=== PATIENT | male | born 1950 | race Hispanic/Latino ===

== ENCOUNTER 2019-03-31 06:05 | Inpatient (IN) | payer MEDICARE ==
[2019-03-31 06:52] LABS: Basophils # (Auto) 0.1 K/mm3 (0.0-0.1); Basophils % (Auto) 0.8 % (0.0-1.8); Eosinophils # (Auto) 0.1 K/mm3 (0.0-0.4); Eosinophils % (Auto) 2.3 % (0.0-4.3); Hematocrit 34.6 % (35.5-45.6); Hemoglobin 11.8 gm/dl (11.8-15.2); Lymphocytes # (Auto) 1.5 K/mm3 (1.2-5.4); Lymphocytes % (Auto) 23.3 % (13.4-35.0); Mean Corpuscular HGB Conc 34 % (32-34); Mean Corpuscular Volume 99 fl (84-94); Monocytes # (Auto) 0.5 K/mm3 (0.0-0.8); Monocytes % (Auto) 8.4 % (0.0-7.3); Platelet Count 198 K/mm3 (140-440); Red Blood Count 3.49 M/mm3 (3.65-5.03); Red Cell Distribution Width 13.7 % (13.2-15.2)
[2019-03-31] MEDS ORDERED: NACL 0.9% 500 ML 500 ML IV SCH (07:00)
[2019-03-31 07:02] LABS: INR 1.09 (0.87-1.13)
[2019-03-31 07:03] LABS: Partial Thromboplastin Time 29.7 Sec. (24.2-36.6)
[2019-03-31 07:09] LABS: BUN/Creatinine Ratio 18; Blood Urea Nitrogen 14 mg/dL (9-20); Calcium 8.5 mg/dL (8.4-10.2); Hemolysis Index 6
[2019-03-31] MEDS ORDERED: HEPARIN/NS 5000 UNIT/500ML(CATH LAB) 1,000 ML IR ONE ×2 (08:24→13:52)
[2019-03-31] MEDS ORDERED: XYLOCAINE 2% INFILTRATI ONE ×3 (08:25→13:52)
[2019-03-31] MEDS ORDERED: CALAN ONE ×2 (08:25→13:52)
[2019-03-31] MEDS ORDERED: NITROGLYCERIN SYRINGE 3 ML ONE ×2 (08:25→13:53)
[2019-03-31] MEDS ORDERED: VERSED ONE ×2 (08:26→13:53)
[2019-03-31] MEDS: SUBLIMAZE ONE ×2 (09:12→10:00)
[2019-03-31] MEDS: HEPARIN 10,000 UNITS/10 ML ONE ×2 (09:43→09:59)
[2019-03-31] MEDS ORDERED: ATROPINE 0.1% (CARDIAC) ONE ×2 (10:01→14:15)
[2019-03-31] MEDS ORDERED: PLAVIX ONE (10:12)
[2019-03-31] MEDS ORDERED: ALUM-MAG HYDROX-SIMETH 200-200-20MG/5ML ONE (10:13)
[2019-03-31] MEDS ORDERED: HEPARIN 10,000 UNITS/10 ML ONE ×2 (10:20→13:52)
--- NOTE | 2019-03-31 10:36 | Cardiac Catherization Report ---
CARDIAC CATHETERIZATION REFERRING PHYSICIAN: Delfin Stubbs MD. INDICATION FOR PROCEDURE: The patient is seen as an unscheduled visit in the office yesterday, found to have unstable angina, recurrent chest pain typical features, stress test last year unremarkable, known history of complex coronary artery disease, bypass, multiple PCIs, referred here for left heart catheterization. Risks, benefits, alternatives were discussed. The patient is already on antianginals. PROCEDURE IN DETAIL: The patient was brought to catheterization lab in a postabsorptive state, prepped and draped in sterile fashion. Significant right groin peripheral vascular disease noted. We used the left groin approach, 8 mL of 2% lidocaine used to anesthetize the left groin. A standard 6-Portuguese sheath placed in the left common femoral artery via modified Seldinger technique. All exchanges were performed to exchange a J-tip guidewire. JL3.5 catheter used to engage the left main. No dampening or ventricularization. Cineangiography performed in all projections. JR4 catheter used to cross the aortic valve under fluoroscopic guidance. Left ventriculography performed in 30 PIERRE and 30 ERIC projections via hand injections, catheter flushed. Manual pullback performed with continuous pressure monitoring. Catheter used to engage the right coronary. No dampening or ventricularization. Cineangiography performed in all projections. Next, catheter used to engage both SVGs. Cineangiography performed in all projections. Next, catheter used to engage the left subclavian and advanced carefully into the mid left subclavian, difficulty engaging the BAKER. Selective third order left subclavian angiography was performed. Next, selective BAKER angiography was performed in multiple projections. Next, catheter was carefully withdrawn from the left subclavian over a wire. DATA: Aortic pressure is 160/70, LV pressure is 160, LVEDP of 15 mmHg. Left ventriculography reveals normal systolic performance with estimated ejection fraction of 55-60%. No evidence of aortic stenosis. CORONARY ANATOMY: This is a right dominant system. Left main without significant disease, bifurcates left anterior descending and left circumflex. Left circumflex is [id number] sized vessel, courses AV groove, mild to moderate diffuse disease. Stent in the mid left circumflex is patent. No obstructive disease identified. Mid LAD is chronically occluded. There is a 70% proximal LAD stenosis, but feeds just 2 small diagonals, patent BAKER to LAD, patent SVG to OM. The right coronary is small with a chronic total occlusion distally. SVG to right coronary with a 90-95% eccentric ulcerated stenosis. This is the culprit lesion undoubtedly. BAKER to LAD is patent. Left subclavian without significant disease. At this point, we turned our attention to PCI. Heparin was given. Abnormal ACT is confirmed. The patient has already been loaded with aspirin and Plavix. I used a JR4 guide to engage the SVG to RCA. I used a pressure wire. IFR was noted to be 0.83, which is physiologically significant. Next, we direct stented with an [place] 2.75 x 22. Excellent angiographic result, 12 BEAU for 30 seconds. Intravascular ultrasound was performed, multiple passes were made, which reveals a well apposed and well expanded stent. Excellent final result, no complications are noted. The patient is clinically stable, chest pain free. I directly supervised the administration of moderate sedation with fentanyl and Versed from 9:11 a.m. to 10:06 a.m. No complications are noted. CONCLUSIONS: 1. Severe and complex multivessel coronary artery disease in this right dominant system. 2. Chronic total occlusion of the mid LAD with patent BAKER to LAD. 3. Occluded OM1 with patent SVG to OM. 4. Patent mid left circumflex stent, moderate diffuse small vessel disease in the distal left circumflex system. 5. Occlusion of the mid right coronary. 6. Ulcerated hazy culprit 95% stenosis of the mid SVG to RCA. Successful iFR/FFR directed and IVUS guided PCI with placement of drug-eluting stent Mauricio (2.75 x 22) with excellent final angiographic and ultrasonographic results. No immediate complications were noted. 7. Preserved left ventricular systolic performance, estimated ejection fraction of 55-60%. 8. No evidence of aortic stenosis. 9. High normal LVEDP. 10. Patent left subclavian. The patient is clinically stable, chest pain free. Standard groin care post-sheath once ACT less than 170. Blood pressure control. Aspirin, Plavix, statin therapy, primary and secondary prevention measures. Diet and lifestyle modification. Anticipate discharge in a.m. Results of procedure explained to the patient and family. All questions and concerns were addressed. JOB# [id number] SBM/NTS
[2019-03-31] MEDS ORDERED: MORPHINE ONE (13:37)
[2019-03-31] MEDS ORDERED: NACL 0.9% 1000 ML 1,000 ML ONE (13:46)
[2019-03-31] MEDS ORDERED: SUBLIMAZE ONE (13:53)
[2019-03-31] MEDS ORDERED: XYLOCAINE CARDIAC IV ONE (14:15)
[2019-03-31] MEDS ORDERED: ADRENALIN ONE (14:15)
[2019-03-31] MEDS ORDERED: PHENYLEPHRINE/NS Syringe 1,000 MCG/10 ML IV ONE (14:15)
[2019-03-31] MEDS ORDERED: NITROSTAT SL PRN (14:35)
[2019-03-31] MEDS ORDERED: D50W (25GM) Syringe IV PRN (14:36)
[2019-03-31] MEDS ORDERED: NACL 0.9% 500 ML 500 ML ONE (14:38)
[2019-03-31 14:44] LABS: Basophils % (Auto) 0.6 % (0.0-1.8); Eosinophils # (Auto) 0.1 K/mm3 (0.0-0.4); Eosinophils % (Auto) 1.7 % (0.0-4.3); Hematocrit 25.7 % (35.5-45.6); Hemoglobin 9.1 gm/dl (11.8-15.2); Lymphocytes # (Auto) 1.5 K/mm3 (1.2-5.4); Lymphocytes % (Auto) 21.9 % (13.4-35.0); Mean Corpuscular HGB Conc 35 % (32-34); Mean Corpuscular Volume 98 fl (84-94); Monocytes # (Auto) 0.5 K/mm3 (0.0-0.8); Monocytes % (Auto) 6.9 % (0.0-7.3); Platelet Count 180 K/mm3 (140-440); Red Blood Count 2.63 M/mm3 (3.65-5.03); Red Cell Distribution Width 13.4 % (13.2-15.2)
--- NOTE | 2019-03-31 14:55 | Consultation ---
History of Present Illness Consult date: 03/31/19 Requesting physician: MANOJ RODRIGUEZ Consult reason: other (cad) History of present illness: The pt is a 68 YO male with a past medical history of CAD s/p CABG and multiple PCIs, PVD, HTN, HLP, DM, PAF. He is followed in our office by Dr. Adrianne Stubbs. Pt presented today for scheduled elective LHC and subsequently underwent PCI of SVG to RCA via left groin approach. He was clinically and hemodynamically stable throughout LHC and PCI. His left groin sheath was pulled and pt subsequently developed left groin hematoma. He was evaluated by Dr. All Mary and was taken back to labor relations specialist where he underwent angiogram with ballooning and stenting of left SFA. He is being admitted per hospitalist to CCU. He is receiving PRBC tx. Past History Past Medical History: atrial fib, CAD, diabetes, hypertension, hyperlipidemia Medications and Allergies Allergies Allergy/AdvReac Type Severity Reaction Status Date / Time No Known Allergies Allergy Unverified 03/16/14 06:50 Home Medications Medication Instructions Recorded Confirmed Last Taken Type Aspirin [Adult Aspirin] 81 mg PO DAILY 03/31/19 03/31/19 03/30/19 History AtorvaSTATin [Lipitor] 20 mg PO DAILY 03/31/19 03/31/19 03/30/19 History Carvedilol [Coreg] 6.25 mg PO BID 03/31/19 03/31/19 03/30/19 History Clopidogrel [Plavix] 75 mg PO QDAY 03/31/19 03/31/19 03/30/19 History Ferrous Sulfate [Slow Release Iron 54 mg PO DAILY 03/31/19 03/31/19 03/30/19 History 47.5 Mg tab] Furosemide [Lasix TAB] 40 mg PO DAILY 03/31/19 03/31/19 03/30/19 History Gabapentin [Neurontin] 600 mg PO TID 03/31/19 03/31/19 03/30/19 History Lisinopril [Zestril TAB] 40 mg PO DAILY 03/31/19 03/31/19 03/30/19 History Mv,Will,Min/Iron/Folic Acid/Lut 1 each PO DAILY 03/31/19 03/31/19 03/30/19 History [Complete Multi Tablet] Nitroglycerin [Nitrostat] 0.4 mg SL Q5M PRN 03/31/19 03/31/19 3 Months Ago History ~12/29/18 Active Meds: Active Medications Aspirin (Aspirin) 325 mg PO QDAY [facility] Atorvastatin Calcium (Lipitor) 20 mg PO QHS [facility] Carvedilol (Coreg) 6.25 mg PO BID [facility] Clopidogrel Bisulfate (Plavix) 75 mg PO QDAY [facility] Dextrose (D50w (25gm) Syringe) 50 ml IV PRN PRN PRN Reason: Hypoglycemia Furosemide (Lasix) 40 mg PO DAILY@0600 [facility] Sodium Chloride (Nacl 0.9% 500 Ml) 500 mls @ 50 mls/hr IV DIRECT [facility] Stop: 03/31/19 16:59 Last Admin: 03/31/19 07:15 Dose: 50 mls/hr Documented by: Insulin Human Lispro (Humalog) 0 unit SUB-Q ACHS [facility]; Protocol Lisinopril (Zestril) 40 mg PO DAILY [facility] Nitroglycerin (Nitrostat) 0.4 mg SL Q5M PRN PRN Reason: Chest Pain Review of Systems Constitutional: no weight loss, no weight gain, no fever, no chills, no sweats Ears, nose, mouth and throat: no ear pain, no nose pain, no sinus pressure, no sinus pain Cardiovascular: no chest pain, no shortness of breath, no dyspnea on exertion Respiratory: no cough Gastrointestinal: no abdominal pain, no nausea Genitourinary Male: no dysuria, no hematuria Musculoskeletal: no neck stiffness, no neck pain Integumentary: no rash, no pruritis, no redness, no sores, no wounds Neurological: no head injury, no paralysis, no weakness, no parathesias, no numbness, no tingling, no seizures, no syncope Psychiatric: no anxiety Endocrine: no cold intolerance, no heat intolerance Hematologic/Lymphatic: no easy bruising, no easy bleeding Allergic/Immunologic: no urticaria, no wheezing Physical Examination Vital Signs Temp Pulse Resp BP Pulse Ox 97.7 F 62 20 152/69 100 03/31/19 06:25 03/31/19 06:25 03/31/19 06:25 03/31/19 06:25 03/31/19 06:25 HEENT: Positive: PERRL, Normocephaly, Mucus Membranes Moist Neck: Positive: neck supple, trachea midline Cardiac: Positive: Reg Rate and Rhythm, S1/S2 Lungs: Positive: Decreased Breath Sounds Neuro: Positive: Grossly Intact Incision: Cardiac Cath Site (left groin hematoma) Extremities: Absent: edema Results 03/31/19 14:18 03/31/19 06:40 Coagulation 03/31/19 Range/Units 06:40 PT 13.8 (12.2-14.9) Sec. INR 1.09 (0.87-1.13) APTT 29.7 (24.2-36.6) Sec. CBC 03/31/19 03/31/19 Range/Units 06:40 14:18 WBC 6.5 6.7 (4.5-11.0) K/mm3 RBC 3.49 L 2.63 L (3.65-5.03) M/mm3 Hgb 11.8 9.1 L (11.8-15.2) gm/dl Hct 34.6 L (35.5-45.6) % Plt Count 198 180 (140-440) K/mm3 Lymph # 1.5 1.5 (1.2-5.4) K/mm3 [place] # 0.5 0.5 (0.0-0.8) K/mm3 Eos # 0.1 0.1 (0.0-0.4) K/mm3 Baso # 0.1 0.0 (0.0-0.1) K/mm3 Comprehensive Metabolic Panel 03/31/19 Range/Units 06:40 Sodium 147 H (137-145) mmol/L Potassium 3.8 (3.6-5.0) mmol/L Chloride 110.1 H (98-107) mmol/L Carbon Dioxide 28 (22-30) mmol/L BUN 14 (9-20) mg/dL Creatinine 0.8 (0.8-1.5) mg/dL Glucose 108 H (75-100) mg/dL Calcium 8.5 (8.4-10.2) mg/dL - Imaging and Cardiology Cardiac cath: report reviewed EKG: report reviewed, image reviewed EKG interpretations - Telemetry EKG Rhythm: Sinus Rhythm - EKG Sinus rhythms and dysrhythmias: sinus rhythm Assessment and Plan Currently stable cardiac status s/p intervention of left SFA, currently receiving PRBC tx. To be admitted per hospitalist and tx to CCU. Monitor closely. The patient has been seen in conjunction with Dr. Adrianne Stubbs who agrees with the assessment and plan of care. - Patient Problems (1) Hematoma Current Visit: Yes Status: Acute (2) CAD (coronary artery disease) Current Visit: Yes Status: Chronic (3) Hx of CABG Current Visit: Yes Status: Chronic (4) Stented coronary artery Current Visit: Yes Status: Chronic (5) HTN (hypertension) Current Visit: Yes Status: Chronic (6) Hyperlipidemia Current Visit: Yes Status: Chronic (7) Diabetes Current Visit: Yes Status: Chronic (8) PVD (peripheral vascular disease) Current Visit: Yes Status: Chronic
[2019-03-31] MEDS: NORCO 5/325 PO PRN ×2 (15:20→21:54)
--- NOTE | 2019-03-31 15:22 | Event Note ---
Date: 03/31/19 Called to see patient the patient emergently in the OPPU for and expanding hematoma from the left groin access site associated with hypotenison. Upon arrival, patient with large left groin hematoma and pale appearance. Patient well known to me. Quickly discussed with the and decided to proceed emergently to back to the cathlab for diagnotic angiogram, of the left leg, with possible intervention.
--- NOTE | 2019-03-31 15:29 | History and Physical Report ---
History of Present Illness Date of admission: 03/31/19 14:42 Chief complaint: Low blood pressure History of present illness: 68 YO Male with HTN, HLD, Obesity, PVD, DM, CAD S/P CABG and multiple PCI, Paroxysmal Atrial Fib admitted directly to ICU s/p Left groin access. The patient was found to have an expanding left groin hematoma. Vascular surgery consulted and patient was taken urgently to the operating room. Pt was treated with surgical intervention. Pt admitted to ICU postoperatively. Pt resting comfortably postoperatively. Past History Past Medical History: atrial fib, CAD, diabetes, hypertension, hyperlipidemia Past Surgical History: Other (Vascular surgery.) Social history: , lives with family. denies: smoking, alcohol abuse, prescription drug abuse Family history: hypertension Medications and Allergies Allergies Allergy/AdvReac Type Severity Reaction Status Date / Time No Known Allergies Allergy Unverified 03/16/14 06:50 Home Medications Medication Instructions Recorded Confirmed Last Taken Type Aspirin [Adult Aspirin] 81 mg PO DAILY 03/31/19 03/31/19 03/30/19 History AtorvaSTATin [Lipitor] 20 mg PO DAILY 03/31/19 03/31/19 03/30/19 History Carvedilol [Coreg] 6.25 mg PO BID 03/31/19 03/31/19 03/30/19 History Clopidogrel [Plavix] 75 mg PO QDAY 03/31/19 03/31/19 03/30/19 History Ferrous Sulfate [Slow Release Iron 54 mg PO DAILY 03/31/19 03/31/19 03/30/19 History 47.5 Mg tab] Furosemide [Lasix TAB] 40 mg PO DAILY 03/31/19 03/31/19 03/30/19 History Gabapentin [Neurontin] 600 mg PO TID 03/31/19 03/31/19 03/30/19 History Lisinopril [Zestril TAB] 40 mg PO DAILY 03/31/19 03/31/19 03/30/19 History Mv,Will,Min/Iron/Folic Acid/Lut 1 each PO DAILY 03/31/19 03/31/19 03/30/19 History [Complete Multi Tablet] Nitroglycerin [Nitrostat] 0.4 mg SL Q5M PRN 03/31/19 03/31/19 3 Months Ago History ~12/29/18 Active Meds: Active Medications Acetaminophen/Hydrocodone Bitart ([place] 5/325) 1 each PO NOW PRN PRN Reason: Pain, Moderate (4-6) Last Admin: 03/31/19 15:20 Dose: 1 each Documented by: Aspirin (Aspirin) 325 mg PO QDAY [facility] Atorvastatin Calcium (Lipitor) 20 mg PO QHS [facility] Carvedilol (Coreg) 6.25 mg PO BID [facility] Clopidogrel Bisulfate (Plavix) 75 mg PO QDAY [facility] Dextrose (D50w (25gm) Syringe) 50 ml IV PRN PRN PRN Reason: Hypoglycemia Furosemide (Lasix) 40 mg PO DAILY@0600 [facility] Sodium Chloride (Nacl 0.9% 500 Ml) 500 mls @ 50 mls/hr IV DIRECT [facility] Stop: 03/31/19 16:59 Last Admin: 03/31/19 07:15 Dose: 50 mls/hr Documented by: Insulin Human Lispro (Humalog) 0 unit SUB-Q ACHS [facility]; Protocol Lisinopril (Zestril) 40 mg PO DAILY [facility] Nitroglycerin (Nitrostat) 0.4 mg SL Q5M PRN PRN Reason: Chest Pain Review of Systems Constitutional: no weight loss, no weight gain, no fever, no chills Ears, nose, mouth and throat: no ear pain, no ear discharge, no tinnitis, no decreased hearing, no nasal congestion Cardiovascular: no chest pain, no orthopnea, no palpitations, no rapid/irregular heart beat Respiratory: no cough, no cough with sputum, no excessive sputum, no hemoptysis Gastrointestinal: no nausea, no vomiting, no diarrhea, no constipation Genitourinary Male: no hematuria, no flank pain, no discharge, no urinary frequency, no urinary hesitancy Rectal: no pain, no incontinence, no bleeding Musculoskeletal: no neck stiffness, no neck pain, no shooting arm pain, no arm numbness/tingling, no low back pain Integumentary: no rash, no pruritis, no redness, no sores, no wounds Neurological: no transient paralysis, no paralysis, no weakness, no parathesias, no numbness Psychiatric: no anxiety, no memory loss, no change in sleep habits, no sleep disturbances, no insomnia, no hypersomnia, no change in appetite Endocrine: no heat intolerance, no polyphagia, no excessive thirst, no polydipsia, no polyuria, no nocturia, no excessive sweating Hematologic/Lymphatic: no easy bruising, no easy bleeding, no lymphadenopathy Allergic/Immunologic: no urticaria, no allergic rhinitis Exam - Constitutional Vitals: Temp Pulse Resp BP Pulse Ox 97.5 F L 58 L 16 120/55 100 03/31/19 14:58 03/31/19 15:15 03/31/19 15:20 03/31/19 15:11 03/31/19 15:15 General appearance: Present: mild distress - EENT Eyes: Present: PERRL ENT: hearing intact, clear oral mucosa - Neck Neck: Present: supple, normal ROM - Respiratory Respiratory effort: normal Respiratory: bilateral: CTA - Cardiovascular Heart Sounds: Present: S1 & S2. Absent: rub, click - Extremities Extremities: pulses symmetrical, No edema Peripheral Pulses: within normal limits - Abdominal General gastrointestinal: Present: soft, non-tender, non-distended, normal bowel sounds Male genitourinary: Present: normal - Integumentary Integumentary: Present: clear, warm, dry - Musculoskeletal Musculoskeletal: gait normal, strength equal bilaterally - Psychiatric Psychiatric: appropriate mood/affect, intact judgment & insight - Neurologic Neurologic: CNII-XII intact, moves all extremities Results - Labs CBC & Chem 7: 03/31/19 14:18 03/31/19 06:40 Labs: Abnormal lab results 03/31/19 03/31/19 03/31/19 Range/Units 06:40 06:40 10:02 RBC 3.49 L (3.65-5.03) M/mm3 Hgb (11.8-15.2) gm/dl Hct 34.6 L (35.5-45.6) % MCV 99 H (84-94) fl MCH 34 H (28-32) pg MCHC (32-34) % [place] % (Auto) 8.4 H (0.0-7.3) % Activated Clotting Time 197 H (74-137) Sodium 147 H (137-145) mmol/L Chloride 110.1 H (98-107) mmol/L Glucose 108 H (75-100) mg/dL Crossmatch 03/31/19 03/31/19 03/31/19 Range/Units 10:18 12:36 13:00 RBC (3.65-5.03) M/mm3 Hgb (11.8-15.2) gm/dl Hct (35.5-45.6) % MCV (84-94) fl MCH (28-32) pg MCHC (32-34) % [place] % (Auto) (0.0-7.3) % Activated Clotting Time 224 H 186 H 169 H (74-137) Sodium (137-145) mmol/L Chloride (98-107) mmol/L Glucose (75-100) mg/dL Crossmatch 03/31/19 03/31/19 Range/Units 14:18 14:18 RBC 2.63 L (3.65-5.03) M/mm3 Hgb 9.1 L (11.8-15.2) gm/dl Hct 25.7 L D (35.5-45.6) % MCV 98 H (84-94) fl MCH 35 H (28-32) pg MCHC 35 H (32-34) % [place] % (Auto) (0.0-7.3) % Activated Clotting Time (74-137) Sodium (137-145) mmol/L Chloride (98-107) mmol/L Glucose (75-100) mg/dL Crossmatch See Detail Assessment and Plan - Patient Problems (1) PVD (peripheral vascular disease) Current Visit: Yes Status: Chronic Plan to address problem: Complicated by Left Groin Hematoma: Vascular surgery consulted. Pt is S/P surgical intervention. supportive care. Admit to ICU, CBC, PRBC transfusion. critical care team consulted. The high probability of a clinically significant, sudden or life threatening deterioration of the [vascular, hematologic] system(s) required my full and direct attention, intervention and personal management. The aggregate critical care time was [65] minutes. This time is in addition to time spent performing reported procedures but includes the following: [x] Data Review and interpretation [x] Patient assessment and monitoring of vital signs [x] Documentation [x] Medication orders and management (2) Diabetes Current Visit: Yes Status: Chronic Plan to address problem: ADA diet, insulin, accu check, hypoglycemia protocol (3) HTN (hypertension) Current Visit: Yes Status: Chronic Qualifiers: Hypertension type: essential hypertension Qualified Code(s): I10 - Essential (primary) hypertension Plan to address problem: Monitor bp q shift, supportive care (4) DVT prophylaxis Current Visit: Yes Status: Acute Plan to address problem: SCD to BLE while in bed, supportive care, anticoagulation as per vascular surgery service.
--- NOTE | 2019-03-31 16:59 | Consultation ---
History of Present Illness - Reason for Consult Consult date: 03/31/19 Bleeding from Left Groin Access Site Requesting physician: TEMO BRODY - History of Present Illness The patient is a 68-year-old male who is well-known to me. I have treated him in the past for peripheral vessel disease. Today he underwent PCI for angina and post procedure he was taken to the recovery area for sheath pull. The recovery area after having his sheath will be initially did well however he began to complain of groin pain in developed an expanding left groin hematoma despite pressure being held over the access area. Pressure was held for an extended period of time and despite holding pressure the hematoma continued to expand. I was called emergently to evaluate the patient. Upon evaluation the patient was hemodynamically stable however he appeared pale. He was complaining of groin pain. The reminded me that he had a similar episode after I performed a peripheral vascular procedure in the past. He had no other complaints at that time. Past History Past Medical History: atrial fib, CAD, diabetes, hypertension, hyperlipidemia, PVD Past Surgical History: Other (lower arteriogram with intervention) Social history: Medications and Allergies Allergies Allergy/AdvReac Type Severity Reaction Status Date / Time No Known Allergies Allergy Unverified 03/16/14 06:50 Home Medications Medication Instructions Recorded Confirmed Last Taken Type Aspirin [Adult Aspirin] 81 mg PO DAILY 03/31/19 03/31/19 03/30/19 History AtorvaSTATin [Lipitor] 20 mg PO DAILY 03/31/19 03/31/19 03/30/19 History Carvedilol [Coreg] 6.25 mg PO BID 03/31/19 03/31/19 03/30/19 History Clopidogrel [Plavix] 75 mg PO QDAY 03/31/19 03/31/19 03/30/19 History Ferrous Sulfate [Slow Release Iron 54 mg PO DAILY 03/31/19 03/31/19 03/30/19 History 47.5 Mg tab] Furosemide [Lasix TAB] 40 mg PO DAILY 03/31/19 03/31/19 03/30/19 History Gabapentin [Neurontin] 600 mg PO TID 03/31/19 03/31/19 03/30/19 History Lisinopril [Zestril TAB] 40 mg PO DAILY 03/31/19 03/31/19 03/30/19 History Mv,Will,Min/Iron/Folic Acid/Lut 1 each PO DAILY 03/31/19 03/31/19 03/30/19 History [Complete Multi Tablet] Nitroglycerin [Nitrostat] 0.4 mg SL Q5M PRN 03/31/19 03/31/19 3 Months Ago History ~12/29/18 Active Meds: Active Medications Acetaminophen/Hydrocodone Bitart ([place] 5/325) 1 each PO NOW PRN PRN Reason: Pain, Moderate (4-6) Last Admin: 03/31/19 15:20 Dose: 1 each Documented by: Aspirin (Aspirin) 325 mg PO QDAY [facility] Atorvastatin Calcium (Lipitor) 20 mg PO QHS [facility] Carvedilol (Coreg) 6.25 mg PO BID [facility] Clopidogrel Bisulfate (Plavix) 75 mg PO QDAY [facility] Dextrose (D50w (25gm) Syringe) 50 ml IV PRN PRN PRN Reason: Hypoglycemia Furosemide (Lasix) 40 mg PO DAILY@0600 [facility] Sodium Chloride (Nacl 0.9% 500 Ml) 500 mls @ 50 mls/hr IV DIRECT [facility] Stop: 03/31/19 16:59 Last Admin: 03/31/19 07:15 Dose: 50 mls/hr Documented by: Insulin Human Lispro (Humalog) 0 unit SUB-Q ACHS [facility]; Protocol Lisinopril (Zestril) 40 mg PO DAILY [facility] Nitroglycerin (Nitrostat) 0.4 mg SL Q5M PRN PRN Reason: Chest Pain Review of Systems ROS unobtainable: due to mental status Exam - Constitutional Vitals: Temp Pulse Resp BP Pulse Ox 97.5 F L 60 14 127/61 100 03/31/19 15:15 03/31/19 16:30 03/31/19 16:30 03/31/19 16:30 03/31/19 16:30 General appearance: Present: severe distress - Cardiovascular Rhythm: other (bradycardia) - Extremities Extremities: abnormal (large left graoin hematoma) Results - Labs CBC & Chem 7: 03/31/19 14:18 03/31/19 06:40 Labs: Abnormal lab results 03/31/19 03/31/19 03/31/19 Range/Units 06:40 06:40 10:02 RBC 3.49 L (3.65-5.03) M/mm3 Hgb (11.8-15.2) gm/dl Hct 34.6 L (35.5-45.6) % MCV 99 H (84-94) fl MCH 34 H (28-32) pg MCHC (32-34) % [place] % (Auto) 8.4 H (0.0-7.3) % Activated Clotting Time 197 H (74-137) Sodium 147 H (137-145) mmol/L Chloride 110.1 H (98-107) mmol/L Glucose 108 H (75-100) mg/dL Crossmatch 03/31/19 03/31/19 03/31/19 Range/Units 10:18 12:36 13:00 RBC (3.65-5.03) M/mm3 Hgb (11.8-15.2) gm/dl Hct (35.5-45.6) % MCV (84-94) fl MCH (28-32) pg MCHC (32-34) % [place] % (Auto) (0.0-7.3) % Activated Clotting Time 224 H 186 H 169 H (74-137) Sodium (137-145) mmol/L Chloride (98-107) mmol/L Glucose (75-100) mg/dL Crossmatch 03/31/19 03/31/19 Range/Units 14:18 14:18 RBC 2.63 L (3.65-5.03) M/mm3 Hgb 9.1 L (11.8-15.2) gm/dl Hct 25.7 L D (35.5-45.6) % MCV 98 H (84-94) fl MCH 35 H (28-32) pg MCHC 35 H (32-34) % [place] % (Auto) (0.0-7.3) % Activated Clotting Time (74-137) Sodium (137-145) mmol/L Chloride (98-107) mmol/L Glucose (75-100) mg/dL Crossmatch See Detail Assessment and Plan Patient with with expanding left groin hematoma after intervention. Proceed emergently to cathlab for left lower extremity arteriogram with possible intervention.
--- NOTE | 2019-03-31 17:39 | Operative Report ---
Operative Report Operative Report: Date of Procedure: 03/31/2019 Pre-operative Diagnosis: Expanding Left Groin Hematoma Post-operative Diagnosis: Same Procedure(s): 1. Ultrasound-Guided Access Right Common Femoral Artery 2. Diagnostic Left Lower Extremity Arteriogram 3. Angioplasty and Stent of Left Common Femoral Artery To Control Hemorrhage with 8 x 5 cm Viabahn Stent Graft and 8 x 60 Hob[place] Balloon 4. Closure of Right Femoral Arteriotomy with 6 Vincentian Angio-Seal 5. Radiologic Supervision with Interpretation Surgeon: All Mary M.D. Housekeeper Child Care: None Anesthesia: 2% Lidocaine EBL: Minimal Counts: Correct Complications: None Condition: Critical But Stable Findings: Active extravasation from left femoral arteriotomy after PCI. After intervention there was no active bleeding noted. Specimen: None Indication: The patient is a 68-year-old male who underwent PCI to left femoral access today. After removal of the sheath, and the recovery area, he was noted to have an expanding left groin hematoma with hypotension. I was called to emergently evaluate the patient. Upon evaluation he was noted to have the expanding hematoma with some hypotension and pale appearance. It was decided that he required return to the label drier for diagnostic arteriogram and possible intervention. I discussed the risk, benefits, and alternatives with his and transported emergently for the procedure. Description of Procedure: The patient was taken to the label drier and laid in supine position. His right groin was then prepped and draped in normal sterile fashion. Ultrasound was used to identify the right common femoral artery and confirmed patency. Once patency was confirmed the overlying skin and soft tissue was anesthetized with lidocaine. A micropuncture technique was used with ultrasound guidance to access the right common femoral artery in retrograde fashion. A 0.035 Bentson wire was advanced to the aorta and a 5 Vincentian sheath was placed by Seldinger technique. An Omni Flush catheter and Bentson wire were advanced over the bifurcation and a left lower extremity arteriograms performed there revealed a large area of active extravasation from the common femoral artery centered over the femoral head. Once this was discovered the Bentson wire was advanced into the SFA and I quickly removed the Omni Flush catheter and advanced a 7 x 40 balloon that was inflated to nominal pressure to occlude the artery and controlled the hemorrhage. While the balloon was inflated ordered 2 units of emergency release packed red blood cells. While waiting for the emergency release blood the patient became more bradycardic with a heart rate had dropped to 34 bpm. This was associated with hypotension that cannot be detected with the automatic cuff as well as decrease in mental status so I made the decision to place a covered stent in the patient's common femoral artery to treat the area of extravasation. I had the circulating staff gather the necessary items which included: a 7 Vincentian 45 cm destination sheath, a 65 cm vertebral catheter, a 0.018 V18 Wire, an 8 x 5 cm Viabahn Stent Graft, and a 8 x 60 Hob[place] Balloon. Prior to deflating the balloon the patient was given a bolus of atropine which improved his heart rate into the 60s with a corresponding systolic blood pressure in the 120s. His mental status immediately improved. We then deflated the balloon and quickly exchanged the 5 Vincentian sheath for the 7 Vincentian 45 cm destination sheath, by Seldinger technique. I then inserted the v ertebral catheter and exchanged the Grab Mediason wire for the V 18 wire. While the 8 x 5 cm Viabahn Stent Graft is being loaded onto the wire I performed an arteriogram to roadmap the placement of the stent graft. I positioned the stent graft and deployed it and then removed the delivery catheter. I then postdilated the stent graft with the 8 x 60 Hob[place] Balloon. The follow-up arteriogram revealed no further extravasation of contrast from the left femoral arteriotomy. I then removed the V 18 wire and pulled the sheath into the right external iliac artery. I performed an arteriogram revealing that the sheath was well above the bifurcation so I attempted to close the right femoral arteriotomy with a ProGlide closure device however this failed. I used a 6 Vincentian Angio- Seal for closure. The patient tolerated the procedure well. A sterile dressing was applied to the access site and the patient was transported to the recovery area in critical but stable condition.
[2019-03-31] MEDS ORDERED: NACL 0.9% 500 ML 500 ML IV ONE (18:00)
--- NOTE | 2019-03-31 18:00 | Event Note ---
Date: 03/31/19 Evaluated patient. Looks much better. No evidence of active bleeding. States he feels much better. Complaining of some back pain from lying flat however that improved with sitting him up in the bed. HR 60's, SBP 140's. Skin color is significantly improved. Left groin stable. Right groin with minimal old blood oozing. Will transfuse 1 additional unit of PRBC because Hgb of 9 was drawn prior to equilibration. Will recheck H/H 1 hour after transfusion.
[2019-03-31 20:55] LABS: Hematocrit 28.7 % (35.5-45.6); Hemoglobin 9.9 gm/dl (11.8-15.2)
[2019-03-31] MEDS: HumaLOG SUB-Q SCH ×2 (21:52→21:57)
[2019-03-31] MEDS: COREG PO SCH (21:55)
[2019-03-31] MEDS ORDERED: ZOFRAN IV ONE (23:40)
--- NOTE | 2019-04-01 02:52 | XRay Report ---
CHEST 1 VIEW 1:54 AM INDICATION / CLINICAL INFORMATION: Post-PCI. COMPARISON: None available. FINDINGS: SUPPORT DEVICES: None. HEART / MEDIASTINUM: There is a median sternotomy. Cardiomegaly is noted. Pulmonary vasculature is no rmal for technique. LUNGS / PLEURA: No significant pulmonary or pleural abnormality. No pneumothorax. ADDITIONAL FINDINGS: No significant additional findings. IMPRESSION: No acute findings. Signer Name: Adeel Navarro MD Signed: 04/01/2019 2:47 AM Workstation Name: [employer] [id number]
[2019-04-01 05:32] LABS: Basophils % (Auto) 0.4 % (0.0-1.8); Eosinophils % (Auto) 0.2 % (0.0-4.3); Hematocrit 29.1 % (35.5-45.6); Hemoglobin 10.2 gm/dl (11.8-15.2); Lymphocytes % (Auto) 13.1 % (13.4-35.0); Mean Corpuscular HGB Conc 35 % (32-34); Mean Corpuscular Volume 95 fl (84-94); Monocytes # (Auto) 0.7 K/mm3 (0.0-0.8); Monocytes % (Auto) 8.6 % (0.0-7.3); Platelet Count 148 K/mm3 (140-440); Red Blood Count 3.06 M/mm3 (3.65-5.03); Red Cell Distribution Width 15.3 % (13.2-15.2)
[2019-04-01 05:53] LABS: BUN/Creatinine Ratio 15; Blood Urea Nitrogen 12 mg/dL (9-20); Creatine Kinase MB 1.2 ng/mL (0.0-4.0); Hemolysis Index 7
[2019-04-01] MEDS: LASIX PO SCH (06:21)
[2019-04-01] MEDS: HumaLOG SUB-Q SCH ×4 (08:07→22:43)
[2019-04-01] MEDS: NORCO 5/325 PO PRN ×2 (08:10→13:16)
[2019-04-01] MEDS: PLAVIX PO SCH (09:58)
[2019-04-01] MEDS: ZESTRIL PO SCH (09:58)
[2019-04-01] MEDS: ASPIRIN PO SCH (09:58)
[2019-04-01] MEDS: COREG PO SCH ×2 (10:11→22:41)
--- NOTE | 2019-04-01 10:45 | Consultation ---
History of Present Illness Consult date: 04/01/19 Requesting physician: DORIAN [facility] Reason for consult: other (Hypotension, Groin hematoma) History of present illness: 68 YO Male with HTN, HLD, Obesity, PVD, DM, CAD S/P CABG and multiple PCI, Paroxysmal Atrial Fib admitted directly to ICU s/p Left groin access. The patient was found to have an expanding left groin hematoma. Vascular surgery consulted and patient was taken urgently to the operating room. Pt was treated with surgical intervention. Pt admitted to ICU postoperatively. Pt resting comfortably postoperatively. I have been consulted for critical care management. RFC: Groin Hematoma s/p PCI with hypotension Pre-operative Diagnosis: Expanding Left Groin Hematoma Post-operative Diagnosis: Same Procedure(s): 1. Ultrasound-Guided Access Right Common Femoral Artery 2. Diagnostic Left Lower Extremity Arteriogram 3. Angioplasty and Stent of Left Common Femoral Artery To Control Hemorrhage with 8 x 5 cm Viabahn Stent Graft and 8 x 60 [place] Balloon 4. Closure of Right Femoral Arteriotomy with 6 [place] Angio-Seal 5. Radiologic Supervision with Interpretation Patient seen and examined. Vitals, labs, medications , chart reviewed. at the bedside. Review of Systems Constitutional: no weight loss, no weight gain, no fever, no chills Ears, nose, mouth and throat: no ear pain, no ear discharge, no tinnitis, no decreased hearing, no nasal congestion Cardiovascular: no chest pain, no orthopnea, no palpitations, no rapid/irregular heart beat Respiratory: no cough, no cough with sputum, no excessive sputum, no hemoptysis Gastrointestinal: no nausea, no vomiting, no diarrhea, no constipation Genitourinary Male: no hematuria, no flank pain, no discharge, no urinary frequency, no urinary hesitancy Rectal: no pain, no incontinence, no bleeding Musculoskeletal: no neck stiffness, no neck pain, no shooting arm pain, no arm numbness/tingling, no low back pain Integumentary: no rash, no pruritis, no redness, no sores, no wounds Neurological: no transient paralysis, no paralysis, no weakness, no parathesias, no numbness Psychiatric: no anxiety, no memory loss, no change in sleep habits, no sleep disturbances, no insomnia, no hypersomnia, no change in appetite Endocrine: no heat intolerance, no polyphagia, no excessive thirst, no polydipsia, no polyuria, no nocturia, no excessive sweating Hematologic/Lymphatic: no easy bruising, no easy bleeding, no lymphadenopathy Allergic/Immunologic: no urticaria, no allergic rhinitis Past History Past Medical History: atrial fib, CAD, diabetes, hypertension, hyperlipidemia Past Surgical History: Other (Vascular surgery.) Social history: , lives with family. denies: smoking, alcohol abuse, prescription drug abuse Family history: hypertension Medications and Allergies Allergies Allergy/AdvReac Type Severity Reaction Status Date / Time No Known Allergies Allergy Unverified 03/16/14 06:50 Home Medications Medication Instructions Recorded Confirmed Last Taken Type Aspirin [Adult Aspirin] 81 mg PO DAILY 03/31/19 03/31/19 03/30/19 History AtorvaSTATin [Lipitor] 20 mg PO DAILY 03/31/19 03/31/19 03/30/19 History Carvedilol [Coreg] 6.25 mg PO BID 03/31/19 03/31/19 03/30/19 History Clopidogrel [Plavix] 75 mg PO QDAY 03/31/19 03/31/19 03/30/19 History Ferrous Sulfate [Slow Release Iron 54 mg PO DAILY 03/31/19 03/31/19 03/30/19 History 47.5 Mg tab] Furosemide [Lasix TAB] 40 mg PO DAILY 03/31/19 03/31/19 03/30/19 History Gabapentin [Neurontin] 600 mg PO TID 03/31/19 03/31/19 03/30/19 History Lisinopril [Zestril TAB] 40 mg PO DAILY 03/31/19 03/31/19 03/30/19 History Mv,Will,Min/Iron/Folic Acid/Lut 1 each PO DAILY 03/31/19 03/31/19 03/30/19 History [Complete Multi Tablet] Nitroglycerin [Nitrostat] 0.4 mg SL Q5M PRN 03/31/19 03/31/19 3 Months Ago History ~12/29/18 HYDROcodone/APAP 5-325 [[place] 1 each PO Q6HR PRN #10 tablet 04/02/19 Unknown Rx 5/325] Active Meds: Active Medications Acetaminophen/Hydrocodone Bitart ([place] 5/325) 1 each PO NOW PRN PRN Reason: Pain, Moderate (4-6) Last Admin: 04/01/19 08:10 Dose: 1 each Documented by: Aspirin (Aspirin) 325 mg PO QDAY [facility] Last Admin: 04/01/19 09:58 Dose: 325 mg Documented by: Atorvastatin Calcium (Lipitor) 20 mg PO QHS [facility] Last Admin: 03/31/19 21:54 Dose: 20 mg Documented by: Carvedilol (Coreg) 6.25 mg PO BID [facility] Last Admin: 04/01/19 10:11 Dose: Not Given Documented by: Clopidogrel Bisulfate (Plavix) 75 mg PO QDAY [facility] Last Admin: 04/01/19 09:58 Dose: 75 mg Documented by: Dextrose (D50w (25gm) Syringe) 50 ml IV PRN PRN PRN Reason: Hypoglycemia Furosemide (Lasix) 40 mg PO DAILY@0600 [facility] Last Admin: 04/01/19 06:21 Dose: 40 mg Documented by: Hydromorphone HCl (Dilaudid) 0.5 mg IV Q2H PRN PRN Reason: Pain , Severe (7-10) Insulin Human Lispro (Humalog) 0 unit SUB-Q ACHS [facility]; Protocol Last Admin: 04/01/19 08:07 Dose: Not Given Documented by: Lisinopril (Zestril) 40 mg PO DAILY [facility] Last Admin: 04/01/19 09:58 Dose: 40 mg Documented by: Nitroglycerin (Nitrostat) 0.4 mg SL Q5M PRN PRN Reason: Chest Pain Physical Examination Vital signs: Vital Signs Temp Pulse Resp BP Pulse Ox 97.7 F 62 20 152/69 100 03/31/19 06:25 03/31/19 06:25 03/31/19 06:25 03/31/19 06:25 03/31/19 06:25 Constitutional: no acute distress, other (elderly looking male, normocephalic with normal respiratory effort at rest) Eyes: non-icteric ENT: oropharynx moist Neck: supple, no lymphadenopathy, no JVD Effort: normal Ascultation: Bilateral: clear Percussion: Bilateral: not dull Cardiovascular: regular rate and rhythm Gastrointestinal: normoactive bowel sounds, soft, non-tender, non-distended Integumentary: other (left groin hematoma) Extremities: no cyanosis, no edema, pulses normal, no ischemia or petechiae Neurologic: normal mental status, non-focal exam, pupils equal and round, CN II- XII normal Psychiatric: mood appropriate, affect normal Results - Laboratory Findings CBC and BMP: 04/02/19 12:59 04/01/19 04:20 PT/INR, D-dimer PT 13.8 Sec. (12.2-14.9) 03/31/19 06:40 INR 1.09 (0.87-1.13) 03/31/19 06:40 Abnormal lab findings: Abnormal Labs 03/31/19 03/31/19 03/31/19 06:40 06:40 10:02 RBC 3.49 L Hgb Hct 34.6 L MCV 99 H MCH 34 H MCHC RDW Lymph % (Auto) [place] % (Auto) 8.4 H Lymph # Seg Neutrophils % Activated Clotting Time 197 H Sodium 147 H Chloride 110.1 H Glucose 108 H POC Glucose Calcium Total Creatine Kinase Crossmatch 03/31/19 03/31/19 03/31/19 10:18 12:36 13:00 RBC Hgb Hct MCV MCH MCHC RDW Lymph % (Auto) [place] % (Auto) Lymph # Seg Neutrophils % Activated Clotting Time 224 H 186 H 169 H Sodium Chloride Glucose POC Glucose Calcium Total Creatine Kinase Crossmatch 03/31/19 03/31/19 03/31/19 14:18 14:18 20:46 RBC 2.63 L Hgb 9.1 L 9.9 L Hct 25.7 L D 28.7 L MCV 98 H MCH 35 H MCHC 35 H RDW Lymph % (Auto) [place] % (Auto) Lymph # Seg Neutrophils % Activated Clotting Time Sodium Chloride Glucose POC Glucose Calcium Total Creatine Kinase Crossmatch See Detail 03/31/19 04/01/19 04/01/19 21:21 04:20 04:20 RBC 3.06 L Hgb 10.2 L Hct 29.1 L MCV 95 H MCH 33 H MCHC 35 H RDW 15.3 H Lymph % (Auto) 13.1 L [place] % (Auto) 8.6 H Lymph # 1.0 L Seg Neutrophils % 77.7 H Activated Clotting Time Sodium Chloride 109.3 H Glucose 120 H POC Glucose 207 H Calcium 8.0 L Total Creatine Kinase 38 L Crossmatch 04/01/19 07:46 RBC Hgb Hct MCV MCH MCHC RDW Lymph % (Auto) [place] % (Auto) Lymph # Seg Neutrophils % Activated Clotting Time Sodium Chloride Glucose POC Glucose 111 H Calcium Total Creatine Kinase Crossmatch Assessment and Plan Groin Hematoma s/p PCI CAD (coronary artery disease) Stented coronary artery HTN (hypertension) Hyperlipidemia Diabetes PVD (peripheral vascular disease) - s/p angiogram with ballooning and stenting of left SFA - Monitor in the ICU- hemoglobin and hemodynamics closley - Status post PCI of SVG to RCA via left groin approach. - Continue to monitor BP and continue chronic home medications - continue statin therapy - consistent carb diet, monitor glycemic control - continue aspirin and Plavix and statin for PVD, - continue other care per attending / other consultants Discussed care plan with the patient and his . Answered all their questions Thank you for the consult. Will follow
--- NOTE | 2019-04-01 11:08 | Progress Note ---
Assessment and Plan The patient is stable with improved heart rate and hemoglobin. He is sitting up comfortably in bed. His left groin hematoma will take weeks to months to resolve. From a vascular standpoint, the patient is okay to discharge home with restrictions on his activities until there is been interval follow-up. He will need to follow up in our office in 2 weeks. The patient also has known peripheral vascular disease for which she has undergone interventions and given the decreased pulses on his right, the patient may need additional inte rventions. Subjective Date of service: 04/01/19 Principal diagnosis: cardiac evaluation Interval history: A patient with a history of cardiac authorization with subsequent post procedural bleeding at the sheath insertion site. He underwent repeat intervention with stent placement across the puncture site in the left common femoral artery. Patient with left groin tenderness and a left subcutaneous hematoma. His right groin pressure dressing was removed. Right groin is soft. The patient has dopplerable dorsalis pedis and posterior tibial pulses on the left with fainter pulses on the right. No complaints of leg pain. Objective - Constitutional Vitals: Vital Signs - 12hr 03/31/19 03/31/19 03/31/19 23:15 23:19 23:30 Temperature 98.7 F Pulse Rate 39 L 39 L 45 L Pulse Rate [ From Monitor] Respiratory 15 13 16 Rate Blood Pressure 96/38 91/38 91/46 O2 Sat by Pulse 99 98 100 Oximetry 03/31/19 03/31/19 04/01/19 23:45 23:49 00:00 Temperature 98.7 F 97.7 F Pulse Rate 52 L 51 L 53 L Pulse Rate [ 53 L From Monitor] Respiratory 13 12 11 L Rate Blood Pressure 108/48 108/48 115/46 O2 Sat by Pulse 98 98 99 Oximetry 04/01/19 04/01/19 04/01/19 00:15 00:30 00:45 Temperature 98.3 F 98.3 F Pulse Rate 48 L 52 L 63 Pulse Rate [ From Monitor] Respiratory 12 12 11 L Rate Blood Pressure 116/46 117/48 123/54 O2 Sat by Pulse 100 100 99 Oximetry 04/01/19 04/01/19 04/01/19 01:00 01:15 01:22 Temperature 98.3 F Pulse Rate 56 L 54 L 54 L Pulse Rate [ From Monitor] Respiratory 11 L 11 L 12 Rate Blood Pressure 131/61 125/54 125/54 O2 Sat by Pulse 100 100 100 Oximetry 04/01/19 04/01/19 04/01/19 01:30 01:45 02:00 Temperature Pulse Rate 53 L 57 L 55 L Pulse Rate [ From Monitor] Respiratory 12 11 L 11 L Rate Blood Pressure 132/56 130/54 129/56 O2 Sat by Pulse 100 100 99 Oximetry 04/01/19 04/01/19 04/01/19 02:15 02:30 02:45 Temperature Pulse Rate 54 L 55 L 52 L Pulse Rate [ From Monitor] Respiratory 11 L 12 12 Rate Blood Pressure 124/51 117/49 120/50 O2 Sat by Pulse 98 99 99 Oximetry 04/01/19 04/01/19 04/01/19 03:00 03:15 03:30 Temperature Pulse Rate 55 L 60 55 L Pulse Rate [ From Monitor] Respiratory 12 11 L 11 L Rate Blood Pressure 121/51 127/53 123/54 O2 Sat by Pulse 99 100 99 Oximetry 04/01/19 04/01/19 04/01/19 03:45 04:00 04:15 Temperature 98.7 F Pulse Rate 57 L 57 L 67 Pulse Rate [ 57 L From Monitor] Respiratory 11 L 10 L 12 Rate Blood Pressure 118/54 124/51 123/58 O2 Sat by Pulse 100 100 100 Oximetry 04/01/19 04/01/19 04/01/19 04:30 04:45 05:00 Temperature Pulse Rate 59 L 58 L 59 L Pulse Rate [ From Monitor] Respiratory 11 L 11 L 11 L Rate Blood Pressure 133/51 130/49 117/53 O2 Sat by Pulse 100 100 100 Oximetry 04/01/19 04/01/19 04/01/19 05:15 05:30 05:45 Temperature Pulse Rate 59 L 58 L 67 Pulse Rate [ From Monitor] Respiratory 11 L 10 L 11 L Rate Blood Pressure 126/52 133/51 138/60 O2 Sat by Pulse 100 99 100 Oximetry 04/01/19 04/01/19 04/01/19 06:00 06:15 06:31 Temperature Pulse Rate 69 67 72 Pulse Rate [ From Monitor] Respiratory 14 10 L 11 L Rate Blood Pressure 138/61 138/61 138/61 O2 Sat by Pulse 99 99 99 Oximetry 04/01/19 04/01/19 04/01/19 06:45 07:00 07:15 Temperature Pulse Rate 65 70 62 Pulse Rate [ From Monitor] Respiratory 10 L 11 L 10 L Rate Blood Pressure 138/61 145/66 145/66 O2 Sat by Pulse 98 99 99 Oximetry 04/01/19 04/01/19 04/01/19 07:27 07:31 07:45 Temperature Pulse Rate 62 67 Pulse Rate [ From Monitor] Respiratory 12 11 L Rate Blood Pressure 145/66 145/66 O2 Sat by Pulse 98 99 95 Oximetry 04/01/19 04/01/19 04/01/19 08:00 08:15 08:31 Temperature 98.3 F Pulse Rate 68 69 65 Pulse Rate [ From Monitor] Respiratory 13 14 11 L Rate Blood Pressure 154/70 154/70 154/70 O2 Sat by Pulse 99 98 99 Oximetry 04/01/19 04/01/19 04/01/19 08:45 09:01 09:15 Temperature Pulse Rate 67 66 69 Pulse Rate [ From Monitor] Respiratory 11 L 11 L 10 L Rate Blood Pressure 154/70 138/58 138/58 O2 Sat by Pulse 99 98 98 Oximetry 04/01/19 04/01/19 04/01/19 09:31 09:45 10:00 Temperature Pulse Rate 77 77 70 Pulse Rate [ From Monitor] Respiratory 14 13 Rate Blood Pressure 154/70 154/70 O2 Sat by Pulse 98 99 Oximetry 04/01/19 04/01/19 04/01/19 10:01 10:15 10:31 Temperature Pulse Rate 68 71 64 Pulse Rate [ From Monitor] Respiratory 11 L 13 13 Rate Blood Pressure 132/55 132/55 132/55 O2 Sat by Pulse 98 98 98 Oximetry 04/01/19 04/01/19 10:45 11:00 Temperature Pulse Rate 60 57 L Pulse Rate [ From Monitor] Respiratory 10 L 12 Rate Blood Pressure 132/55 137/61 O2 Sat by Pulse 98 98 Oximetry General appearance: Present: no acute distress - EENT Eyes: EOM intact ENT: hearing intact - Neck Neck: supple, normal ROM - Respiratory Respiratory effort: normal - Breasts Breasts: deferred - Cardiovascular Rhythm: regular Extremities: abnormal - Gastrointestinal General gastrointestinal: Present: deferred Rectal Exam: deferred - Genitourinary Male genitourinary: deferred - Psychiatric Psychiatric: appropriate mood/affect, cooperative - Labs CBC & Chem 7: 04/01/19 04:20 04/01/19 04:20 Labs: Abnormal lab results 03/31/19 03/31/19 03/31/19 Range/Units 10:02 10:18 12:36 RBC (3.65-5.03) M/mm3 Hgb (11.8-15.2) gm/dl Hct (35.5-45.6) % MCV (84-94) fl MCH (28-32) pg MCHC (32-34) % RDW (13.2-15.2) % Lymph % (Auto) (13.4-35.0) % [place] % (Auto) (0.0-7.3) % Lymph # (1.2-5.4) K/mm3 Seg Neutrophils % (40.0-70.0) % Activated Clotting Time 197 H 224 H 186 H (74-137) Chloride (98-107) mmol/L Glucose (75-100) mg/dL POC Glucose (70-105) Calcium (8.4-10.2) mg/dL Total Creatine Kinase (55-170) units/L Crossmatch 03/31/19 03/31/19 03/31/19 Range/Units 13:00 14:18 14:18 RBC 2.63 L (3.65-5.03) M/mm3 Hgb 9.1 L (11.8-15.2) gm/dl Hct 25.7 L D (35.5-45.6) % MCV 98 H (84-94) fl MCH 35 H (28-32) pg MCHC 35 H (32-34) % RDW (13.2-15.2) % Lymph % (Auto) (13.4-35.0) % [place] % (Auto) (0.0-7.3) % Lymph # (1.2-5.4) K/mm3 Seg Neutrophils % (40.0-70.0) % Activated Clotting Time 169 H (74-137) Chloride (98-107) mmol/L Glucose (75-100) mg/dL POC Glucose (70-105) Calcium (8.4-10.2) mg/dL Total Creatine Kinase (55-170) units/L Crossmatch See Detail 03/31/19 03/31/19 04/01/19 Range/Units 20:46 21:21 04:20 RBC 3.06 L (3.65-5.03) M/mm3 Hgb 9.9 L 10.2 L (11.8-15.2) gm/dl Hct 28.7 L 29.1 L (35.5-45.6) % MCV 95 H (84-94) fl MCH 33 H (28-32) pg MCHC 35 H (32-34) % RDW 15.3 H (13.2-15.2) % Lymph % (Auto) 13.1 L (13.4-35.0) % [place] % (Auto) 8.6 H (0.0-7.3) % Lymph # 1.0 L (1.2-5.4) K/mm3 Seg Neutrophils % 77.7 H (40.0-70.0) % Activated Clotting Time (74-137) Chloride (98-107) mmol/L Glucose (75-100) mg/dL POC Glucose 207 H (70-105) Calcium (8.4-10.2) mg/dL Total Creatine Kinase (55-170) units/L Crossmatch 04/01/19 04/01/19 Range/Units 04:20 07:46 RBC (3.65-5.03) M/mm3 Hgb (11.8-15.2) gm/dl Hct (35.5-45.6) % MCV (84-94) fl MCH (28-32) pg MCHC (32-34) % RDW (13.2-15.2) % Lymph % (Auto) (13.4-35.0) % [place] % (Auto) (0.0-7.3) % Lymph # (1.2-5.4) K/mm3 Seg Neutrophils % (40.0-70.0) % Activated Clotting Time (74-137) Chloride 109.3 H (98-107) mmol/L Glucose 120 H (75-100) mg/dL POC Glucose 111 H (70-105) Calcium 8.0 L (8.4-10.2) mg/dL Total Creatine Kinase 38 L (55-170) units/L Crossmatch Medications & Allergies - Medications Allergies/Adverse Reactions: Allergies No Known Allergies Allergy (Unverified 03/16/14 06:50) Home Medications: Home Medications Medication Instructions Recorded Confirmed Last Taken Type Aspirin [Adult Aspirin] 81 mg PO DAILY 03/31/19 03/31/19 03/30/19 History AtorvaSTATin [Lipitor] 20 mg PO DAILY 03/31/19 03/31/19 03/30/19 History Carvedilol [Coreg] 6.25 mg PO BID 03/31/19 03/31/19 03/30/19 History Clopidogrel [Plavix] 75 mg PO QDAY 03/31/19 03/31/19 03/30/19 History Ferrous Sulfate [Slow Release Iron 54 mg PO DAILY 03/31/19 03/31/19 03/30/19 History 47.5 Mg tab] Furosemide [Lasix TAB] 40 mg PO DAILY 03/31/19 03/31/19 03/30/19 History Gabapentin [Neurontin] 600 mg PO TID 03/31/19 03/31/19 03/30/19 History Lisinopril [Zestril TAB] 40 mg PO DAILY 03/31/19 03/31/19 03/30/19 History Mv,Will,Min/Iron/Folic Acid/Lut 1 each PO DAILY 03/31/19 03/31/19 03/30/19 History [Complete Multi Tablet] Nitroglycerin [Nitrostat] 0.4 mg SL Q5M PRN 03/31/19 03/31/19 3 Months Ago History ~12/29/18 Active Medications: Generic Name Dose Route Start Last Admin Trade Name Freq PRN Reason Stop Dose Admin Acetaminophen/Hydrocodone Bitart 1 each 03/31/19 15:14 04/01/19 08:10 [place] 5/325 PO 1 each NOW PRN Administration Pain, Moderate (4-6) Aspirin 325 mg 04/01/19 10:00 04/01/19 09:58 Aspirin PO 325 mg QDAY [facility] Administration Atorvastatin Calcium 20 mg 03/31/19 22:00 03/31/19 21:54 Lipitor PO 20 mg QHS [facility] Administration Carvedilol 6.25 mg 03/31/19 22:00 04/01/19 10:11 Coreg PO Not Given BID [facility] Clopidogrel Bisulfate 75 mg 04/01/19 10:00 04/01/19 09:58 Plavix PO 75 mg QDAY [facility] Administration Dextrose 50 ml 03/31/19 14:36 D50w (25gm) Syringe IV PRN PRN Hypoglycemia Furosemide 40 mg 04/01/19 06:00 04/01/19 06:21 Lasix PO 40 mg DAILY@0600 [facility] Administration Hydromorphone HCl 0.5 mg 03/31/19 20:34 Dilaudid IV Q2H PRN Pain , Severe (7-10) Insulin Human Lispro 0 unit 03/31/19 16:30 04/01/19 08:07 Humalog SUB-Q Not Given ACHS [facility] Protocol Lisinopril 40 mg 04/01/19 10:00 04/01/19 09:58 Zestril PO 40 mg DAILY [facility] Administration Nitroglycerin 0.4 mg 03/31/19 14:35 Nitrostat SL Q5M PRN Chest Pain
--- NOTE | 2019-04-01 13:25 | Progress Note ---
Assessment and Plan Currently stable cardiac status s/p intervention of left common femoral artery yesterday. H/H stable. Cont present cardiac management. Per vascular team "his left groin hematoma will take weeks to months to resolve. From a vascular standpoint, the patient is okay to discharge home with restrictions on his activities until there is been interval follow-up. He will need to follow up in our office in 2 weeks. The patient also has known peripheral vascular disease for which she has undergone interventions and given the decreased pulses on his right, the patient may need additional interventions." Encourage increased activity and ambulation today. Pt may tx out of CCU to telemetry from cardiology standpoint. Likely d/c home in AM if he remains stable. The patient has been seen in conjunction with Dr. Adrianne Stubbs who agrees with the assessment and plan of care. - Patient Problems (1) Hematoma Current Visit: Yes Status: Acute (2) CAD (coronary artery disease) Current Visit: Yes Status: Chronic (3) Hx of CABG Current Visit: Yes Status: Chronic (4) Stented coronary artery Current Visit: Yes Status: Chronic (5) HTN (hypertension) Current Visit: Yes Status: Chronic Qualifiers: Hypertension type: essential hypertension Qualified Code(s): I10 - Essential (primary) hypertension (6) Hyperlipidemia Current Visit: Yes Status: Chronic (7) Diabetes Current Visit: Yes Status: Chronic (8) PVD (peripheral vascular disease) Current Visit: Yes Status: Chronic Subjective Date of service: 04/01/19 Principal diagnosis: cardiac evaluation Interval history: pt resting comfortably in bed, no current cardiac complaints. Objective Last Vital Signs Temp 98.6 F 04/01/19 12:00 Pulse 62 04/01/19 13:01 Resp 14 04/01/19 13:01 BP 121/42 04/01/19 13:01 Pulse Ox 97 04/01/19 13:01 - Physical Examination General: No Apparent Distress HEENT: Positive: PERRL, Normocephaly, Mucus Membranes Moist Neck: Positive: neck supple, trachea midline Cardiac: Positive: Reg Rate and Rhythm, S1/S2 Lungs: Positive: clear to auscultation Neuro: Positive: Grossly Intact Incision: Cardiac Cath Site (left groin hematoma) Extremities: Absent: edema - Labs and Meds Cardiac Enzymes 04/01/19 Range/Units 04:20 CK-MB (CK-2) 1.2 (0.0-4.0) ng/mL CBC 03/31/19 03/31/19 04/01/19 Range/Units 14:18 20:46 04:20 WBC 6.7 7.6 (4.5-11.0) K/mm3 RBC 2.63 L 3.06 L (3.65-5.03) M/mm3 Hgb 9.1 L 9.9 L 10.2 L (11.8-15.2) gm/dl Hct 25.7 L D 28.7 L 29.1 L (35.5-45.6) % Plt Count 180 148 (140-440) K/mm3 Lymph # 1.5 1.0 L (1.2-5.4) K/mm3 [place] # 0.5 0.7 (0.0-0.8) K/mm3 Eos # 0.1 0.0 (0.0-0.4) K/mm3 Baso # 0.0 0.0 (0.0-0.1) K/mm3 Comprehensive Metabolic Panel 04/01/19 Range/Units 04:20 Sodium 143 (137-145) mmol/L Potassium 4.0 (3.6-5.0) mmol/L Chloride 109.3 H (98-107) mmol/L Carbon Dioxide 26 (22-30) mmol/L BUN 12 (9-20) mg/dL Creatinine 0.8 (0.8-1.5) mg/dL Glucose 120 H (75-100) mg/dL Calcium 8.0 L (8.4-10.2) mg/dL - Imaging and Cardiology EKG: report reviewed, image reviewed Cardiac cath: report reviewed - EKG Sinus rhythms and dysrhythmias: sinus rhythm
--- NOTE | 2019-04-01 15:18 | Progress Note ---
Assessment and Plan /The left groin hematoma following cardiac cath - s/p angiogram with ballooning and stenting of left SFA - Continue to monitor clinically, monitor H&H / CAD (coronary artery disease) with a history of CABG - Status post PCI of SVG to RCA via left groin approach. / HTN (hypertension) Continue to monitor and continue current meds / Hyperlipidemia, continue statin / Diabetes, consistent carb diet and exercise / PVD (peripheral vascular disease), continue aspirin and Plavix and statin Brief history: The pt is a 68 YO male with a past medical history of CAD s/p CABG and multiple PCIs, PVD, HTN, HLP, DM, PAF. He is followed in our office by Dr. Adrianne Stubbs. Pt presented today for scheduled elective LHC and subsequently underwent PCI of SVG to RCA via left groin approach. He was clinically and hemodynamically stable throughout LHC and PCI. His left groin sheath was pulled and pt subsequently developed left groin hematoma. He was evaluated by Dr. All Mary and was taken back to label printing machinist where he underwent angiogram with ballooning and stenting of left SFA. He is being admitted per hospitalist to CCU. He is receiving PRBC tx. Hospitalist physical: GENERAL: well-developed and well-nourished white male lying on bed appeared to be in no discomfort. HEENT: Normocephalic. Atraumatic. No conjunctival congestion or icterus. Patient has moist mucous membranes. NECK: Supple. Trachea midline. CHEST/LUNGS: Clear to auscultated bilaterally, breathing nonlabored. No wheezes crackles or rhonchi. HEART/CARDIOVASCULAR: Regular in rate and rhythm. S1 and S2 positive. ABDOMEN: Abdomen is soft, nontender. Patient has normal bowel sounds. Left groin wound with wound dressing without any bleeding SKIN: There is no rash. Warm and dry. NEURO: No focal motor deficit. Follows command. MUSCULOSKELETAL: No joint effusion or tenderness. EXTRIMITY: No edema, no cyanosis or clubbing. PSYCH: Cooperative. Subjective Date of service: 04/01/19 Principal diagnosis: cardiac evaluation Interval history: Patient seen and examined. Medical records and medication list reviewed. No acute event overnight noted by the RN. Patient denies any chest pain or difficulty breathing. Patient is tolerating diet. Discussed plan of care at bedside with patient. No further bleeding episodes from the left groin hematoma Patient is planned to transfer to telemetry today Objective - Constitutional Vitals: Vital Signs - 12hr 04/01/19 04/01/19 04/01/19 03:30 03:45 04:00 Temperature 98.7 F Pulse Rate 55 L 57 L 57 L Pulse Rate [ 57 L From Monitor] Respiratory 11 L 11 L 10 L Rate Blood Pressure 123/54 118/54 124/51 O2 Sat by Pulse 99 100 100 Oximetry 04/01/19 04/01/19 04/01/19 04:15 04:30 04:45 Temperature Pulse Rate 67 59 L 58 L Pulse Rate [ From Monitor] Respiratory 12 11 L 11 L Rate Blood Pressure 123/58 133/51 130/49 O2 Sat by Pulse 100 100 100 Oximetry 04/01/19 04/01/19 04/01/19 05:00 05:15 05:30 Temperature Pulse Rate 59 L 59 L 58 L Pulse Rate [ From Monitor] Respiratory 11 L 11 L 10 L Rate Blood Pressure 117/53 126/52 133/51 O2 Sat by Pulse 100 100 99 Oximetry 04/01/19 04/01/19 04/01/19 05:45 06:00 06:15 Temperature Pulse Rate 67 69 67 Pulse Rate [ From Monitor] Respiratory 11 L 14 10 L Rate Blood Pressure 138/60 138/61 138/61 O2 Sat by Pulse 100 99 99 Oximetry 04/01/19 04/01/19 04/01/19 06:31 06:45 07:00 Temperature Pulse Rate 72 65 70 Pulse Rate [ From Monitor] Respiratory 11 L 10 L 11 L Rate Blood Pressure 138/61 138/61 145/66 O2 Sat by Pulse 99 98 99 Oximetry 04/01/19 04/01/19 04/01/19 07:15 07:27 07:31 Temperature Pulse Rate 62 62 Pulse Rate [ From Monitor] Respiratory 10 L 12 Rate Blood Pressure 145/66 145/66 O2 Sat by Pulse 99 98 99 Oximetry 04/01/19 04/01/19 04/01/19 07:45 08:00 08:15 Temperature 98.3 F Pulse Rate 67 68 69 Pulse Rate [ From Monitor] Respiratory 11 L 13 14 Rate Blood Pressure 145/66 154/70 154/70 O2 Sat by Pulse 95 99 98 Oximetry 04/01/19 04/01/19 04/01/19 08:31 08:45 09:01 Temperature Pulse Rate 65 67 66 Pulse Rate [ From Monitor] Respiratory 11 L 11 L 11 L Rate Blood Pressure 154/70 154/70 138/58 O2 Sat by Pulse 99 99 98 Oximetry 04/01/19 04/01/19 04/01/19 09:15 09:31 09:45 Temperature Pulse Rate 69 77 77 Pulse Rate [ From Monitor] Respiratory 10 L 14 13 Rate Blood Pressure 138/58 154/70 154/70 O2 Sat by Pulse 98 98 99 Oximetry 04/01/19 04/01/19 04/01/19 10:00 10:01 10:15 Temperature Pulse Rate 70 68 71 Pulse Rate [ From Monitor] Respiratory 11 L 13 Rate Blood Pressure 132/55 132/55 O2 Sat by Pulse 98 98 Oximetry 04/01/19 04/01/19 04/01/19 10:31 10:45 11:00 Temperature Pulse Rate 64 60 57 L Pulse Rate [ From Monitor] Respiratory 13 10 L 12 Rate Blood Pressure 132/55 132/55 137/61 O2 Sat by Pulse 98 98 98 Oximetry 04/01/19 04/01/19 04/01/19 11:15 11:31 11:45 Temperature Pulse Rate 56 L 58 L 57 L Pulse Rate [ From Monitor] Respiratory 14 12 10 L Rate Blood Pressure 137/61 137/61 137/61 O2 Sat by Pulse 99 99 99 Oximetry 04/01/19 04/01/19 04/01/19 12:00 12:01 12:15 Temperature 98.6 F Pulse Rate 70 65 Pulse Rate [ 70 From Monitor] Respiratory 16 20 13 Rate Blood Pressure 127/62 127/62 O2 Sat by Pulse 99 97 Oximetry 04/01/19 04/01/19 04/01/19 12:31 12:45 13:01 Temperature Pulse Rate 67 67 62 Pulse Rate [ From Monitor] Respiratory 14 14 14 Rate Blood Pressure 127/62 121/42 O2 Sat by Pulse 97 89 97 Oximetry 04/01/19 04/01/19 04/01/19 13:15 13:31 13:45 Temperature Pulse Rate 68 61 77 Pulse Rate [ From Monitor] Respiratory 13 16 26 H Rate Blood Pressure 121/42 121/42 121/42 O2 Sat by Pulse 97 97 96 Oximetry 04/01/19 04/01/19 04/01/19 14:01 14:15 14:31 Temperature Pulse Rate 78 77 63 Pulse Rate [ From Monitor] Respiratory 14 15 13 Rate Blood Pressure 121/42 136/38 136/38 O2 Sat by Pulse 97 97 97 Oximetry 04/01/19 04/01/19 14:45 15:00 Temperature Pulse Rate 64 58 L Pulse Rate [ From Monitor] Respiratory 13 14 Rate Blood Pressure 136/38 138/45 O2 Sat by Pulse 96 95 Oximetry - Labs CBC & Chem 7: 04/02/19 12:59 04/01/19 04:20 Labs: Abnormal lab results 03/31/19 03/31/19 03/31/19 Range/Units 14:18 20:46 21:21 RBC (3.65-5.03) M/mm3 Hgb 9.9 L (11.8-15.2) gm/dl Hct 28.7 L (35.5-45.6) % MCV (84-94) fl MCH (28-32) pg MCHC (32-34) % RDW (13.2-15.2) % Lymph % (Auto) (13.4-35.0) % [place] % (Auto) (0.0-7.3) % Lymph # (1.2-5.4) K/mm3 Seg Neutrophils % (40.0-70.0) % Chloride (98-107) mmol/L Glucose (75-100) mg/dL POC Glucose 207 H (70-105) Calcium (8.4-10.2) mg/dL Total Creatine Kinase (55-170) units/L Crossmatch See Detail 04/01/19 04/01/19 04/01/19 Range/Units 04:20 04:20 07:46 RBC 3.06 L (3.65-5.03) M/mm3 Hgb 10.2 L (11.8-15.2) gm/dl Hct 29.1 L (35.5-45.6) % MCV 95 H (84-94) fl MCH 33 H (28-32) pg MCHC 35 H (32-34) % RDW 15.3 H (13.2-15.2) % Lymph % (Auto) 13.1 L (13.4-35.0) % [place] % (Auto) 8.6 H (0.0-7.3) % Lymph # 1.0 L (1.2-5.4) K/mm3 Seg Neutrophils % 77.7 H (40.0-70.0) % Chloride 109.3 H (98-107) mmol/L Glucose 120 H (75-100) mg/dL POC Glucose 111 H (70-105) Calcium 8.0 L (8.4-10.2) mg/dL Total Creatine Kinase 38 L (55-170) units/L Crossmatch 04/01/19 Range/Units 11:40 RBC (3.65-5.03) M/mm3 Hgb (11.8-15.2) gm/dl Hct (35.5-45.6) % MCV (84-94) fl MCH (28-32) pg MCHC (32-34) % RDW (13.2-15.2) % Lymph % (Auto) (13.4-35.0) % [place] % (Auto) (0.0-7.3) % Lymph # (1.2-5.4) K/mm3 Seg Neutrophils % (40.0-70.0) % Chloride (98-107) mmol/L Glucose (75-100) mg/dL POC Glucose 167 H (70-105) Calcium (8.4-10.2) mg/dL Total Creatine Kinase (55-170) units/L Crossmatch
[2019-04-01] MEDS: DILAUDID IV PRN (22:45)
[2019-04-02] MEDS: DILAUDID IV PRN (04:54)
[2019-04-02] MEDS: LASIX PO SCH (05:00)
[2019-04-02] MEDS: HumaLOG SUB-Q SCH ×3 (08:44→16:55)
[2019-04-02] MEDS: ASPIRIN PO SCH (10:05)
[2019-04-02] MEDS: PLAVIX PO SCH (10:05)
[2019-04-02] MEDS: NORCO 5/325 PO PRN (10:05)
[2019-04-02] MEDS: ZESTRIL PO SCH (10:08)
[2019-04-02] MEDS: COREG PO SCH (10:08)
--- NOTE | 2019-04-02 10:08 | Progress Note ---
Assessment and Plan stable from a cv standpoint ok to d/c when ok from a vascular standpoint cont current meds including DAPT. - Patient Problems (1) Hematoma Current Visit: Yes Status: Acute (2) CAD (coronary artery disease) Current Visit: Yes Status: Chronic (3) Diabetes Current Visit: Yes Status: Chronic (4) HTN (hypertension) Current Visit: Yes Status: Chronic Qualifiers: Hypertension type: essential hypertension Qualified Code(s): I10 - Essential (primary) hypertension (5) Hx of CABG Current Visit: Yes Status: Chronic (6) Hyperlipidemia Current Visit: Yes Status: Chronic (7) PVD (peripheral vascular disease) Current Visit: Yes Status: Chronic (8) Stented coronary artery Current Visit: Yes Status: Chronic (9) Peripheral neuropathy Current Visit: No Status: Chronic Subjective Date of service: 04/02/19 Principal diagnosis: cardiac evaluation Interval history: feels better Objective Vital Signs Temp Pulse Pulse Resp BP Pulse Ox 04/02/19 08:49 96 04/02/19 08:40 98.6 F 76 18 151/56 98 04/02/19 03:47 98.3 F 68 18 148/63 95 04/01/19 23:40 98.3 F 64 20 138/53 93 04/01/19 22:41 66 149/55 04/01/19 21:30 97 04/01/19 19:34 67 04/01/19 19:18 98.7 F 77 18 149/55 96 04/01/19 16:51 98.0 F 63 18 130/57 95 04/01/19 16:31 55 L 13 138/54 98 04/01/19 16:15 58 L 13 138/54 97 04/01/19 16:00 98.6 F 57 L 17 138/54 96 04/01/19 15:45 56 L 13 138/45 96 04/01/19 15:31 56 L 12 138/45 97 04/01/19 15:15 56 L 12 138/45 95 04/01/19 15:00 58 L 14 138/45 95 04/01/19 14:45 64 13 136/38 96 04/01/19 14:31 63 13 136/38 97 04/01/19 14:15 77 15 136/38 97 04/01/19 14:01 78 14 121/42 97 04/01/19 13:45 77 26 H 121/42 96 04/01/19 13:31 61 16 121/42 97 04/01/19 13:15 68 13 121/42 97 04/01/19 13:01 62 14 121/42 97 04/01/19 12:45 67 14 127/62 89 04/01/19 12:31 67 14 97 04/01/19 12:15 65 13 127/62 97 04/01/19 12:01 70 20 127/62 99 04/01/19 12:00 98.6 F 70 16 04/01/19 11:45 57 L 10 L 137/61 99 04/01/19 11:31 58 L 12 137/61 99 04/01/19 11:15 56 L 14 137/61 99 04/01/19 11:00 57 L 12 137/61 98 04/01/19 10:45 60 10 L 132/55 98 04/01/19 10:31 64 13 132/55 98 04/01/19 10:15 71 13 132/55 98 - Physical Examination General: No Apparent Distress HEENT: Positive: PERRL, Normocephaly, Mucus Membranes Moist Neck: Positive: neck supple, trachea midline Neuro: Positive: Grossly Intact Incision: Cardiac Cath Site (left groin hematoma) Extremities: Absent: edema - Imaging and Cardiology EKG: report reviewed, image reviewed Cardiac cath: report reviewed - EKG Sinus rhythms and dysrhythmias: sinus rhythm
--- NOTE | 2019-04-02 11:27 | Progress Note ---
Assessment and Plan Groin Hematoma s/p PCI CAD (coronary artery disease) Stented coronary artery HTN (hypertension) Hyperlipidemia Diabetes PVD (peripheral vascular disease) - s/p angiogram with ballooning and stenting of left SFA - Continue to monitor clinically, monitor H&H - Status post PCI of SVG to RCA via left groin approach. - Continue to monitor BP and continue current meds - continue statin therapy - consistent carb diet - continue aspirin and Plavix and statin for PVD - continue other care per attending / other consultants ... re-evaluate in am & prn Subjective Date of service: 04/02/19 Principal diagnosis: Left Groin Hematoma s/p PCI; CAD; HTN; Hyperlipidemia; DM II; PVD Interval history: Patient is seen today for: Groin Hematoma s/p PCI; CAD (coronary artery disease); Stented coronary artery; HTN (hypertension); Hyperlipidemia; Diabetes type II; PVD (peripheral vascular disease) Seen and examined at bedside; 24 hour events reviewed; nursing and respiratory care staff consulted; No adverse overnight events reported to me; resting peacefully in bed; No N/V/F/C; no gross bleeding at left groin hematoma site and no acute limb dysfunction Objective Vital Signs - 12hr 04/01/19 04/02/19 04/02/19 23:40 03:47 08:40 Temperature 98.3 F 98.3 F 98.6 F Pulse Rate 64 68 76 Respiratory 20 18 18 Rate Blood Pressure 138/53 148/63 151/56 O2 Sat by Pulse 93 95 98 Oximetry 04/02/19 04/02/19 08:49 10:08 Temperature Pulse Rate 76 Respiratory Rate Blood Pressure 151/56 O2 Sat by Pulse 96 Oximetry Constitutional: no acute distress, other (elderly looking male, normocephalic with normal respiratory effort at rest) Eyes: non-icteric ENT: oropharynx moist Neck: supple, no lymphadenopathy, no JVD Effort: normal Ascultation: Bilateral: clear Percussion: Bilateral: not dull Cardiovascular: regular rate and rhythm Gastrointestinal: normoactive bowel sounds, soft, non-tender, non-distended Integumentary: other (left groin hematoma) Extremities: no cyanosis, no edema, pulses normal, no ischemia or petechiae Neurologic: normal mental status, non-focal exam, pupils equal and round, CN II- XII normal Psychiatric: mood appropriate, affect normal CBC and BMP: 04/02/19 12:59 04/01/19 04:20 ABG, PT/INR, D-dimer: PT/INR, D-dimer PT 13.8 Sec. (12.2-14.9) 03/31/19 06:40 INR 1.09 (0.87-1.13) 03/31/19 06:40 Abnormal lab findings: Abnormal Labs 03/31/19 03/31/19 03/31/19 06:40 06:40 10:02 RBC 3.49 L Hgb Hct 34.6 L MCV 99 H MCH 34 H MCHC RDW Lymph % (Auto) [place] % (Auto) 8.4 H Lymph # Seg Neutrophils % Activated Clotting Time 197 H Sodium 147 H Chloride 110.1 H Glucose 108 H POC Glucose Calcium Total Creatine Kinase Crossmatch 03/31/19 03/31/19 03/31/19 10:18 12:36 13:00 RBC Hgb Hct MCV MCH MCHC RDW Lymph % (Auto) [place] % (Auto) Lymph # Seg Neutrophils % Activated Clotting Time 224 H 186 H 169 H Sodium Chloride Glucose POC Glucose Calcium Total Creatine Kinase Crossmatch 03/31/19 03/31/19 03/31/19 14:18 14:18 20:46 RBC 2.63 L Hgb 9.1 L 9.9 L Hct 25.7 L D 28.7 L MCV 98 H MCH 35 H MCHC 35 H RDW Lymph % (Auto) [place] % (Auto) Lymph # Seg Neutrophils % Activated Clotting Time Sodium Chloride Glucose POC Glucose Calcium Total Creatine Kinase Crossmatch See Detail 03/31/19 04/01/19 04/01/19 21:21 04:20 04:20 RBC 3.06 L Hgb 10.2 L Hct 29.1 L MCV 95 H MCH 33 H MCHC 35 H RDW 15.3 H Lymph % (Auto) 13.1 L [place] % (Auto) 8.6 H Lymph # 1.0 L Seg Neutrophils % 77.7 H Activated Clotting Time Sodium Chloride 109.3 H Glucose 120 H POC Glucose 207 H Calcium 8.0 L Total Creatine Kinase 38 L Crossmatch 04/01/19 04/01/19 04/01/19 07:46 11:40 16:39 RBC Hgb Hct MCV MCH MCHC RDW Lymph % (Auto) [place] % (Auto) Lymph # Seg Neutrophils % Activated Clotting Time Sodium Chloride Glucose POC Glucose 111 H 167 H 141 H Calcium Total Creatine Kinase Crossmatch 04/01/19 04/02/19 21:50 08:45 RBC Hgb Hct MCV MCH MCHC RDW Lymph % (Auto) [place] % (Auto) Lymph # Seg Neutrophils % Activated Clotting Time Sodium Chloride Glucose POC Glucose 132 H 114 H Calcium Total Creatine Kinase Crossmatch Chest x-ray: image reviewed (no acute process; median sternotomy wires) Allied health notes reviewed: nursing
[2019-04-02 13:14] LABS: Hemoglobin 9.5 gm/dl (11.8-15.2)
--- NOTE | 2019-04-02 16:15 | Discharge Summary ---
Providers - Providers Date of Admission: 03/31/19 14:42 Date of discharge: 04/02/19 Attending physician: GAEL MEDINA 03/31/19 Consult to Cardiac Rehabilitation [CONS] Routine Reason For Exam: post pci 03/31/19 14:34 Consult to Physician [CONS] Stat Comment: Consulting Provider: [place] Physician Instructions: Reason For Exam: left groin hematoma s/p PCI 03/31/19 14:44 Consult to Physician [CONS] Routine Comment: Consulting Provider: FAY SHI Physician Instructions: Reason For Exam: CCU management s/p PCI and hematoma 04/01/19 10:42 Consult to Physician [CONS] Routine Comment: Consulting Provider: FAY SHI Physician Instructions: Reason For Exam: s/p heart catherization and stenting Primary care physician: JALYN BLEDSOE MD Hospitalization Pertinent studies: CXR Hospital course: The pt is a 68 YO male with a past medical history of CAD s/p CABG and multiple PCIs, PVD, HTN, HLP, DM, PAF. He is followed in our office by Dr. Adrianne Stubbs. Pt presented today for scheduled elective LHC and subsequently underwent PCI of SVG to RCA via left groin approach. He was clinically and hemodynamically stable throughout LHC and PCI. His left groin sheath was pulled and pt subsequently developed left groin hematoma. He was evaluated by Dr. All [place] and was taken back to chemistry laboratory technician where he underwent angiogram with ballooning and stenting of left SFA. He was admitted to CCU, status post 1 unit PRBC tx. he was monitored clinically, H&H remained stable. Next day downgraded to telemetry. Patient was then cleared for discharge by vascular and cardiology. He will to further follow-up as an outpatient. Discharge diagnosis: /The left groin hematoma following cardiac cath - s/p angiogram with ballooning and stenting of left SFA -Status post 1 unit packed RBC transfusion / CAD (coronary artery disease) with a history of CABG - Status post PCI of SVG to RCA via left groin approach. / HTN (hypertension), Continue current meds / Hyperlipidemia, continue statin / Diabetes, consistent carb diet and exercise / PVD (peripheral vascular disease), continue aspirin and Plavix and statin Hospitalist physical: GENERAL: well-developed and well-nourished white male lying on bed appeared to be in no discomfort. HEENT: Normocephalic. Atraumatic. No conjunctival congestion or icterus. Patient has moist mucous membranes. NECK: Supple. Trachea midline. CHEST/LUNGS: Clear to auscultated bilaterally, breathing nonlabored. No wheezes crackles or rhonchi. HEART/CARDIOVASCULAR: Regular in rate and rhythm. S1 and S2 positive. ABDOMEN: Abdomen is soft, nontender. Patient has normal bowel sounds. Left groin wound with wound dressing without any bleeding SKIN: There is no rash. Warm and dry. NEURO: No focal motor deficit. Follows command. MUSCULOSKELETAL: No joint effusion or tenderness. EXTRIMITY: No edema, no cyanosis or clubbing. PSYCH: Cooperative. Disposition: - TO HOME OR SELFCARE Time spent for discharge: 34 minutes Core Measure Documentation - Palliative Care Palliative Care/ Comfort Measures: Not Applicable - Core Measures Any of the following diagnoses?: none Exam - Constitutional Vitals: Temp Pulse Resp BP Pulse Ox 98.4 F 58 L 18 126/40 97 04/02/19 12:08 04/02/19 12:08 04/02/19 12:08 04/02/19 12:08 04/02/19 12:08 Plan Activity: advance as tolerated Weight Bearing Status: Weight Bear as Tolerated Diet: low fat, low salt Wound: per wound nurse instructions Follow up with: JALYN BLEDSOE MD [Primary Care Provider] - 7 Days SUNG GARCIA MD [Staff Physician] - 7 Days Prescriptions: HYDROcodone/APAP 5-325 [[place] 5/325] 1 each PO Q6HR PRN #10 tablet PRN Reason: Pain
[2019-04-02 16:50] VITALS: BP 135/50
== END 2019-04-02 18:00 | disposition home or self-care (01) | DRG 270 ==
LOC: CATHLABREC 06:05 → 4A 10:32 → OBSVTOIN 14:42 → 4A 14:42 → CC1 15:10 → 4A 04-01 17:35
PROVIDERS: ADMIT Internal Medicine; ATTEND Internal Medicine
PROC: 027034Z Dilation of Coronary Artery, One Artery with Drug-eluting Intraluminal Device, Percutaneous Approach (ICD-10-PCS; principal; 2019-03-31)
PROC: 04VL3DZ Restriction of Left Femoral Artery with Intraluminal Device, Percutaneous Approach (ICD-10-PCS; 2019-03-31)
PROC: 4A023N7 Measurement of Cardiac Sampling and Pressure, Left Heart, Percutaneous Approach (ICD-10-PCS; 2019-03-31)
PROC: B41GZZZ Fluoroscopy of Left Lower Extremity Arteries (ICD-10-PCS; 2019-03-31)
PROC: B2111ZZ Fluoroscopy of Multiple Coronary Arteries using Low Osmolar Contrast (ICD-10-PCS; 2019-03-31)
PROC: B2151ZZ Fluoroscopy of Left Heart using Low Osmolar Contrast (ICD-10-PCS; 2019-03-31)
PROC: B5171ZZ Fluoroscopy of Left Subclavian Vein using Low Osmolar Contrast (ICD-10-PCS; 2019-03-31)
PROC: B241ZZ3 Ultrasonography of Multiple Coronary Arteries, Intravascular (ICD-10-PCS; 2019-03-31)
PROC: B44LZZZ Ultrasonography of Femoral Artery (ICD-10-PCS; 2019-03-31)
PROC: 30233N1 Transfusion of Nonautologous Red Blood Cells into Peripheral Vein, Percutaneous Approach (ICD-10-PCS; 2019-03-31)
DX: I25.700 Atherosclerosis of coronary artery bypass graft(s), unspecified, with unstable angina pectoris (principal); I50.31 Acute diastolic (congestive) heart failure; I10 Essential (primary) hypertension; I48.0 Paroxysmal atrial fibrillation; E11.51 Type 2 diabetes mellitus with diabetic peripheral angiopathy without gangrene; E78.5 Hyperlipidemia, unspecified; E11.42 Type 2 diabetes mellitus with diabetic polyneuropathy; I48.91 Unspecified atrial fibrillation; E66.9 Obesity, unspecified; I95.9 Hypotension, unspecified; Z82.49 Family history of ischemic heart disease and other diseases of the circulatory system; Z79.82 Long term (current) use of aspirin; Z95.1 Presence of aortocoronary bypass graft; Z79.899 Other long term (current) drug therapy; Z68.37 Body mass index [BMI] 37.0-37.9, adult; Z95.5 Presence of coronary angioplasty implant and graft
CPT/HCPCS: 36415; 36430; 37226; 71045; 75710; 80048; 82550; 82553; 82962; 84484; 85014; 85018; 85025; 85347; 85610; 85730; 86850; 86900; 86901; 86920; 92937; 92978; 93005; 93010; 93459; 93571; 94760; G0378; A9270-GY; C1725; C1753; C1760; C1769; C1874; C1887; C1894; C9604; J0171; J0461; J1170; J1644; J1815; J2001; J2250; J2270; J2370; J2405; J3010; J7030; J7040; P9016; Q9967

== ENCOUNTER 2020-05-15 10:38 | Observation (INO) | payer MEDICARE, OTHER ==
--- NOTE | 2020-05-15 10:54 | Emergency Department Report ---
HPI - General Time Seen by Provider: 05/15/20 10:44 - HPI HPI: Room 1 The patient is a 69-year-old male present with a chief complaint of inability to speak. Per EMS the patient awakened this morning in his usual state of health and went to eat breakfast. EMS states the patient complained of abdominal pain and then collapsed and was unable to speak. The patient can make eye contact and attempts to follow commands but is unable to speak. The patient acknowledges he has pain in his chest but denies pain in his abdomen or head. ED Past Medical Hx - Past Medical History Hx Hypertension: Yes (1999) Hx Heart Attack/AMI: Yes (2002) Hx Congestive Heart Failure: Yes (2004) Hx Diabetes: Yes (Resolved after gastric bypass; diet controlled) - Surgical History Hx Coronary Stent: Yes (11/29/2004 x1) Hx Open Heart Surgery: Yes (3V 09/14/02) Hx Cholecystectomy: Yes (2007) - Family History Family history: no significant - Social History Smoking Status: Never Smoker Substance Use Type: None - Medications Home Medications: Home Medications Medication Instructions Recorded Confirmed Last Taken Type Aspirin [Adult Aspirin] 81 mg PO DAILY 03/31/19 03/31/19 03/30/19 History AtorvaSTATin [Lipitor] 20 mg PO DAILY 03/31/19 03/31/19 03/30/19 History Clopidogrel [Plavix] 75 mg PO QDAY 03/31/19 03/31/19 03/30/19 History Ferrous Sulfate [Slow Release Iron 54 mg PO DAILY 03/31/19 03/31/19 03/30/19 History 47.5 Mg tab] Furosemide [Lasix TAB] 40 mg PO DAILY 03/31/19 03/31/19 03/30/19 History Gabapentin [Neurontin] 600 mg PO TID 03/31/19 03/31/19 03/30/19 History Mv,Will,Min/Iron/Folic Acid/Lut 1 each PO DAILY 03/31/19 03/31/19 03/30/19 History [Complete Multi Tablet] Nitroglycerin [Nitrostat] 0.4 mg SL Q5M PRN 03/31/19 03/31/19 3 Months Ago History ~12/29/18 carvediloL [Coreg] 6.25 mg PO BID 03/31/19 03/31/19 03/30/19 History lisinopriL [Zestril TAB] 40 mg PO DAILY 03/31/19 03/31/19 03/30/19 History HYDROcodone/APAP 5-325 [[place] 1 each PO Q6HR PRN #10 tablet 04/02/19 Unknown Rx 5/325] ED Review of Systems ROS: Stated complaint: STROKE Other details as noted in HPI Comment: Unobtainable due to pts medical conditions Physical Exam - Physical Exam Physical Exam: GENERAL: The patient is well-developed well-nourished male lying on stretcher appearing lethargic. Patient makes eye contact but is unable to speak. [] HEENT: Normocephalic. Atraumatic. Extraocular motions are intact. Patient has moist mucous membranes. NECK: Supple. Trachea midline CHEST/LUNGS: Clear to auscultation. There is no respiratory distress noted. HEART/CARDIOVASCULAR: Regular. There is bradycardia. There is no gallop rub or murmur. ABDOMEN: Abdomen is soft, nontender. Patient has normal bowel sounds. There is no abdominal distention. SKIN: There is no rash. There is no edema. There is no diaphoresis. NEURO: The patient is awake but appears lethargic. Patient attempts to move his mouth to form words but does not speak. Patient follows commands. MUSCULOSKELETAL: There is no evidence of acute injury. ED Medical Decision Making - Lab Data Result diagrams: 05/15/20 10:49 05/15/20 10:49 Laboratory Tests 05/15/20 05/15/20 05/15/20 10:49 10:49 10:49 WBC 5.9 RBC 3.67 Hgb 12.3 Hct 35.5 MCV 97 H MCH 34 H MCHC 35 H RDW 13.2 Plt Count 171 Lymph % (Auto) 26.0 [place] % (Auto) 7.8 H Eos % (Auto) 2.0 Baso % (Auto) 1.7 Lymph # (Auto) 1.5 [place] # (Auto) 0.5 Eos # (Auto) 0.1 Baso # (Auto) 0.1 Seg Neutrophils % 62.5 Seg Neutrophils # 3.7 PT INR APTT Thrombin Time Sodium 137 Potassium 3.8 Chloride 103.4 Carbon Dioxide 29 Anion Gap 8 BUN 17 Creatinine 0.7 L Estimated GFR > 60 BUN/Creatinine Ratio 24 Glucose 135 H POC Glucose Calcium 8.6 Magnesium 2.00 Total Bilirubin 0.70 AST 17 ALT 11 Alkaline Phosphatase 106 Total Creatine Kinase 41 L CK-MB (CK-2) 1.5 CK-MB (CK-2) Rel Index 3.6 Troponin T < 0.010 Total Protein 6.1 L Albumin 3.3 L Albumin/Globulin Ratio 1.2 Lipase 19 TSH 11.250 H Free T4 0.96 Digoxin Blood Type Antibody Screen 05/15/20 05/15/20 05/15/20 10:49 10:49 10:50 WBC RBC Hgb Hct MCV MCH MCHC RDW Plt Count Lymph % (Auto) [place] % (Auto) Eos % (Auto) Baso % (Auto) Lymph # (Auto) [place] # (Auto) Eos # (Auto) Baso # (Auto) Seg Neutrophils % Seg Neutrophils # PT 13.6 INR 1.02 APTT 23.5 L Thrombin Time 14.6 L Sodium Potassium Chloride Carbon Dioxide Anion Gap BUN Creatinine Estimated GFR BUN/Creatinine Ratio Glucose POC Glucose Calcium Magnesium Total Bilirubin AST ALT Alkaline Phosphatase Total Creatine Kinase CK-MB (CK-2) CK-MB (CK-2) Rel Index Troponin T Total Protein Albumin Albumin/Globulin Ratio Lipase TSH Free T4 Digoxin 0.3 L Blood Type A NEGATIVE Antibody Screen Negative 05/15/20 10:59 WBC RBC Hgb Hct MCV MCH MCHC RDW Plt Count Lymph % (Auto) [place] % (Auto) Eos % (Auto) Baso % (Auto) Lymph # (Auto) [place] # (Auto) Eos # (Auto) Baso # (Auto) Seg Neutrophils % Seg Neutrophils # PT INR APTT Thrombin Time Sodium Potassium Chloride Carbon Dioxide Anion Gap BUN Creatinine Estimated GFR BUN/Creatinine Ratio Glucose POC Glucose 143 H Calcium Magnesium Total Bilirubin AST ALT Alkaline Phosphatase Total Creatine Kinase CK-MB (CK-2) CK-MB (CK-2) Rel Index Troponin T Total Protein Albumin Albumin/Globulin Ratio Lipase TSH Free T4 Digoxin Blood Type Antibody Screen - EKG Data -: EKG Interpreted by Me EKG shows normal: sinus rhythm Rate: bradycardia (48 bpm) - EKG Data When compared to previous EKG there are: previous EKG unavailable Interpretation: nonspecific ST-T wave michael - Radiology Data Radiology results: report reviewed (Chest x-ray, CT head, CT chest), image reviewed (Chest x-ray, CT head, CT chest) interpreted by me: Chest [id number], no pneumothorax, no focal infiltrates [address] [address] XRay Report Signed Patient: MARCO ANTONIO STODDARD JR, JR MR#: [id number] : 0 1950 Acct:[id number] Age/Sex: 69 / M ADM Date: 05/15/20 Loc: ED Attending Dr: Ordering Physician: CT STEWART MD Date of Service: 05/15/20 Procedure(s): XR chest 1V ap Accession Number(s): [id number] cc: CT STEWART MD Fluoro Time In Minutes: CHEST 1 VIEW, 05/15/2020 11:02 AM CLINICAL INFORMATION/INDICATION: Chest pain COMPARISON: Chest radiograph, 04/01/2019 FINDINGS: SUPPORT DEVICES: None. H EART: There is stable mild enlargement of the cardiac silhouette. LUNGS/PLEURA: No focal airspace consolidation or significant pleural effusion is visualized. ADDITIONAL FINDINGS: No additional acute findings. IMPRESSION: 1. Stable mild enlargement of the cardiac silhouette. Signer Name: Elise Purdy MD Signed: 05/15/2020 11:30 AM Workstation Name: [id number] Transcribed By: EB Dictated By: Elise Purdy MD Electronically Authenticated By: Elise Purdy MD Signed Date/Time: 05/15/20 1130 DD/ 1129 TD/TT: [address] [address] Cat Scan Report Signed Patient: MARCO ANTONIO STODDARD JR, JR MR#: [id number] : 1950 Acct:[id number] Age/Sex: 69 / M ADM Date: 05/15/20 Loc: ED Attendyani mendosa Dr: Ordering Physician: CT STEWART MD Date of Service: 05/15/20 Procedure(s): CT angio chest Accession Number(s): [id number] cc: CT STEWART MD CTA CHEST WITH IV CONTRAST INDICATION: Chest pain. TECHNIQUE: Axial CT images were obtained through the chest after injection of IV contrast. Coronal oblique 2-D reconstruction images were produced. 3 plane MIP reconstruction images were produced at an independent workstation. All CTs at this facility utilize dose reduction techniques including automated exposure control, iterative reconstruction and weight based dosing when appropriate to reduce patient radiation dose to as low as reasonable achievable. COMPARISON: Chest radiograph, 05/15/2020 FINDINGS: No filling defects are visualized within the central or segmental pulmonary arteries to suggest pulmonary embolism. The heart is mildly enlarged. The thoracic aorta appears normal in course and caliber. Evaluation of the lung parenchyma demonstrates mild bilateral nonspecific interstitial thic kening. There is no airspace consolidation or pleural effusion. A small hiatal hernia is noted. Limited imaging of the upper abdomen demonstrates no evidence of acute abnormality.. Bones and soft tissues: Evaluation of bony structures demonstrates no evidence of destructive bony abnormality. Evaluation of soft tissue structures demonstrates no evidence of acute soft tissue abnormality. IMPRESSION: 1. No evidence for pulmonary embolism. 2. Mild cardiomegaly. 3. Mild bilateral interstitial thickening. This is a nonspecific finding but may suggest mild pulmonary edema. 4. Small hiatal hernia. Signer Name: Elise Purdy MD Signed: 05/15/2020 12:14 PM Workstation Name: [id number] Transcribed By: EB Dictated By: Elise Purdy MD Electronically Authenticated By: Elise Purdy MD Signed Date/Time: 05/15/20 1214 DD/ 1209 TD/TT: [facility] [address] [place] [address] Cat Scan Report Signed Patient: MARCO ANTONIO STODDARD JR, JR MR#: [id number] : 1950 Acct:[id number] Age/Sex: 69 / M ADM Date: 05/15/20 Loc: ED Attending Dr: Ordering Physician: CT STEWART MD Date of Service: 05/15/20 Procedure(s): CT head/brain wo con Accession Number(s): [id number] cc: CT STEWART MD CT head/brain wo con INDICATION / CLINICAL INFORMATION: 69 years Male; Unable to speak, altered mental status. TECHNIQUE: Routine CT head without contrast. All CT scans at this location are performed using CT dose reduction for ALARA by means of automated exposure control. COMPARISON: None. FINDINGS: BRAIN / INTRACRANIAL CONTENTS: The motion degrades the image quality. However, this mild cerebral white matter disease most consistent with microvascular angiopathy. There is a 6 mm focus of decreased attenuation involving the anterior right periventricular white matter which most likely reflects old small infarct though correlation would be needed in this "code stroke" patient. There is no CT evidence of acute intracranial hemorrhage or significant mass effect. There is mild cerebral atrophy. The ventricular system is correspondingly appropriate in size and configuration. ORBITS: The findings are compatible with previous injection within the right optic globe. Visualized orbits are otherwise grossly unremarkable. SINUSES / MASTOIDS: There is minimal mucosal thickening within the left maxillary sinus. CRANIOCERVICAL JUNCTION: No significant abnormality. ADDITIONAL FINDINGS: None. IMPRESSION: 1. 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 The study was specified as code stroke and called emergently to Dr. Stewart in the ER at 10:17 AM Central standard time. Signer Name: John Paul MD Signed: 05/15/2020 11:20 AM Workstation Name: [id number] Transcribed By: MR Dictated By: John Paul MD Electronically Authenticated By: John Paul MD Signed Date/Time: 05/15/20 1120 DD/ 1112 TD/TT: - Differential Diagnosis CVA, ACS, Critical care attestation.: If time is entered above; I have spent that time in minutes in the direct care of this critically ill patient, excluding procedure time. ED Disposition Clinical Impression: Chest pain, Syncope, Encephalopathy, Generalized weakness Disposition: -09 OP ADMIT IP TO THIS HOSP Is pt being admited?: Yes Does the pt Need Aspirin: Yes Condition: Fair Instructions: Chest Pain (ED), Syncope (ED) Time of Disposition: 12:40 (Hospitalist paged (Dr. Berry))
[2020-05-15 11:06] LABS: Basophils # (Auto) 0.1 K/mm3 (0.0-0.1); Basophils % (Auto) 1.7 % (0.0-1.8); Eosinophils # (Auto) 0.1 K/mm3 (0.0-0.4); Hematocrit 35.5 % (35.5-45.6); Hemoglobin 12.3 gm/dl (11.8-15.2); Lymphocytes # (Auto) 1.5 K/mm3 (1.2-5.4); Mean Corpuscular HGB Conc 35 % (32-34); Mean Corpuscular Volume 97 fl (84-94); Monocytes # (Auto) 0.5 K/mm3 (0.0-0.8); Monocytes % (Auto) 7.8 % (0.0-7.3); Platelet Count 171 K/mm3 (140-440); Red Blood Count 3.67 M/mm3 (3.65-5.03); Red Cell Distribution Width 13.2 % (13.2-15.2)
[2020-05-15 11:14] LABS: INR 1.02 (0.87-1.13); Partial Thromboplastin Time 23.5 Sec. (24.2-36.6); Thrombin Time 14.6 Sec. (15.1-19.6)
[2020-05-15] MEDS ORDERED: ONDANSETRON 4 MG/2 ML INJ IV ONE ×2 (11:14→12:39)
[2020-05-15] MEDS ORDERED: ONDANSETRON 4 MG/2 ML INJ ONE (11:16)
[2020-05-15 11:23] LABS: Creatine Kinase MB 1.5 ng/mL (0.0-4.0)
--- NOTE | 2020-05-15 11:24 | Cat Scan Report ---
CT head/brain wo con INDICATION / CLINICAL INFORMATION: 69 years Male; Unable to speak, altered mental status. TECHNIQUE: Routine CT head without contrast. All CT scans at this location are performed using CT dos e reduction for ALARA by means of automated exposure control. COMPARISON: None. FINDINGS: BRAIN / INTRACRANIAL CONTENTS: The motion degrades the image quality. However, this mild cerebral whi te matter disease most consistent with microvascular angiopathy. There is a 6 mm focus of decreased a ttenuation involving the anterior right periventricular white matter which most likely reflects old [place] infarct though correlation would be needed in this "code stroke" patient. There is no CT evidenc e of acute intracranial hemorrhage or significant mass effect. There is mild cerebral atrophy. The ventricular system is correspondingly appropriate in size and con figuration. ORBITS: The findings are compatible with previous injection within the right optic globe. Visualized orbits are otherwise grossly unremarkable. SINUSES / MASTOIDS: There is minimal mucosal thickening within the left maxillary sinus. CRANIOCERVICAL JUNCTION: No significant abnormality. ADDITIONAL FINDINGS: None. IMPRESSION: 1. 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 The study was specified as code stroke and called emergently to Dr. Benz in the ER at 10:17 AM Cent[facility] standard time. Signer Name: John Paul MD Signed: 05/15/2020 11:20 AM Workstation Name: [id number]
[2020-05-15 11:27] LABS: Alanine Aminotransferase 11 units/L (7-56); Albumin 3.3 g/dL (3.9-5); BUN/Creatinine Ratio 24; Blood Urea Nitrogen 17 mg/dL (9-20); Calcium 8.6 mg/dL (8.4-10.2); Hemolysis Index 21
--- NOTE | 2020-05-15 11:34 | Emergency Department Report ---
ED Neuro Deficit HPI - General Chief Complaint: Neuro Symptoms/Deficit Stated Complaint: STROKE Time Seen by Provider: 05/15/20 10:44 Source: patient, family, EMS Mode of arrival: Stretcher Limitations: Other - History of Present Illness Initial Comments: [facility] Date of Service: 05/15/2020 10:44:48 Impression: Chest pain, syncope followed by diminished responsiveness. On exam, he does not demonstrate true aphasia and has no focal deficits, although seems lethargic and diffusely weak. Consider aortic dissection or acute coronary syndrome. Comments: I would not recommend thrombolytic therapy with alteplase in this case as I cannot demonstrate clear focal deficits on exam. Furthermore, would recommend excluding aortic dissection. Metrics: Last Known Well: 05/15/2020 10:00:00 [employer] Notification Time: 05/15/2020 10:43:55 Arrival Time: 05/15/2020 10:44:00 Stamp Time: 05/15/2020 10:44:48 Time First Login Attempt: 05/15/2020 10:47:18 Video Start Time: 05/15/2020 10:47:18 Symptoms: diminished responsiveness NIHSS Start Assessment Time: 05/15/2020 10:50:16 Patient is not a candidate for Alteplase/Activase. Patient was not deemed candidate for Alteplase/Activase thrombolytics because of no clear focal deficits. Video End Time: 05/15/2020 11:13:00 CT head showed no acute hemorrhage or acute core infarct. Clinical Presentation is not Suggestive of Large Vessel Occlusive Disease ED Physician notified of diagnostic impression and management plan on 05/15/2020 11:13:03 Our recommendations are outlined below. Recommendations: -Give ASA -STAT CTA chest r/o aortic dissection. Also r/o ACS. -Labs to r/o toxic, metabolic or infectious disturbances. -Brain MRI to r/o cerebral ischemia. Sign Out: Discussed with Emergency Department Provider who was in agreement. History of Present Illness: Patient was brought by EMS for symptoms of diminished responsiveness. H/o obesity s/p gastric bypass, DM2, HTN, CAD. Patient was in normal state of health upon awakening. Then at breakfast he suddenly complained of severe abdominal/chest pain and collapsed. He was then less interactive and not spe aking. EMS was called. He is able to speak now. He appears lethargic, also c/o chest pain. Past Medical History: Hypertension Diabetes Mellitus Coronary Artery Disease Imaging: Head CT negative for acute pathology. Examination: BP(119/55), Pulse(52), Blood Glucose(143) 1A: Level of Consciousness - Arouses to minor stimulation + 1 1B: Ask Month and Age - Both Questions Right + 0 1C: Blink Eyes & Squeeze Hands - Performs Both Tasks + 0 2: Test Horizontal Extraocular Movements - Normal + 0 3: Test Visual Xiong - No Visual Loss + 0 4: Test Facial Palsy (Use Grimace if Obtunded) - Minor paralysis (flat nasolabial fold, smile asymmetry) + 1 5A: Test Left Arm Motor Drift - Some Effort Against [place] + 2 5B: Test Right Arm Motor Drift - Some Effort Against [place] + 2 6A: Test Left Leg Motor Drift - No Effort Against [place] + 3 6B: Test Right Leg Motor Drift - No Effort Against [place] + 3 7: Test Limb Ataxia (FNF/Heel-Hoffman) - No Ataxia + 0 8: Test Sensation - Normal; No sensory loss + 0 9: Test Language/Aphasia - Normal; No aphasia + 0 10: Test Dysarthria - Mild-Moderate Dysarthria: Slurring but can be understood + 1 11: Test Extinction/Inattention - No abnormality + 0 NIHSS Score: 13 Patient/Family was informed the Neurology Consult would happen via TeleHealth consult by way of interactive audio and video telecommunications and consented to receiving care in this manner. Due to the immediate potential for life-threatening deterioration due to underlying acute neurologic illness, I spent 35 minutes providing critical care. This time includes time for face to face visit via telemedicine, review of medical records, imaging studies and discussion of findings with providers, the patient and/or family. Dr John Carroll [employer] Case [id number] - Related Data Home Medications: Home Medications Medication Instructions Recorded Confirmed Last Taken Aspirin [Adult Aspirin] 81 mg PO DAILY 03/31/19 03/31/19 03/30/19 AtorvaSTATin [Lipitor] 20 mg PO DAILY 03/31/19 03/31/19 03/30/19 Clopidogrel [Plavix] 75 mg PO QDAY 03/31/19 03/31/19 03/30/19 Ferrous Sulfate [Slow Release Iron 54 mg PO DAILY 03/31/19 03/31/19 03/30/19 47.5 Mg tab] Furosemide [Lasix TAB] 40 mg PO DAILY 03/31/19 03/31/19 03/30/19 Gabapentin [Neurontin] 600 mg PO TID 03/31/19 03/31/19 03/30/19 Mv,Will,Min/Iron/Folic Acid/Lut 1 each PO DAILY 03/31/19 03/31/19 03/30/19 [Complete Multi Tablet] Nitroglycerin [Nitrostat] 0.4 mg SL Q5M PRN 03/31/19 03/31/19 3 Months Ago ~12/29/18 carvediloL [Coreg] 6.25 mg PO BID 03/31/19 03/31/19 03/30/19 lisinopriL [Zestril TAB] 40 mg PO DAILY 03/31/19 03/31/19 03/30/19 Previous Rx's Medication Instructions Recorded Last Taken Type HYDROcodone/APAP 5-325 [[place] 1 each PO Q6HR PRN #10 tablet 04/02/19 Unknown Rx 5/325] Allergies/Adverse Reactions: Allergies Allergy/AdvReac Type Severity Reaction Status Date / Time No Known Allergies Allergy Unverified 03/16/14 06:50 ED Review of Systems ROS: Stated complaint: STROKE Other details as noted in HPI ED Past Medical Hx - Past Medical History Previous Medical History?: Yes Hx Hypertension: Yes (1999) Hx Heart Attack/AMI: Yes (2002) Hx Congestive Heart Failure: Yes (2004) Hx Diabetes: Yes (Resolved after gastric bypass; diet controlled) - Surgical History Past Surgical History?: Yes Hx Coronary Stent: Yes (11/29/2004 x1) Hx Open Heart Surgery: Yes (3V 09/14/02) Hx Cholecystectomy: Yes (2007) - Social History Smoking Status: Never Smoker Substance Use Type: None - Medications Home Medications: Home Medications Medication Instructions Recorded Confirmed Last Taken Type Aspirin [Adult Aspirin] 81 mg PO DAILY 03/31/19 03/31/19 03/30/19 History AtorvaSTATin [Lipitor] 20 mg PO DAILY 03/31/19 03/31/19 03/30/19 History Clopidogrel [Plavix] 75 mg PO QDAY 03/31/19 03/31/19 03/30/19 History Ferrous Sulfate [Slow Release Iron 54 mg PO DAILY 03/31/19 03/31/19 03/30/19 History 47.5 Mg tab] Furosemide [Lasix TAB] 40 mg PO DAILY 03/31/19 03/31/19 03/30/19 History Gabapentin [Neurontin] 600 mg PO TID 03/31/19 03/31/19 03/30/19 History Mv,Will,Min/Iron/Folic Acid/Lut 1 each PO DAILY 03/31/19 03/31/19 03/30/19 History [Complete Multi Tablet] Nitroglycerin [Nitrostat] 0.4 mg SL Q5M PRN 03/31/19 03/31/19 3 Months Ago History ~12/29/18 carvediloL [Coreg] 6.25 mg PO BID 03/31/19 03/31/19 03/30/19 History lisinopriL [Zestril TAB] 40 mg PO DAILY 03/31/19 03/31/19 03/30/19 History HYDROcodone/APAP 5-325 [[place] 1 each PO Q6HR PRN #10 tablet 04/02/19 Unknown Rx 5/325] ED Neuro Physical Exam - General Limitations: Other Suspected Stroke: No ED Course Vital Signs 05/15/20 10:38 Pulse Rate 52 L Respiratory 14 Rate Blood Pressure 119/55 O2 Sat by Pulse 94 Oximetry - Lab Data Result diagrams: 05/15/20 10:49 05/15/20 10:49 Lab Results 05/15/20 05/15/20 05/15/20 Range/Units 10:49 10:49 10:49 WBC 5.9 (4.5-11.0) K/mm3 RBC 3.67 (3.65-5.03) M/mm3 Hgb 12.3 (11.8-15.2) gm/dl Hct 35.5 (35.5-45.6) % MCV 97 H (84-94) fl MCH 34 H (28-32) pg MCHC 35 H (32-34) % RDW 13.2 (13.2-15.2) % Plt Count 171 (140-440) K/mm3 Lymph % (Auto) 26.0 (13.4-35.0) % [place] % (Auto) 7.8 H (0.0-7.3) % Eos % (Auto) 2.0 (0.0-4.3) % Baso % (Auto) 1.7 (0.0-1.8) % Lymph # (Auto) 1.5 (1.2-5.4) K/mm3 [place] # (Auto) 0.5 (0.0-0.8) K/mm3 Eos # (Auto) 0.1 (0.0-0.4) K/mm3 Baso # (Auto) 0.1 (0.0-0.1) K/mm3 Seg Neutrophils % 62.5 (40.0-70.0) % Seg Neutrophils # 3.7 (1.8-7.7) K/mm3 PT (12.2-14.9) Sec. INR (0.87-1.13) APTT (24.2-36.6) Sec. Thrombin Time (15.1-19.6) Sec. Sodium 137 (137-145) mmol/L Potassium 3.8 (3.6-5.0) mmol/L Chloride 103.4 (98-107) mmol/L Carbon Dioxide 29 (22-30) mmol/L Anion Gap 8 mmol/L BUN 17 (9-20) mg/dL Creatinine 0.7 L (0.8-1.3) mg/dL Estimated GFR > 60 ml/min BUN/Creatinine Ratio 24 % Glucose 135 H (75-100) mg/dL POC Glucose (70-105) Calcium 8.6 (8.4-10.2) mg/dL Magnesium 2.00 (1.7-2.3) mg/dL Total Bilirubin 0.70 (0.1-1.2) mg/dL AST 17 (5-40) units/L ALT 11 (7-56) units/L Alkaline Phosphatase 106 (35-129) units/L Total Creatine Kinase 41 L (55-170) units/L CK-MB (CK-2) 1.5 (0.0-4.0) ng/mL CK-MB (CK-2) Rel Index 3.6 (0-4) Troponin T < 0.010 (0.00-0.029) ng/mL Total Protein 6.1 L (6.3-8.2) g/dL Albumin 3.3 L (3.9-5) g/dL Albumin/Globulin Ratio 1.2 % Lipase 19 (13-60) units/L Blood Type A NEGATIVE 05/15/20 05/15/20 Range/Units 10:50 10:59 WBC (4.5-11.0) K/mm3 RBC (3.65-5.03) M/mm3 Hgb (11.8-15.2) gm/dl Hct (35.5-45.6) % MCV (84-94) fl MCH (28-32) pg MCHC (32-34) % RDW (13.2-15.2) % Plt Count (140-440) K/mm3 Lymph % (Auto) (13.4-35.0) % [place] % (Auto) (0.0-7.3) % Eos % (Auto) (0.0-4.3) % Baso % (Auto) (0.0-1.8) % Lymph # (Auto) (1.2-5.4) K/mm3 [place] # (Auto) (0.0-0.8) K/mm3 Eos # (Auto) (0.0-0.4) K/mm3 Baso # (Auto) (0.0-0.1) K/mm3 Seg Neutrophils % (40.0-70.0) % Seg Neutrophils # (1.8-7.7) K/mm3 PT 13.6 (12.2-14.9) Sec. INR 1.02 (0.87-1.13) APTT 23.5 L (24.2-36.6) Sec. Thrombin Time 14.6 L (15.1-19.6) Sec. Sodium (137-145) mmol/L Potassium (3.6-5.0) mmol/L Chloride (98-107) mmol/L Carbon Dioxide (22-30) mmol/L Anion Gap mmol/L BUN (9-20) mg/dL Creatinine (0.8-1.3) mg/dL Estimated GFR ml/min BUN/Creatinine Ratio % Glucose (75-100) mg/dL POC Glucose 143 H (70-105) Calcium (8.4-10.2) mg/dL Magnesium (1.7-2.3) mg/dL Total Bilirubin (0.1-1.2) mg/dL AST (5-40) units/L ALT (7-56) units/L Alkaline Phosphatase (35-129) units/L Total Creatine Kinase (55-170) units/L CK-MB (CK-2) (0.0-4.0) ng/mL CK-MB (CK-2) Rel Index (0-4) Troponin T (0.00-0.029) ng/mL Total Protein (6.3-8.2) g/dL Albumin (3.9-5) g/dL Albumin/Globulin Ratio % Lipase (13-60) units/L Blood Type Critical care attestation.: If time is entered above; I have spent that time in minutes in the direct care of this critically ill patient, excluding procedure time. ED Disposition Clinical Impression: Chest pain, Syncope, Encephalopathy, Generalized weakness Disposition: 09 OP ADMIT IP TO THIS HOSP Is pt being admited?: Yes Condition: Stable Instructions: Chest Pain (ED), Syncope (ED)
--- NOTE | 2020-05-15 11:35 | XRay Report ---
CHEST 1 VIEW, 05/15/2020 11:02 AM CLINICAL INFORMATION/INDICATION: Chest pain COMPARISON: Chest radiograph, 04/01/2019 FINDINGS: SUPPORT DEVICES: None. HEART: There is stable mild enlargement of the cardiac silhouette. LUNGS/PLEURA: No focal airspace consolidation or significant pleural effusion is visualized. ADDITIONAL FINDINGS: No additional acute findings. IMPRESSION: 1. Stable mild enlargement of the cardiac silhouette. Signer Name: Elise Purdy MD Signed: 05/15/2020 11:30 AM Workstation Name: [id number]
[2020-05-15 11:37] LABS: Free T4 (Free Thyroxine) 0.96 ng/dL (0.76-1.46)
--- NOTE | 2020-05-15 12:18 | Cat Scan Report ---
CTA CHEST WITH IV CONTRAST INDICATION: Chest pain. TECHNIQUE: Axial CT images were obtained through the chest after injection of IV contrast. Coronal oblique 2-D reconstruction images were produced. 3 plane MIP reconstruction images were produced at an [employer] workstation. All CTs at this facility utilize dose reduction techniques including automated expos ure control, iterative reconstruction and weight based dosing when appropriate to reduce patient radi ation dose to as low as reasonable achievable. COMPARISON: Chest radiograph, 05/15/2020 FINDINGS: No filling defects are visualized within the central or segmental pulmonary arteries to suggest pulmo nary embolism. The heart is mildly enlarged. The thoracic aorta appears normal in course and caliber. Evaluation of the lung parenchyma demonstrates mild bilateral nonspecific interstitial thickening. Th ere is no airspace consolidation or pleural effusion. A small hiatal hernia is noted. Limited imaging of the upper abdomen demonstrates no evidence of acute abnormality.. Bones and soft tissues: Evaluation of bony structures demonstrates no evidence of destructive bony ab normality. Evaluation of soft tissue structures demonstrates no evidence of acute soft tissue abnorma lity. IMPRESSION: 1. No evidence for pulmonary embolism. 2. Mild cardiomegaly. 3. Mild bilateral interstitial thickening. This is a nonspecific finding but may suggest mild pulmona ry edema. 4. Small hiatal hernia. Signer Name: Elise Purdy MD Signed: 05/15/2020 12:14 PM Workstation Name: [id number]
[2020-05-15] MEDS ORDERED: ASPIRIN 325 MG TAB PO ONE (12:39)
[2020-05-15] MEDS ORDERED: fentaNYL 100 MCG/2 ML INJ IV ONE (12:39)
[2020-05-15] MEDS ORDERED: ALBUTEROL 2.5 MG/3 ML NEBU IH PRN (13:20)
[2020-05-15] MEDS ORDERED: ACETAMINOPHEN 325 MG TAB PO PRN (13:20)
[2020-05-15] MEDS ORDERED: ONDANSETRON 4 MG/2 ML INJ IV PRN (13:20)
--- NOTE | 2020-05-15 13:24 | History and Physical Report ---
History of Present Illness Chief complaint: I just collapsed today History of present illness: 69 YO Male with HTN, IN, CHF, CAD S/P CABG, Obesity Hypoventilation Syndrome, HLD presents to ED for evaluation. Patient states that he was in his usual state of health and was ambulating to the kitchen to eat breakfast. Patient states that he experienced sudden onset of nausea followed by a near loss of consciousness. Patient reportedly went down to his knees without falling to the ground or losing consciousness. EMS was notified and upon arrival the patient was found to be in distress and subsequently transported to [facility] for further evaluation and care. Patient seen and evaluated in the emergency department. L ab and imaging studies reviewed. Patient found to have symptomatic bradycardia with heart rate in the 40s, as well as systems consistent with diastolic congestive heart failure. Patient admitted to telemetry. Cardiology team consulted in ED. Patient denies fever, chills, chest pain, palpitation, productive cough, skin rash, recent ill contacts, or known exposure to COVID-19. Prior admission on 03/31/2019 reviewed. All medication listed at time of admission has been reconciled. Advanced care planning conducted in ED. Past History Past Medical History: acute IN, heart failure, hypertension, hyperlipidemia, other (See HPI) Past Surgical History: cholecystectomy, CABG, Other (Cardiac stent placement) Social history: , lives with family Family history: hypertension Medications and Allergies Allergies Allergy/AdvReac Type Severity Reaction Status Date / Time No Known Allergies Allergy Unverified 03/16/14 06:50 Home Medications Medication Instructions Recorded Confirmed Last Taken Type Aspirin [Adult Aspirin] 81 mg PO DAILY 03/31/19 05/15/20 05/15/20 History AtorvaSTATin [Lipitor] 20 mg PO DAILY 03/31/19 05/15/20 05/15/20 History Clopidogrel [Plavix] 75 mg PO QDAY 03/31/19 05/15/20 05/15/20 History Ferrous Sulfate [Slow Release Iron 54 mg PO DAILY 03/31/19 05/15/20 05/15/20 History 47.5 Mg tab] Furosemide [Lasix TAB] 40 mg PO DAILY 03/31/19 05/15/20 03/30/19 History Gabapentin [Neurontin] 600 mg PO TID 03/31/19 05/15/20 05/15/20 History Mv,Will,Min/Iron/Folic Acid/Lut 1 each PO DAILY 03/31/19 05/15/20 05/15/20 History [Complete Multi Tablet] Nitroglycerin [Nitrostat] 0.4 mg SL Q5M PRN 03/31/19 05/15/20 3 Months Ago History ~12/29/18 carvediloL [Coreg] 6.25 mg PO BID 03/31/19 05/15/20 05/15/20 History lisinopriL [Zestril TAB] 40 mg PO DAILY 03/31/19 05/15/20 05/15/20 History Active Meds: Active Medications Acetaminophen (Tylenol) 650 mg PO Q4H PRN PRN Reason: Pain MILD(1-3)/Fever >100.5/VEGA Albuterol (Proventil) 2.5 mg IH Q4HRT PRN PRN Reason: Shortness Of Breath Ondansetron HCl (Zofran) 4 mg IV Q8H PRN PRN Reason: Nausea And Vomiting Sodium Chloride (Sodium Chloride Flush Syringe 10 Ml) 10 ml IV BID MATIAS Sodium Chloride (Sodium Chloride Flush Syringe 10 Ml) 10 ml IV PRN PRN PRN Reason: LINE FLUSH Review of Systems Constitutional: weakness, no weight loss, no weight gain, no fever, no chills Ears, nose, mouth and throat: no ear pain, no ear discharge, no tinnitis, no nose pain, no nasal discharge Cardiovascular: other (Near collapse), no chest pain, no orthopnea Respiratory: no cough, no cough with sputum, no shortness of breath Gastrointestinal: nausea, no vomiting, no constipation, no change in bowel habits Genitourinary Male: no hematuria, no flank pain, no discharge Rectal: no pain, no bleeding Musculoskeletal: no shooting arm pain, no shooting leg pain Integumentary: no pruritis, no jaundice Neurological: no transient paralysis, no parathesias, no numbness, no seizures, no tremors Psychiatric: no anxiety, no memory loss, no sleep disturbances, no insomnia, no hypersomnia, no change in appetite Endocrine: no heat intolerance, no excessive thirst, no excessive sweating Hematologic/Lymphatic: no easy bruising, no easy bleeding, no lymphadenopathy Allergic/Immunologic: no allergic rhinitis, no persistent infections, no anaphylaxis Exam - Constitutional Vitals: Temp Pulse Resp BP Pulse Ox 97.6 F 62 18 105/45 98 05/15/20 11:59 05/15/20 12:00 05/15/20 12:05 05/15/20 12:00 05/15/20 12:00 General appearance: Present: mild distress - EENT Eyes: Present: PERRL ENT: hearing intact, clear oral mucosa - Neck Neck: Present: supple, normal ROM - Respiratory Respiratory effort: normal Respiratory: bilateral: CTA - Cardiovascular Rhythm: other (Bradycardia) Heart Sounds: Present: S1 & S2. Absent: rub, click - Extremities Extremities: pulses symmetrical, No edema Peripheral Pulses: within normal limits - Abdominal General gastrointestinal: Present: soft, non-tender, non-distended, normal bowel sounds Male genitourinary: Present: normal - Integumentary Integumentary: Present: clear, warm, dry - Musculoskeletal Musculoskeletal: gait normal, strength equal bilaterally - Psychiatric Psychiatric: appropriate mood/affect, intact judgment & insight - Neurologic Neurologic: CNII-XII intact, moves all extremities HEART Score - HEART Score Troponin: Troponin T < 0.010 ng/mL (0.00-0.029) 05/15/20 10:49 Results - Labs CBC & Chem 7: 05/15/20 10:49 05/15/20 10:49 Labs: Abnormal lab results 05/15/20 05/15/20 05/15/20 Range/Units 10:49 10:49 10:49 MCV 97 H (84-94) fl MCH 34 H (28-32) pg MCHC 35 H (32-34) % [place] % (Auto) 7.8 H (0.0-7.3) % APTT (24.2-36.6) Sec. Thrombin Time (15.1-19.6) Sec. Creatinine 0.7 L (0.8-1.3) mg/dL Glucose 135 H (75-100) mg/dL POC Glucose (70-105) Total Creatine Kinase 41 L (55-170) units/L Total Protein 6.1 L (6.3-8.2) g/dL Albumin 3.3 L (3.9-5) g/dL TSH 11.250 H (0.270-4.200) mlU/mL Digoxin (0.9-2.0) ng/mL 05/15/20 05/15/20 05/15/20 Range/Units 10:49 10:50 10:59 MCV (84-94) fl MCH (28-32) pg MCHC (32-34) % [place] % (Auto) (0.0-7.3) % APTT 23.5 L (24.2-36.6) Sec. Thrombin Time 14.6 L (15.1-19.6) Sec. Creatinine (0.8-1.3) mg/dL Glucose (75-100) mg/dL POC Glucose 143 H (70-105) Total Creatine Kinase (55-170) units/L Total Protein (6.3-8.2) g/dL Albumin (3.9-5) g/dL TSH (0.270-4.200) mlU/mL Digoxin 0.3 L (0.9-2.0) ng/mL Assessment and Plan - Patient Problems (1) Diastolic congestive heart failure Current Visit: Yes Status: Acute Plan to address problem: Strict I/O, monitor urine output every shift, daily weight, blood pressure control, cardiology team consulted. BNP, echocardiogram. (2) Symptomatic bradycardia Current Visit: Yes Status: Acute Plan to address problem: Admit to telemetry, continue medical management. Hold beta-marcy (3) Hypertension Current Visit: Yes Status: Acute Qualifiers: Hypertension type: essential hypertension Qualified Code(s): I10 - Essential (primary) hypertension Plan to address problem: Monitor blood pressure every shift, continue medical management. (4) Coronary artery disease Current Visit: Yes Status: Acute Plan to address problem: Risk factor reduction therapy, low-cholesterol diet, statin therapy, supportive care. (5) DVT prophylaxis Current Visit: No Status: Acute Plan to address problem: SCD to bilateral lower extremities while in bed, patient is ambulatory. (6) Advance care planning Current Visit: Yes Status: Acute Plan to address problem: Disease education conducted, patient is full code, prognosis discussed, patient knowledges understanding and agreement with care plan, +30 minutes.
[2020-05-15] MEDS ORDERED: ASPIRIN 300 MG RECT SUPP PR ONE ×2 (13:28→13:30)
[2020-05-15] MEDS: GABAPENTIN 300 MG CAP PO SCH ×2 (19:54→20:21)
[2020-05-15] MEDS: HYDROcodone/ACETAMINOPHEN 5-325 MG TAB PO PRN (22:31)
[2020-05-16 09:03] LABS: BUN/Creatinine Ratio 18; Blood Urea Nitrogen 14 mg/dL (9-20); Calcium 8.5 mg/dL (8.4-10.2); Hemolysis Index 6
[2020-05-16] MEDS: LISINOPRIL 40 MG TAB PO SCH (09:12)
[2020-05-16] MEDS: FERROUS SULFATE 325 MG TAB PO SCH (09:12)
[2020-05-16] MEDS: ASPIRIN EC 81 MG TAB PO SCH (09:12)
[2020-05-16] MEDS: GABAPENTIN 300 MG CAP PO SCH ×3 (09:12→21:20)
[2020-05-16] MEDS: CLOPIDOGREL 75 MG TAB PO SCH (09:12)
[2020-05-16] MEDS: MULTIVITAMINS,THER W-MINERALS TAB PO SCH (09:12)
[2020-05-16] MEDS ORDERED: FOLIC ACID PO SCH (10:00)
[2020-05-16] MEDS ORDERED: MV CAL MIN PO SCH (10:00)
[2020-05-16] MEDS ORDERED: LUT PO SCH (10:00)
[2020-05-16] MEDS ORDERED: IRON PO SCH (10:00)
--- NOTE | 2020-05-16 11:56 | Progress Note ---
Assessment and Plan Assessment and plan: 69 YO Male with HTN, PR, CHF, CAD S/P CABG, Obesity Hypoventilation Syndrome, HLD presents to ED for evaluation. Patient states that he was in his usual state of health and was ambulating to the kitchen to eat breakfast. Patient states that he experienced sudden onset of nausea followed by a near loss of consciousness. Patient reportedly went down to his knees without falling to the ground or losing consciousness. EMS was notified and upon arrival the patient was found to be in distress and subsequently transported to [facility] for further evaluation and care. Patient seen and evaluated in the emergency department. Lab and imaging studies reviewed. Patient found to have symptomatic bradycardia with heart rate in the 40s, as well as systems consistent with diastolic congestive heart failure. Patient admitted to telemetry. Cardiology team consulted in ED. Patient denies fever, chills, chest pain, palpitation, productive cough, skin rash, recent ill contacts, or known exposure to COVID-19. Prior admission on 03/31/2019 reviewed. All medication listed at time of admission has been reconciled. Advanced care planning conducted in ED. CTA CHEST : IMPRESSION: 1. No evidence for pulmonary embolism. 2. Mild cardiomegaly. 3. Mild bilateral interstitial thickening. This is a nonspecific finding but may suggest mild pulmonary edema. 4. Small hiatal hernia. ct head: IMPRESSION: 1. 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 05/16: Await cardiology evaluation we will also add a neurology evaluation due to vasovagal syncope although with transient paralysis. Anticipate discharge in a.m. if remains stable. We will continue to hold beta-marcy at this time. Plan of care discussed with the patient (1) Diastolic congestive heart failure Current Visit: Yes Status: Acute Plan to address problem: Strict I/O, monitor urine output every shift, daily weight, blood pressure control, cardiology team consulted. BNP, echocardiogram. (2) Symptomatic bradycardia Current Visit: Yes Status: Acute Plan to address problem: Admit to telemetry, continue medical management. Hold beta-marcy (3) Hypertension Current Visit: Yes Status: Acute Qualifiers: Hypertension type: essential hypertension Qualified Code(s): I10 - Essential (primary) hypertension Plan to address problem: Monitor blood pressure every shift, continue medical management. (4) Coronary artery disease Current Visit: Yes Status: Acute Plan to address problem: Risk factor reduction therapy, low-cholesterol diet, statin therapy, supportive care. (5) syncope As noted above (6) Advance care planning Current Visit: Yes Status: Acute Plan to address problem: Disease education conducted, patient is full code, prognosis discussed, patient knowledges understanding and agreement with care plan, +30 minutes. (7) DVT prophylaxis Current Visit: No Status: Acute Plan to address problem: SCD to bilateral lower extremities while in bed, patient is ambulatory. History Interval history: Patient seen and examined resting comfortably no new complaints. Describes the event that led to his hospitalization as quite alarming he did have a syncopal episode but also felt some type of paralysis as per few he could hear people talking but felt that he could not blink or respond. This was short-lived and is not improved. Hospitalist Physical - Physical exam Narrative exam: VITAL SIGNS: Reviewed. GENERAL: The patient appears normally developed, Vital signs as documented. HEAD: No signs of head trauma. EYES: Pupils are equal. Extraocular motions intact. EARS: Hearing grossly intact. MOUTH: Oropharynx is normal. NECK: No adenopathy, no JVD. CHEST: Chest with clear breath sounds bilaterally. No wheezes, rales, or rh onchi. CARDIAC: Regular rate and rhythm. S1 and S2, without murmurs, gallops, or rubs. VASCULAR: No Edema. Peripheral pulses normal and equal in all extremities. ABDOMEN: Soft, non tender and non distended. No rebound or guarding, and no masses palpated. Bowel Sounds normal. MUSCULOSKELETAL: Good range of motion of all major joints. Extremities without clubbing, cyanosis or edema. NEUROLOGIC EXAM: Alert and oriented x 3 No focal sensory or strength deficits. Speech normal. Follows commands. PSYCHIATRIC: Mood normal. SKIN: detail exam as documented in skin assessment - Constitutional Vitals: Temp Pulse Resp BP Pulse Ox 98.2 F 61 20 131/55 93 05/16/20 07:32 05/16/20 07:32 05/16/20 07:32 05/16/20 07:32 05/16/20 07:32 General appearance: Present: mild distress HEART Score - HEART Score Troponin: Troponin T < 0.010 ng/mL (0.00-0.029) 05/15/20 10:49 Results - Labs CBC & Chem 7: 05/15/20 10:49 05/16/20 07:53 Labs: Laboratory Last Values WBC 5.9 K/mm3 (4.5-11.0) 05/15/20 10:49 RBC 3.67 M/mm3 (3.65-5.03) 05/15/20 10:49 Hgb 12.3 gm/dl (11.8-15.2) 05/15/20 10:49 Hct 35.5 % (35.5-45.6) 05/15/20 10:49 MCV 97 fl (84-94) H 05/15/20 10:49 MCH 34 pg (28-32) H 05/15/20 10:49 MCHC 35 % (32-34) H 05/15/20 10:49 RDW 13.2 % (13.2-15.2) 05/15/20 10:49 Plt Count 171 K/mm3 (140-440) 05/15/20 10:49 Lymph % (Auto) 26.0 % (13.4-35.0) 05/15/20 10:49 [place] % (Auto) 7.8 % (0.0-7.3) H 05/15/20 10:49 Eos % (Auto) 2.0 % (0.0-4.3) 05/15/20 10:49 Baso % (Auto) 1.7 % (0.0-1.8) 05/15/20 10:49 Lymph # (Auto) 1.5 K/mm3 (1.2-5.4) 05/15/20 10:49 Ward # (Auto) 0.5 K/mm3 (0.0-0.8) 05/15/20 10:49 Eos # (Auto) 0.1 K/mm3 (0.0-0.4) 05/15/20 10:49 Baso # (Auto) 0.1 K/mm3 (0.0-0.1) 05/15/20 10:49 Seg Neutrophils % 62.5 % (40.0-70.0) 05/15/20 10:49 Seg Neutrophils # 3.7 K/mm3 (1.8-7.7) 05/15/20 10:49 PT 13.6 Sec. (12.2-14.9) 05/15/20 10:50 INR 1.02 (0.87-1.13) 05/15/20 10:50 APTT 23.5 Sec. (24.2-36.6) L 05/15/20 10:50 Thrombin Time 14.6 Sec. (15.1-19.6) L 05/15/20 10:50 Sodium 140 mmol/L (137-145) 05/16/20 07:53 Potassium 4.2 mmol/L (3.6-5.0) 05/16/20 07:53 Chloride 103.3 mmol/L (98-107) 05/16/20 07:53 Carbon Dioxide 33 mmol/L (22-30) H 05/16/20 07:53 Anion Gap 8 mmol/L 05/16/20 07:53 BUN 14 mg/dL (9-20) 05/16/20 07:53 Creatinine 0.8 mg/dL (0.8-1.3) 05/16/20 07:53 Estimated GFR > 60 ml/min 05/16/20 07:53 BUN/Creatinine Ratio 18 % 05/16/20 07:53 Glucose 85 mg/dL (75-100) 05/16/20 07:53 POC Glucose 104 (70-105) 05/15/20 16:43 Calcium 8.5 mg/dL (8.4-10.2) 05/16/20 07:53 Magnesium 2.00 mg/dL (1.7-2.3) 05/15/20 10:49 Total Bilirubin 0.70 mg/dL (0.1-1.2) 05/15/20 10:49 AST 17 units/L (5-40) 05/15/20 10:49 ALT 11 units/L (7-56) 05/15/20 10:49 Alkaline Phosphatase 106 units/L (35-129) 05/15/20 10:49 Total Creatine Kinase 41 units/L (55-170) L 05/15/20 10:49 CK-MB (CK-2) 1.5 ng/mL (0.0-4.0) 05/15/20 10:49 CK-MB (CK-2) Rel Index 3.6 (0-4) 05/15/20 10:49 Troponin T < 0.010 ng/mL (0.00-0.029) 05/15/20 10:49 Total Protein 6.1 g/dL (6.3-8.2) L 05/15/20 10:49 Albumin 3.3 g/dL (3.9-5) L 05/15/20 10:49 Albumin/Globulin Ratio 1.2 % 05/15/20 10:49 Lipase 19 units/L (13-60) 05/15/20 10:49 TSH 11.250 mlU/mL (0.270-4.200) H 05/15/20 10:49 Free T4 0.96 ng/dL (0.76-1.46) 05/15/20 10:49 Digoxin 0.3 ng/mL (0.9-2.0) L 05/15/20 10:49 Blood Type A NEGATIVE 05/15/20 10:49 Antibody Screen Negative 05/15/20 10:49 - Diagnostic Impressions Diagnostic Impressions: Echocardiogram 05/15/20 13:25 Transthoracic Echocardiogram Indication: CHF BP: 105/45 Conclusions *The left ventricular chamber size is normal. *Mild concentric left ventricular hypertrophy is observed. *The estimated ejection fraction is 60-65%. *The left ventricular diastolic filling pattern is consistent with pseudonormalization. *The left atrium is moderate to severely dilated. *The right ventricle is mildly dilated. *The right ventricle is mildly dilated. *The right ventricular global systolic function is mildly reduced. *The right atrium is mildly dilated. *The right ventricular systolic pressure is calculated at 24 mmHg. Findings Procedure Info: The study quality is fair. Left Ventricle: The left ventricular chamber size is normal. Mild concentric left ventricular hypertrophy is observed. The estimated ejection fraction is 60-65%. The left ventricular diastolic filling pattern is consistent with pseudonormalization. Left Atrium: The left atrium is moderate to severely dilated. Right Ventricle: The right ventricle is mildly dilated. The right ventricular global systolic function is mildly reduced. Right Atrium: The right atrium is mildly dilated. Aortic Valve: The aortic valve is trileaflet. Mild aortic cusp sclerosis is present. There is no evidence of aortic regurgitation. There is no evidence of aortic stenosis. Mitral Valve: The mitral valve leaflets appear normal. There is posterior mitral annular calcification. There is trace of mitral regurgitation. There is no evidence of mitral stenosis. Tricuspid Valve: The tricuspid valve leaflets are normal. There is trace tricuspid regurgitation. The right ventricular systolic pressure is calculated at 24 mmHg. There is no tricuspid stenosis. Pulmonic Valve: The pulmonic valve is not well visualized. There is mild pulmonic regurgitation. There is no pulmonic stenosis. Pericardium: The pericardium appears normal. Aorta: The aorta appears normal. Pulmonary Artery: The main pulmonary artery is not well visualized. Venous: The inferior vena cava is not visualized. Measurements Chambers 2D Name Value Normal Range IVSd (2D) 1.11 cm (0.6 - 1.1) LVPWd (2D) 1.06 cm (0.6 - 1.1) LVIDd (2D) 4.24 cm (3.7 - 5.6) LVIDs (2D) 2.9 cm (2 - 3.8) LV FS (2D) 31.51 % - EF Teichholz (2D) 59.78 % - Ao root diameter (2D) 2.96 cm (2 - 3.7) Volumes/Mass Name Value Normal Range LA ESV SP 4CH (A/L) 122.08 ml - LA ESV SP 2CH (A/L) 102.49 ml - LA ESV BP (A/L) 118.34 ml - LA ESV BP (A/L) index 55.04 ml/m2 - LA ESV SP 4CH (MOD) 116.16 ml - LA ESV SP 2CH (MOD) 96.41 ml - LA ESV BP (MOD) 111.49 ml - LA ESV BP (MOD) index 51.85 ml/m2 - LV EDV SP 4CH (MOD) 130.37 ml - LV ESV SP 4CH (MOD) 43.31 ml - EF SP 4CH (MOD) 66.78 % - LV EDV SP 2CH (MOD) 109.75 ml - LV ESV SP 2CH (MOD) 43.28 ml - EF SP 2CH (MOD) 60.57 % - LV EDV BP 125.4 ml - LV ESV BP 44.72 ml - BP EF (MOD) 64.34 % - Diastolic/Systolic Function Name Value Normal Range MV E-wave Vmax 1.18 m/sec - MV deceleration time 467.84 msec - MV A-wave Vmax 0.65 m/sec - MV E:A ratio 1.82 ratio - Aortic Valve Name Value Normal Range AV Vmax 1.44 m/sec - AV VTI 33.78 cm - AV peak gradient 8.26 mmHg - AV mean gradient 4.11 mmHg - LVOT diameter 2.15 cm - LVOT Vmax 0.96 m/sec - LVOT VTI 24.83 cm - LVOT peak gradient 3.71 mmHg - LVOT mean gradient 1.81 mmHg - SV LVOT 90.21 ml - FACUNDO (continuity Vmax) 2.44 cm2 - FACUNDO (continuity VTI) 2.67 cm2 - Ascending Ao 2.58 cm - Tricuspid Valve Name Value Normal Range TV E-wave Vmax 0.53 m/sec - TR Vmax 2.31 m/sec - TR peak gradient 21.32 mmHg - RAP 3 mmHg - RVSP 24 mmHg - Pulmonic Valve/Qp:Qs Name Value Normal Range PV Vmax 1.2 m/sec - PV peak gradient 5.81 mmHg - MA end-diastolic Vmax 1.2 m/sec - RVOT Vmax 0.85 m/sec - RVOT VTI 19.29 cm - RVOT peak gradient 2.89 mmHg - PV acceleration time 125.59 msec - Echeverria/IV: Voiding Method Urinal IV Catheter Type [Left Hand] INT / Saline Lock IV Catheter Type [Right INT / Saline Lock Antecubital] Active Medications - Current Medications Current Medications: Generic Name Dose Route Start Last Admin Trade Name Freq PRN Reason Stop Dose Admin Acetaminophen 650 mg 05/15/20 13:20 05/16/20 10:53 Tylenol PO 650 mg Q4H PRN Administration Pain MILD(1-3)/Fever >100.5/VEGA Hydrocodone Bitart/Acetaminophen 1 each 05/15/20 13:25 05/15/20 22:31 [place] 5/325 PO 1 each Q6H PRN Administration PAIN MODERATE (4-7) Albuterol 2.5 mg 05/15/20 13:20 Proventil IH Q4H PRN Shortness Of Breath Aspirin 81 mg 05/16/20 10:00 05/16/20 09:12 Halfprin Ec PO 81 mg DAILY MATIAS Administration Atorvastatin Calcium 20 mg 05/16/20 22:00 05/15/20 22:26 Lipitor PO 20 mg HS MATIAS Administration Clopidogrel Bisulfate 75 mg 05/16/20 10:00 05/16/20 09:12 Plavix PO 75 mg QDAY MATIAS Administration Ferrous Sulfate 325 mg 05/16/20 10:00 05/16/20 09:12 Feosol PO 325 mg DAILY MATIAS Administration Gabapentin 600 mg 05/15/20 14:00 05/16/20 09:12 Gabapentin PO 600 mg TID MATIAS Administration Lisinopril 40 mg 05/16/20 10:00 05/16/20 09:12 Zestril PO 40 mg DAILY MATIAS Administration Multivitamins/Minerals 1 each 05/16/20 10:00 05/16/20 09:12 Theragran-M Tab PO 1 each QDAY MATIAS Administration Ondansetron HCl 4 mg 05/15/20 13:20 Zofran IV Q8H PRN Nausea And Vomiting Sodium Chloride 10 ml 05/15/20 22:00 05/16/20 09:12 Sodium Chloride Flush Syringe 10 Ml IV 10 ml BID MATIAS Administration Sodium Chloride 10 ml 05/15/20 13:20 Sodium Chloride Flush Syringe 10 Ml IV PRN PRN LINE FLUSH
--- NOTE | 2020-05-16 14:26 | Consultation ---
History of Present Illness Consult date: 05/16/20 Requesting physician: MANOJ RODRIGUEZ Consult reason: bradycardia History of present illness: The pt is a 69 YO male with a past medical history of CAD s/p CABG and multiple PCIs, RBBB, PVD, HTN, HLP, DM, ?PAF. He is followed in our office by Dr. Adrianne Stubbs. He presented for evaluation following a syncopal episode. Pt reports that he was cooking breakfast with his yesterday AM and went to the bathroom. On his way back from the bathroom, he experienced sudden onset of nausea with some epigastric pain and then lost consciousness. Pt states that his and daughter witnessed the syncopal event. They assisted pt to floor and pt next recalls being transported to the hospital in the ambulance. Pt denies any occurr ence of chest pain, palpitations, vomiting, diaphoresis. Head CT with NAF. Chest CTA negative for PE. tele reviewed - pt noted to be in NSR with 1st deg AVB, HR 60s with HR low 46bpm overnight, 2.21 sec sinus pause noted at 8AM today. LHC done 03/2019 with PCI of SVG to RCA via left groin approach, complicated by left groin hematoma requiring stent placement across the puncture site in the left common femoral artery. tte done 04/2019 showed EF 55-60%, grade II diastolic dysfunction, LA mildly d ilated. Past History Past Medical History: CAD, hypertension, hyperlipidemia, other (See HPI) Past Surgical History: cholecystectomy, CABG, Other (Cardiac stent placement) Social history: , lives with family Family history: hypertension Medications and Allergies Allergies Allergy/AdvReac Type Severity Reaction Status Date / Time No Known Allergies Allergy Unverified 03/16/14 06:50 Home Medications Medication Instructions Recorded Confirmed Last Taken Type Aspirin [Adult Aspirin] 81 mg PO DAILY 03/31/19 05/15/20 05/15/20 History AtorvaSTATin [Lipitor] 20 mg PO DAILY 03/31/19 05/15/20 05/15/20 History Clopidogrel [Plavix] 75 mg PO QDAY 03/31/19 05/15/20 05/15/20 History Ferrous Sulfate [Slow Release Iron 54 mg PO DAILY 03/31/19 05/15/20 05/15/20 History 47.5 Mg tab] Furosemide [Lasix TAB] 40 mg PO DAILY 03/31/19 05/15/20 03/30/19 History Gabapentin [Neurontin] 600 mg PO TID 03/31/19 05/15/20 05/15/20 History Mv,Will,Min/Iron/Folic Acid/Lut 1 each PO DAILY 03/31/19 05/15/20 05/15/20 History [Complete Multi Tablet] Nitroglycerin [Nitrostat] 0.4 mg SL Q5M PRN 03/31/19 05/15/20 3 Months Ago History ~12/29/18 carvediloL [Coreg] 6.25 mg PO BID 03/31/19 05/15/20 05/15/20 History lisinopriL [Zestril TAB] 40 mg PO DAILY 03/31/19 05/15/20 05/15/20 History Isosorbide Dinitrate [Isordil] 30 mg PO DAILY 05/15/20 05/15/20 Unknown History Active Meds: Active Medications Acetaminophen (Tylenol) 650 mg PO Q4H PRN PRN Reason: Pain MILD(1-3)/Fever >100.5/VEGA Last Admin: 05/16/20 10:53 Dose: 650 mg Documented by: Hydrocodone Bitart/Acetaminophen ([place] 5/325) 1 each PO Q6H PRN PRN Reason: PAIN MODERATE (4-7) Last Admin: 05/15/20 22:31 Dose: 1 each Documented by: Albuterol (Proventil) 2.5 mg IH Q4H PRN PRN Reason: Shortness Of Breath Aspirin (Halfprin Ec) 81 mg PO DAILY [facility] Last Admin: 05/16/20 09:12 Dose: 81 mg Documented by: Atorvastatin Calcium (Lipitor) 20 mg PO HS [facility] Last Admin: 05/15/20 22:26 Dose: 20 mg Documented by: Clopidogrel Bisulfate (Plavix) 75 mg PO QDAY [facility] Last Admin: 05/16/20 09:12 Dose: 75 mg Documented by: Ferrous Sulfate (Feosol) 325 mg PO DAILY [facility] Last Admin: 05/16/20 09:12 Dose: 325 mg Documented by: Gabapentin (Gabapentin) 600 mg PO TID [facility] Last Admin: 05/16/20 13:08 Dose: 600 mg Documented by: Lisinopril (Zestril) 40 mg PO DAILY [facility] Last Admin: 05/16/20 09:12 Dose: 40 mg Documented by: Multivitamins/Minerals (Theragran-M Tab) 1 each PO QDAY [facility] Last Admin: 05/16/20 09:12 Dose: 1 each Documented by: Ondansetron HCl (Zofran) 4 mg IV Q8H PRN PRN Reason: Nausea And Vomiting Sodium Chloride (Sodium Chloride Flush Syringe 10 Ml) 10 ml IV BID [facility] Last Admin: 05/16/20 09:12 Dose: 10 ml Documented by: Sodium Chloride (Sodium Chloride Flush Syringe 10 Ml) 10 ml IV PRN PRN PRN Reason: LINE FLUSH Review of Systems Constitutional: no weight loss, no weight gain, no fever, no chills, no sweats Ears, nose, mouth and throat: no ear pain, no nose pain, no sinus pressure, no sinus pain Cardiovascular: syncope, no chest pain, no orthopnea, no palpitations, no rapid/irregular heart beat, no edema, no shortness of breath, no dyspnea on exertion, no leg edema Respiratory: no cough, no shortness of breath, no dyspnea on exertion, no congestion, no wheezing, no pain on inspiration Gastrointestinal: abdominal pain (epigastric ), nausea, no vomiting, no diarrhea, no constipation, no change in bowel habits, no hematemesis, no coffee ground emesis Genitourinary Male: no dysuria, no hematuria, no flank pain, no discharge, no urinary frequency, no urinary hesitancy Musculoskeletal: no neck stiffness, no neck pain, no shooting arm pain, no arm numbness/tingling, no low back pain, no shooting leg pain Integumentary: no rash, no pruritis, no redness, no sores, no wounds Neurological: syncope, no head injury, no paralysis, no weakness, no parathesias, no numbness, no tingling, no seizures Psychiatric: no anxiety Endocrine: no cold intolerance, no heat intolerance Hematologic/Lymphatic: no easy bruising, no easy bleeding Allergic/Immunologic: no urticaria Physical Examination Vital Signs Pulse Resp BP Pulse Ox 52 L 14 119/55 94 05/15/20 10:38 05/15/20 10:38 05/15/20 10:38 05/15/20 10:38 General appearance: no acute distress HEENT: Positive: PERRL, Normocephaly, Mucus Membranes Moist Neck: Positive: neck supple, trachea midline Cardiac: Positive: Reg Rate and Rhythm, S1/S2 Lungs: Positive: Decreased Breath Sounds Neuro: Positive: Grossly Intact Abdomen: Negative: Tender Skin: Negative: Rash Musculoskeletal: No Pain Extremities: Absent: edema Results 05/15/20 10:49 05/16/20 07:53 Comprehensive Metabolic Panel 05/16/20 Range/Units 07:53 Sodium 140 (137-145) mmol/L Potassium 4.2 (3.6-5.0) mmol/L Chloride 103.3 (98-107) mmol/L Carbon Dioxide 33 H (22-30) mmol/L BUN 14 (9-20) mg/dL Creatinine 0.8 (0.8-1.3) mg/dL Glucose 85 (75-100) mg/dL Calcium 8.5 (8.4-10.2) mg/dL - Imaging and Cardiology Echo: pending, report reviewed (04/2019 showed EF 55-60%, grade II diastolic dysfunction, LA mildly dilated. ) Cardiac cath: report reviewed (03/2019 with PCI of SVG to RCA via left groin approach, complicated by left groin hematoma requiring stent placement across the puncture site in the left common femoral artery. ) EKG: report reviewed, image reviewed EKG interpretations - Telemetry EKG Rhythm: Sinus Bradycardia - EKG Sinus rhythms and dysrhythmias: sinus bradycardia AV and intraventricular conduction: 1 AV block, right bundle branch block Assessment and Plan tele reviewed - pt noted to be in NSR with 1st deg AVB, HR 60s with HR low 46bpm overnight, 2.21 sec sinus pause noted at 8AM today. Cont to hold AV timbo blocking agents. tte reviewed - EF 60-65%, mild LVH, LA mod to severely dilated, RV mildly dilated, RV systolic function mildly reduced, RA mildly dilated, RVSP 24mmHg. TSH significantly elevated - further eval/management per primary team. Pt's syncopal episode appears vasovagal in etiology. Cont to monitor on telemetry. Obtain orthostatics. Will follow. The patient has been seen in conjunction with Dr. Smith who agrees with the assessment and plan of care. - Patient Problems (1) Syncope Current Visit: Yes Status: Acute Plan to address problem: ? vasovagal (2) Coronary artery disease Current Visit: Yes Status: Chronic (3) Hx of CABG Current Visit: Yes Status: Chronic (4) Stented coronary artery Current Visit: Yes Status: Chronic (5) RBBB Current Visit: Yes Status: Chronic (6) PVD (peripheral vascular disease) Current Visit: Yes Status: Chronic (7) Hypertension Current Visit: Yes Status: Chronic Qualifiers: Hypertension type: essential hypertension Qualified Code(s): I10 - Essential (primary) hypertension (8) Diabetes Current Visit: Yes Status: Chronic (9) Hyperlipidemia Current Visit: Yes Status: Chronic (10) Sinus bradycardia Current Visit: Yes Status: Acute (11) 1st degree AV block Current Visit: Yes Status: Acute
[2020-05-17] MEDS: GABAPENTIN 300 MG CAP PO SCH ×2 (07:41→16:00)
[2020-05-17] MEDS: HYDROcodone/ACETAMINOPHEN 5-325 MG TAB PO PRN (07:41)
[2020-05-17] MEDS: ASPIRIN EC 81 MG TAB PO SCH (09:07)
[2020-05-17] MEDS: FERROUS SULFATE 325 MG TAB PO SCH (09:07)
[2020-05-17] MEDS: CLOPIDOGREL 75 MG TAB PO SCH (09:07)
[2020-05-17] MEDS: MULTIVITAMINS,THER W-MINERALS TAB PO SCH (09:07)
[2020-05-17] MEDS: LISINOPRIL 40 MG TAB PO SCH (09:07)
--- NOTE | 2020-05-17 11:21 | Consultation ---
History of Present Illness Consult date: 05/17/20 Requesting physician: CATALINA SILVA Reason for Consult: Syncope Chief complaint: "I passed out and I couldn't speak." History of present illness: 69 yo male with hypertension, dm, cadx, pvdx, who presents with an episode of passing out w/ no active seizure activity witnessed but then noted in the ED with some difficulty w/ speech. He was noted to be bradycardic in the 40s (episodic 20s) at the time with associated hypotension and per teleneurology note, with generalized weakness w/o any true aphasia or focal neurologic findings. The patient notes that he was sitting down and then the next thing he knew he was on the floor. He notes that he remembers getting up and [facility] and then he turned around and felt "funny", sat down, and then got light-headed and the next thing he remembers is being on the floor. He notes he felt a slight amount of chest/upper stomach pain at the time, on the floor, but otherwise was fine w/o any tongue biting or urinary/fecal incontinence. He remembers EMS arriving but notes that initially he felt like he could hear everything around him but he couldn't respond to them and then notes that it took around 2 hours for him to get back to feeling like he could get his words out in a normal way. Currently, he notes that he still feels slightly unsteady when he walks but otherwise he is okay. He denies any acute headache, nausea, emesis, vertigo (though notes light-headedness before he fell to the ground), focal weakness/numbness/tingling, or acute changes in his primary senses. Past History Past Medical History: CAD, hypertension, hyperlipidemia, other (See HPI) Past Surgical History: cholecystectomy, CABG, Other (Cardiac stent placement) Social history: , lives with family Family history: hypertension Medications and Allergies Allergies Allergy/AdvReac Type Severity Reaction Status Date / Time No Known Allergies Allergy Unverified 03/16/14 06:50 Home Medications Medication Instructions Recorded Confirmed Last Taken Type Aspirin [Adult Aspirin] 81 mg PO DAILY 03/31/19 05/15/20 05/15/20 History AtorvaSTATin [Lipitor] 20 mg PO DAILY 03/31/19 05/15/20 05/15/20 History Clopidogrel [Plavix] 75 mg PO QDAY 03/31/19 05/15/20 05/15/20 History Ferrous Sulfate [Slow Release Iron 54 mg PO DAILY 03/31/19 05/15/20 05/15/20 History 47.5 Mg tab] Furosemide [Lasix TAB] 40 mg PO DAILY 03/31/19 05/15/20 03/30/19 History Gabapentin [Neurontin] 600 mg PO TID 03/31/19 05/15/20 05/15/20 History Mv,Will,Min/Iron/Folic Acid/Lut 1 each PO DAILY 03/31/19 05/15/20 05/15/20 History [Complete Multi Tablet] Nitroglycerin [Nitrostat] 0.4 mg SL Q5M PRN 03/31/19 05/15/20 3 Months Ago History ~12/29/18 lisinopriL [Zestril TAB] 40 mg PO DAILY 03/31/19 05/15/20 05/15/20 History Isosorbide Dinitrate [Isordil] 30 mg PO DAILY 05/15/20 05/15/20 Unknown History Levothyroxine [Synthroid] 25 mcg PO QAM #30 tablet 05/17/20 Unknown Rx Active Meds: Active Medications Acetaminophen (Tylenol) 650 mg PO Q4H PRN PRN Reason: Pain MILD(1-3)/Fever >100.5/VEGA Last Admin: 05/16/20 10:53 Dose: 650 mg Documented by: Hydrocodone Bitart/Acetaminophen ([place] 5/325) 1 each PO Q6H PRN PRN Reason: PAIN MODERATE (4-7) Last Admin: 05/17/20 07:41 Dose: 1 each Documented by: Albuterol (Proventil) 2.5 mg IH Q4H PRN PRN Reason: Shortness Of Breath Aspirin (Halfprin Ec) 81 mg PO DAILY [facility] Last Admin: 05/17/20 09:07 Dose: 81 mg Documented by: Atorvastatin Calcium (Lipitor) 20 mg PO HS [facility] Last Admin: 05/16/20 21:20 Dose: 20 mg Documented by: Clopidogrel Bisulfate (Plavix) 75 mg PO QDAY [facility] Last Admin: 05/17/20 09:07 Dose: 75 mg Documented by: Ferrous Sulfate (Feosol) 325 mg PO DAILY [facility] Last Admin: 05/17/20 09:07 Dose: 325 mg Documented by: Gabapentin (Gabapentin) 600 mg PO TID [facility] Last Admin: 05/17/20 07:41 Dose: 600 mg Documented by: Lisinopril (Zestril) 40 mg PO DAILY [facility] Last Admin: 05/17/20 09:07 Dose: 40 mg Documented by: Multivitamins/Minerals (Theragran-M Tab) 1 each PO QDAY [facility] Last Admin: 05/17/20 09:07 Dose: 1 each Documented by: Ondansetron HCl (Zofran) 4 mg IV Q8H PRN PRN Reason: Nausea And Vomiting Sodium Chloride (Sodium Chloride Flush Syringe 10 Ml) 10 ml IV BID [facility] Last Admin: 05/17/20 09:07 Dose: 10 ml Documented by: Sodium Chloride (Sodium Chloride Flush Syringe 10 Ml) 10 ml IV PRN PRN PRN Reason: LINE FLUSH Physical Examination - Vital Signs Vital Signs: Vital Signs Pulse Resp BP Pulse Ox 52 L 14 119/55 94 05/15/20 10:38 05/15/20 10:38 05/15/20 10:38 05/15/20 10:38 - Additional Exam Additional Exam: Gen: nad, well-nourished; Head: normocephalic; Eyes: no gaze deviation; no ptosis; ENT: normal vocalization; CVS: warm and well-perfused; Pulm: no respiratory distress; GI: non-distended; Ext: no cyanosis or edema appreciated at distal extremities; Skin: no acute rash or hives at distal extremities; Heme: no ecchymosis at distal extremities; Neuro: alert, oriented to name, age, month, year, surroundings, no dysarthria, no aphasia, CN 2 - PERRL, visual [place] intact only at left eye; notes only "darkness" w/ right eye; CN 3, 4, 6 - EOMI, CN 5 - facial sensation symmetric to light touch, CN 7 - facial movement symmetric, CN 8 - hearing grossly intact, CN 9, 10 - uvula midline, CN 11 - shrug symmetric, CN 12 - tongue midline; Motor - at least 5-/5 in all exts; Sensory - light touch symmetric except at left sole and noted proximal to distal gradient at lower extremities; Cerebellar - fnf/hts intact, Gait - deferred secondary to fall risk; NIHSS (1a.) Level of Consciousness: 0 (1b.) LOC Questions: 0 (1c.) LOC Commands: 0 (2.) Best Gaze: 0 (3.) Visual: 2 (4.) Facial Palsy: 0 (5a.) Motor Arm, Left: (5b.) Motor Arm, Right: 0 (6a.) Motor Leg, Left: 0 (6b.) Motor Leg, Right: 0 (7.) Limb Ataxia: 0 (8.) Sensory: 0 (9.) Best Language: 0 (10.) Dysarthria: 0 (11.) Extinction and Inattention: 0 NIHSS Total Score:2 Results - Laboratory Findings CBC and BMP: 05/15/20 10:49 05/16/20 07:53 Abnormal Lab Findings: Abnormal Labs 05/15/20 05/15/20 05/15/20 10:49 10:49 10:49 MCV 97 H MCH 34 H MCHC 35 H [place] % (Auto) 7.8 H APTT Thrombin Time Carbon Dioxide Creatinine 0.7 L Glucose 135 H POC Glucose Total Creatine Kinase 41 L Total Protein 6.1 L Albumin 3.3 L TSH 11.250 H Digoxin 05/15/20 05/15/20 05/15/20 10:49 10:50 10:59 MCV MCH MCHC [place] % (Auto) APTT 23.5 L Thrombin Time 14.6 L Carbon Dioxide Creatinine Glucose POC Glucose 143 H Total Creatine Kinase Total Protein Albumin TSH Digoxin 0.3 L 05/16/20 07:53 MCV MCH MCHC [place] % (Auto) APTT Thrombin Time Carbon Dioxide 33 H Creatinine Glucose POC Glucose Total Creatine Kinase Total Protein Albumin TSH Digoxin Assessment and Plan 69 yo male with hypertension, dm, cadx, pvdx, who presents with an episode of passing out w/ no active seizure activity witnessed but then noted in the ED with some difficulty w/ speech. PLAN 1. TIA - secondary to probable hypoperfusion in the setting of bradycardia/hypotension; continue home regimen of antiplatelet therapy and may consider statin therapy if LDL is greater than 100; MRI Brain w/ wo contrast and MRA Head w/o and MRA Neck w/ wo contrast are unremarkable for an acute process. 2. Hypertension - maintain normotension. 3. Diabetes Mellitus - maintain euglycemia. 4. Unsteady Gait - per patient, consider pt/ot evaluation/monitoring if not back to baseline vs. anxiety-related. 5. Right eye visual loss - secondary to hx of retinal tear (chronic finding). 6. No further acute neurologic workup indicated at present. Neurology will signoff. Amrit Navarro MD Tele-Neurology
--- NOTE | 2020-05-17 14:03 | Progress Note ---
Assessment and Plan tele reviewed - in SR with 1st deg AVB, HR 60s with HR low 44bpm overnight, infrequent sinus pauses noted overnight while sleeping with longest pause 2.2 sec. Cont to avoid AV timbo blocking agents and recommend OP sleep study. tte reviewed - EF 60-65%, mild LVH, LA mod to severely dilated, RV mildly dilated, RV systolic function mildly reduced, RA mildly dilated, RVSP 24mmHg. TSH significantly elevated - further eval/management per primary team. Orthostatics unremarkable. Pt's syncopal episode appears vasovagal in etiology. Neuro w/u in progress. Currently stable cardiac status. Assessment and plan reviewed with pt at bedside and with pt's daughter via telephone. All questions answered and concerns addressed. Pt may discharge from cardiology standpoint. Follow up in our [place] office with Dr. Adrianne Stubbs on 06/03/2020 @ 3:15PM. The patient has been seen in conjunction with Dr. Smith who agrees with the assessment and plan of care. - Patient Problems (1) Syncope Current Visit: Yes Status: Acute Plan to address problem: ? vasovagal (2) Coronary artery disease Current Visit: Yes Status: Chronic (3) Hx of CABG Current Visit: Yes Status: Chronic (4) Stented coronary artery Current Visit: Yes Status: Chronic (5) RBBB Current Visit: Yes Status: Chronic (6) PVD (peripheral vascular disease) Current Visit: Yes Status: Chronic (7) Hypertension Current Visit: Yes Status: Chronic Qualifiers: Hypertension type: essential hypertension Qualified Code(s): I10 - Essential (primary) hypertension (8) Diabetes Current Visit: Yes Status: Chronic (9) Hyperlipidemia Current Visit: Yes Status: Chronic (10) Sinus bradycardia Current Visit: Yes Status: Acute (11) 1st degree AV block Current Visit: Yes Status: Acute Subjective Date of service: 05/17/20 Principal diagnosis: syncope Interval history: pt resting in bed, no current complaints. has been ambulating around room without difficulty. tele reviewed - in SR with 1st deg AVB, HR 60s with HR low 44bpm overnight, infrequent sinus pauses noted overnight while sleeping with longest pause 2.2 sec. Objective Last Vital Signs Temp 97.6 F 05/17/20 07:36 Pulse 58 L 05/17/20 10:00 Resp 18 10/06/20 03:53 BP 164/68 05/17/20 07:36 Pulse Ox 98 05/17/20 10:00 - Physical Examination General: No Apparent Distress HEENT: Positive: PERRL, Normocephaly, Mucus Membranes Moist Neck: Positive: neck supple, trachea midline Cardiac: Positive: Reg Rate and Rhythm, S1/S2 Lungs: Positive: Decreased Breath Sounds Neuro: Positive: Grossly Intact Abdomen: Negative: Tender Skin: Negative: Rash Musculoskeletal: No Pain Extremities: Absent: edema - Imaging and Cardiology EKG: report reviewed, image reviewed Echo: report reviewed (05/2020: EF 60-65%, mild LVH, LA mod to severely dilated, RV mildly dilated, RV systolic function mildly reduced, RA mildly dilated, RVSP 24mmHg. 04/2019 showed EF 55-60%, grade II diastolic dysfunction, LA mildly dilated. ) Cardiac cath: report reviewed (03/2019 with PCI of SVG to RCA via left groin approach, complicated by left groin hematoma requiring stent placement across the puncture site in the left common femoral artery. ) - Telemetry EKG Rhythm: Sinus Rhythm - EKG Sinus rhythms and dysrhythmias: sinus bradycardia AV and intraventricular conduction: 1 AV block, right bundle branch block
--- NOTE | 2020-05-17 14:39 | Progress Note ---
Assessment and Plan Assessment and plan: Assessment and plan: 69 YO Male with HTN, [place], CHF, CAD S/P CABG, Obesity Hypoventilation Syndrome, HLD presents to ED for evaluation. Patient states that he was in his usual state of health and was ambulating to the kitchen to eat breakfast. Patient states that he experienced sudden onset of nausea followed by a near loss of consciousness. Patient reportedly went down to his knees without falling to the ground or losing consciousness. EMS was notified and upon arrival the patient was found to be in distress and subsequently transported to [facility] for further evaluation and care. Patient seen and evaluated in the emergency department. Lab and imaging studies reviewed. Patient found to have symptomatic bradycardia with heart rate in the 40s, as well as systems consistent with diastolic conges tive heart failure. Patient admitted to telemetry. Cardiology team consulted in ED. Patient denies fever, chills, chest pain, palpitation, productive cough, skin rash, recent ill contacts, or known exposure to COVID-19. Prior admission on 03/31/2019 reviewed. All medication listed at time of admission has been reconciled. Advanced care planning conducted in ED. CTA CHEST : IMPRESSION: 1. No evidence for pulmonary embolism. 2. Mild cardiomegaly. 3. Mild bilateral interstitial thickening. This is a nonspecific finding but may suggest mild pulmonary edema. 4. Small hiatal hernia. ct head: IMPRESSION: 1. 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 05/16: Await cardiology evaluation we will also add a neurology evaluation due to vasovagal syncope although with transient paralysis. Anticipate discharge in a.m. if remains stable. We will continue to hold beta-marcy at this time. Plan of care discussed with the patient. 05/17. Patient reportedly had possible paralysis and difficulty with speech after admission. CT head performed on the day of admission was negative for any ischemia. Neurology has been consulted as patient will need to have an MRI of the brain. Neurology recommends MRI brain and MRA head and neck which have been ordered. Discussed case with patient's family today. There was also question of possible transfer of patient to [facility]. No available beds at [facility] at this time. Family have been updated Problems (1) Diastolic congestive heart failure Current Visit: Yes Status: Acute Plan to address problem: Patient will need to follow-up with cardiology team in the office after discharge (2) Symptomatic bradycardia Current Visit: Yes Status: Acute Plan to address problem: This is improved Patient will need to follow-up with cardiology team in the office (3) Hypertension Current Visit: Yes Status: Acute Qualifiers: Hypertension type: essential hypertension Qualified Code(s): I10 - Essential (primary) hypertension Plan to address problem: Monitor blood pressure every shift, continue medical management. (4) Coronary artery disease Current Visit: Yes Status: Acute Plan to address problem: Risk factor reduction therapy, low-cholesterol diet, statin therapy, supportive care. (5) Syncope Orthostatic vitals negative At this time, his syncopal episode was most likely likely from his bradycardia. Cardiology recommendations been appreciated Patient reportedly had an episode of possible paralysis with difficulty with speech after admission. MRI brain and MRA head and neck ordered as per neurology. (6) Advance care planning Current Visit: Yes Status: Acute Plan to address problem: Disease education conducted, patient is full code, prognosis discussed, patient knowledges understanding and agreement with care plan, +30 minutes. (7) DVT prophylaxis Current Visit: No Status: Acute Plan to address problem: SCD to bilateral lower extremities while in bed, patient is ambulatory. History Interval history: Patient seen and examined at bedside this morning. He has no complaints this morning. Patient's family wants patient to be transferred to [facility]. Discussed with facility-no beds available at this time. Neurology consulted this morning for episode of paralysis with difficulty with speech. MRI with and without contrast brain, MRA head and neck ordered. Hospitalist Physical - Constitutional Vitals: Temp Pulse Resp BP Pulse Ox 97.6 F 58 L 18 164/68 98 05/17/20 07:36 05/17/20 10:00 05/17/20 03:53 05/17/20 07:36 05/17/20 10:00 General appearance: Present: no acute distress - EENT Eyes: Present: PERRL - Neck Neck: Present: supple - Respiratory Respiratory: bilateral: CTA - Cardiovascular Heart Sounds: Present: S1 & S2 - Extremities Extremities: No edema - Abdominal General gastrointestinal: soft, non-tender, non-distended, normal bowel sounds - Psychiatric Psychiatric: appropriate mood/affect - Neurologic Neurologic: CNII-XII intact HEART Score - HEART Score Troponin: Troponin T < 0.010 ng/mL (0.00-0.029) 05/15/20 10:49 Results - Labs CBC & Chem 7: 05/15/20 10:49 05/16/20 07:53 Labs: Laboratory Last Values WBC 5.9 K/mm3 (4.5-11.0) 05/15/20 10:49 RBC 3.67 M/mm3 (3.65-5.03) 05/15/20 10:49 Hgb 12.3 gm/dl (11.8-15.2) 05/15/20 10:49 Hct 35.5 % (35.5-45.6) 05/15/20 10:49 MCV 97 fl (84-94) H 05/15/20 10:49 MCH 34 pg (28-32) H 05/15/20 10:49 MCHC 35 % (32-34) H 05/15/20 10:49 RDW 13.2 % (13.2-15.2) 05/15/20 10:49 Plt Count 171 K/mm3 (140-440) 05/15/20 10:49 Lymph % (Auto) 26.0 % (13.4-35.0) 05/15/20 10:49 [place] % (Auto) 7.8 % (0.0-7.3) H 05/15/20 10:49 Eos % (Auto) 2.0 % (0.0-4.3) 05/15/20 10:49 Baso % (Auto) 1.7 % (0.0-1.8) 05/15/20 10:49 Lymph # (Auto) 1.5 K/mm3 (1.2-5.4) 05/15/20 10:49 [place] # (Auto) 0.5 K/mm3 (0.0-0.8) 05/15/20 10:49 Eos # (Auto) 0.1 K/mm3 (0.0-0.4) 05/15/20 10:49 Baso # (Auto) 0.1 K/mm3 (0.0-0.1) 05/15/20 10:49 Seg Neutrophils % 62.5 % (40.0-70.0) 05/15/20 10:49 Seg Neutrophils # 3.7 K/mm3 (1.8-7.7) 05/15/20 10:49 PT 13.6 Sec. (12.2-14.9) 05/15/20 10:50 INR 1.02 (0.87-1.13) 05/15/20 10:50 APTT 23.5 Sec. (24.2-36.6) L 05/15/20 10:50 Thrombin Time 14.6 Sec. (15.1-19.6) L 05/15/20 10:50 Sodium 140 mmol/L (137-145) 05/16/20 07:53 Potassium 4.2 mmol/L (3.6-5.0) 05/16/20 07:53 Chloride 103.3 mmol/L (98-107) 05/16/20 07:53 Carbon Dioxide 33 mmol/L (22-30) H 05/16/20 07:53 Anion Gap 8 mmol/L 05/16/20 07:53 BUN 14 mg/dL (9-20) 05/16/20 07:53 Creatinine 0.8 mg/dL (0.8-1.3) 05/16/20 07:53 Estimated GFR > 60 ml/min 05/16/20 07:53 BUN/Creatinine Ratio 18 % 05/16/20 07:53 Glucose 85 mg/dL (75-100) 05/16/20 07:53 POC Glucose 104 (70-105) 05/15/20 16:43 Calcium 8.5 mg/dL (8.4-10.2) 05/16/20 07:53 Magnesium 2.00 mg/dL (1.7-2.3) 05/15/20 10:49 Total Bilirubin 0.70 mg/dL (0.1-1.2) 05/15/20 10:49 AST 17 units/L (5-40) 05/15/20 10:49 ALT 11 units/L (7-56) 05/15/20 10:49 Alkaline Phosphatase 106 units/L (35-129) 05/15/20 10:49 Total Creatine Kinase 41 units/L (55-170) L 05/15/20 10:49 CK-MB (CK-2) 1.5 ng/mL (0.0-4.0) 05/15/20 10:49 CK-MB (CK-2) Rel Index 3.6 (0-4) 05/15/20 10:49 Troponin T < 0.010 ng/mL (0.00-0.029) 05/15/20 10:49 Total Protein 6.1 g/dL (6.3-8.2) L 05/15/20 10:49 Albumin 3.3 g/dL (3.9-5) L 05/15/20 10:49 Albumin/Globulin Ratio 1.2 % 05/15/20 10:49 Lipase 19 units/L (13-60) 05/15/20 10:49 TSH 11.250 mlU/mL (0.270-4.200) H 05/15/20 10:49 Free T4 0.96 ng/dL (0.76-1.46) 05/15/20 10:49 Digoxin 0.3 ng/mL (0.9-2.0) L 05/15/20 10:49 Blood Type A NEGATIVE 05/15/20 10:49 Antibody Screen Negative 05/15/20 10:49 - Diagnostic Impressions Diagnostic Impressions: Echocardiogram 05/15/20 13:25 Transthoracic Echocardiogram Indication: CHF BP: 105/45 Conclusions *The left ventricular chamber size is normal. *Mild concentric left ventricular hypertrophy is observed. *The estimated ejection fraction is 60-65%. *The left ventricular diastolic filling pattern is consistent with pseudonormalization. *The left atrium is moderate to severely dilated. *The right ventricle is mildly dilated. *The right ventricle is mildly dilated. *The right ventricular global systolic function is mildly reduced. *The right atrium is mildly dilated. *The right ventricular systolic pressure is calculated at 24 mmHg. Findings Procedure Info: The study quality is fair. Left Ventricle: The left ventricular chamber size is normal. Mild concentric left ventricular hypertrophy is observed. The estimated ejection fraction is 60-65%. The left ventricular diastolic filling pattern is consistent with pseudonormalization. Left Atrium: The left atrium is moderate to severely dilated. Right Ventricle: The right ventricle is mildly dilated. The right ventricular global systolic function is mildly reduced. Right Atrium: The right atrium is mildly dilated. Aortic Valve: The aortic valve is trileaflet. Mild aortic cusp sclerosis is present. There is no evidence of aortic regurgitation. There is no evidence of aortic stenosis. Mitral Valve: The mitral valve leaflets appear normal. There is posterior mitral annular calcification. There is trace of mitral regurgitation. There is no evidence of mitral stenosis. Tricuspid Valve: The tricuspid valve leaflets are normal. There is trace tricuspid regurgitation. The right ventricular systolic pressure is calculated at 24 mmHg. There is no tricuspid stenosis. Pulmonic Valve: The pulmonic valve is not well visualized. There is mild pulmonic regurgitation. There is no pulmonic stenosis. Pericardium: The pericardium appears normal. Aorta: The aorta appears normal. Pulmonary Artery: The main pulmonary artery is not well visualized. Venous: The inferior vena cava is not visualized. Measurements Chambers 2D Name Value Normal Range IVSd (2D) 1.11 cm (0.6 - 1.1) LVPWd (2D) 1.06 cm (0.6 - 1.1) LVIDd (2D) 4.24 cm (3.7 - 5.6) LVIDs (2D) 2.9 cm (2 - 3.8) LV FS (2D) 31.51 % - EF Teichholz (2D) 59.78 % - Ao root diameter (2D) 2.96 cm (2 - 3.7) Volumes/Mass Name Value Normal Range LA ESV SP 4CH (A/L) 122.08 ml - LA ESV SP 2CH (A/L) 102.49 ml - LA ESV BP (A/L) 118.34 ml - LA ESV BP (A/L) index 55.04 ml/m2 - LA ESV SP 4CH (MOD) 116.16 ml - LA ESV SP 2CH (MOD) 96.41 ml - LA ESV BP (MOD) 111.49 ml - LA ESV BP (MOD) index 51.85 ml/m2 - LV EDV SP 4CH (MOD) 130.37 ml - LV ESV SP 4CH (MOD) 43.31 ml - EF SP 4CH (MOD) 66.78 % - LV EDV SP 2CH (MOD) 109.75 ml - LV ESV SP 2CH (MOD) 43.28 ml - EF SP 2CH (MOD) 60.57 % - LV EDV BP 125.4 ml - LV ESV BP 44.72 ml - BP EF (MOD) 64.34 % - Diastolic/Systolic Function Name Value Normal Range MV E-wave Vmax 1.18 m/sec - MV deceleration time 467.84 msec - MV A-wave Vmax 0.65 m/sec - MV E:A ratio 1.82 ratio - Aortic Valve Name Value Normal Range AV Vmax 1.44 m/sec - AV VTI 33.78 cm - AV peak gradient 8.26 mmHg - AV mean gradient 4.11 mmHg - LVOT diameter 2.15 cm - LVOT Vmax 0.96 m/sec - LVOT VTI 24.83 cm - LVOT peak gradient 3.71 mmHg - LVOT mean gradient 1.81 mmHg - SV LVOT 90.21 ml - FACUNDO (continuity Vmax) 2.44 cm2 - FACUNDO (continuity VTI) 2.67 cm2 - Ascending Ao 2.58 cm - Tricuspid Valve Name Value Normal Range TV E-wave Vmax 0.53 m/sec - TR Vmax 2.31 m/sec - TR peak gradient 21.32 mmHg - RAP 3 mmHg - RVSP 24 mmHg - Pulmonic Valve/Qp:Qs Name Value Normal Range PV Vmax 1.2 m/sec - PV peak gradient 5.81 mmHg - KS end-diastolic Vmax 1.2 m/sec - RVOT Vmax 0.85 m/sec - RVOT VTI 19.29 cm - RVOT peak gradient 2.89 mmHg - PV acceleration time 125.59 msec - Echeverria/IV: Voiding Method Toilet IV Catheter Type [Left Hand] INT / Saline Lock IV Catheter Type [Right INT / Saline Lock Antecubital] Active Medications - Current Medications Current Medications: Generic Name Dose Route Start Last Admin Trade Name Freq PRN Reason Stop Dose Admin Acetaminophen 650 mg 05/15/20 13:20 05/16/20 10:53 Tylenol PO 650 mg Q4H PRN Administration Pain MILD(1-3)/Fever >100.5/VEGA Hydrocodone Bitart/Acetaminophen 1 each 05/15/20 13:25 05/17/20 07:41 [place] 5/325 PO 1 each Q6H PRN Administration PAIN MODERATE (4-7) Albuterol 2.5 mg 05/15/20 13:20 Proventil IH Q4H PRN Shortness Of Breath Aspirin 81 mg 05/16/20 10:00 05/17/20 09:07 Halfprin Ec PO 81 mg DAILY MATIAS Administration Atorvastatin Calcium 20 mg 05/16/20 22:00 05/16/20 21:20 Lipitor PO 20 mg HS MATIAS Administration Clopidogrel Bisulfate 75 mg 05/16/20 10:00 05/17/20 09:07 Plavix PO 75 mg QDAY MATIAS Administration Ferrous Sulfate 325 mg 05/16/20 10:00 05/17/20 09:07 Feosol PO 325 mg DAILY MATIAS Administration Gabapentin 600 mg 05/15/20 14:00 05/17/20 07:41 Gabapentin PO 600 mg TID MATIAS Administration Lisinopril 40 mg 05/16/20 10:00 05/17/20 09:07 Zestril PO 40 mg DAILY MATIAS Administration Multivitamins/Minerals 1 each 05/16/20 10:00 05/17/20 09:07 Theragran-M Tab PO 1 each QDAY MATIAS Administration Ondansetron HCl 4 mg 05/15/20 13:20 Zofran IV Q8H PRN Nausea And Vomiting Sodium Chloride 10 ml 05/15/20 22:00 05/17/20 09:07 Sodium Chloride Flush Syringe 10 Ml IV 10 ml BID MATIAS Administration Sodium Chloride 10 ml 05/15/20 13:20 Sodium Chloride Flush Syringe 10 Ml IV PRN PRN LINE FLUSH
--- NOTE | 2020-05-17 14:46 | Magnetic Resonance Report ---
NONENHANCED AND CONTRAST-ENHANCED MR SCAN OF THE BRAIN: INDICATION / CLINICAL INFORMATION: Fascia; loss of consciousness. TECHNIQUE: Multiplanar, multisequence MR images of the brain obtained. COMPARISON: CT scan of the head from 05/15/2020 FINDINGS: BRAIN / INTRACRANIAL CONTENTS: No acute ischemia, acute hemorrhage, mass effect, midline shift, or hy drocephalus. Chronic microbleed bordering the lateral wall of left lateral ventricle ; chronic ische byron changes in the jerad due to chronic small vessel disease; focal small chronic ischemic lesions in both cerebral hemispheres ; scattered deep hemispheric white matter lesions ([place] 1) due to chroni c small vessel disease Contrast enhanced series, motion-related artifacts obscuring the details; no definite enhancing lesio n CRANIOCERVICAL JUNCTION: No significant abnormality. VASCULAR FLOW-VOIDS: No significant abnormality. ORBITS: Post treatment changes in the right ocular globe from silicon injection SINUSES / MASTOIDS: No significant abnormality of visualized sinuses and mastoid air cells. ADDITIONAL FINDINGS: None. IMPRESSION: 1. No acute/subacute ischemia or hemorrhagic lesion Chronic ischemic changes due to small vessel disease in the jerad and in the periventricular white mat ter In the contrast enhanced series limited by motion related artifacts, no definite enhancing lesion Signer Name: Lorri Salinas MD Signed: 05/17/2020 2:41 PM Workstation Name: [id number]
--- NOTE | 2020-05-17 14:50 | Magnetic Resonance Report ---
MRA NECK WITH AND WITHOUT CONTRAST HISTORY: Aphasia COMPARISON: None. TECHNIQUE: Routine MRA of the neck is performed utilizing [id number] pre and post-contrast imagin g techniques. 3-D/MIP reformats postprocessed. Percentage stenosis is determined by direct quantitat kath measurements of distal internal carotid artery diameter compared with normal reference segments o r by criteria similar to NASCET where applicable. CONTRAST: 20 ml of Omniscan FINDINGS: Aortic arch: No significant abnormality. Cervical vertebral arteries: Foraminal segments of both vertebral arteries are normal Common carotid arteries: No significant abnormality. Carotid bifurcations:Normal Cervical internal carotid arteries: No significant abnormality. Additional findings: None. IMPRESSION: No significant abnormality. Signer Name: Lorri Salinas MD Signed: 05/17/2020 2:45 PM Workstation Name: [id number]
--- NOTE | 2020-05-17 14:52 | Magnetic Resonance Report ---
MRA HEAD WITHOUT CONTRAST HISTORY: Aphasia COMPARISON: None. TECHNIQUE: Routine MRA of the head is performed. 3-D/MIP reformats postprocessed. CONTRAST: None. FINDINGS: Intracranial vertebral arteries: No significant abnormality. Basilar artery: No significant abnormality. Posterior cerebral arteries: No significant abnormality. Intracranial internal carotid arteries: No significant abnormality. Anterior cerebral arteries: No significant abnormality. Middle cerebral arteries: No significant abnormality. Variants and anomalies:None Additional findings: None. IMPRESSION: No significant abnormality. Signer Name: Lorri Salinas MD Signed: 05/17/2020 2:47 PM Workstation Name: [id number]
[2020-05-17 17:13] VITALS: BP 154/62
--- NOTE | 2020-05-17 17:25 | Discharge Summary ---
Providers - Providers Date of Admission: 05/15/20 13:57 Date of discharge: 05/17/20 Attending physician: CATALINA SILVA 05/15/20 12:11 Speech Therapy Evaluation and Treat [CONS] Urgent Reason For Exam: failed swallow screen 05/15/20 13:20 Consult to Physician [CONS] Routine Comment: Consulting Provider: ALEYDA LOMBARDI Physician Instructions: Reason For Exam: symptomatic bradycardia 05/16/20 11:52 Consult to Physician [CONS] Routine Comment: Consulting Provider: RYAN WYATT Physician Instructions: Reason For Exam: syncope 05/17/20 11:16 Consult to Physician [CONS] Routine Comment: Consulting Provider: NATHANIEL MERCEDES Physician Instructions: Reason For Exam: TIA Primary care physician: LABORER LIVESTOCK Hospitalization Reason for admission: Passed out Condition: Fair Hospital course: 9 YO Male with HTN, [place], CHF, CAD S/P CABG, Obesity Hypoventilation Syndrome, HLD presents to ED for evaluation. Patient states that he was in his usual state of health and was ambulating to the kitchen to eat breakfast. Patient states that he experienced sudden onset of nausea followed by a near loss of consciousness. Patient reportedly went down to his knees without falling to the ground or losing consciousness. EMS was notified and upon arrival the patient was found to be in distress and subsequently transported to [facility] for further evaluation and care. Patient seen and evaluated in the emergency department. Lab and imaging studies reviewed. Patient found to have symptomatic bradycardia with heart rate in the 40s, as well as systems consistent with diastolic congestive heart failure. Patient admitted to telemetry. Cardiology team consulted in ED. Patient denies fever, chills, chest pain, palpitation, productive cough, skin rash, recent ill contacts, or known exposure to COVID-19. Prior admission on 03/31/2019 reviewed. All medication listed at time of admission has been reconciled. Advanced care planning conducted in ED. CTA CHEST : IMPRESSION: 1. No evidence for pulmonary embolism. 2. Mild cardiomegaly. 3. Mild bilateral interstitial thickening. This is a nonspecific finding but may suggest mild pulmonary edema. 4. Small hiatal hernia. ct head: IMPRESSION: 1. 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 05/16: Await cardiology evaluation we will also add a neurology evaluation due to vasovagal syncope although with transient paralysis. Anticipate discharge in a.m. if remains stable. We will continue to hold beta-marcy at this time. Plan of care discussed with the patient. 05/17. Patient reportedly had possible paralysis and difficulty with speech after admission. CT head performed on the day of admission was negative for any ischemia. Neurology has been consulted as patient will need to have an MRI of the brain. Neurology recommends MRI brain and MRA head and neck which have been ordered. Discussed case with patient's family today. There was also question of possible transfer of patient to [facility]. No available beds at [facility] at this time. Family have been updated 05/17. MRI brain, MRA head and neck showed no acute abnormality. He remains asymptomatic. His TSH is high but Free T4 is normal. He has risk of progression of heart disease and so I will start him on low dose synthroid and have a repeat thyroid function test in 6-8 weeks. He will need a sleep study as he had 2.2 sec pause while sleeping. A referral has been placed. He will be discharged home to follow up with his doctors Disposition: DC-01 TO HOME OR SELFCARE - Discharge Diagnoses (1) 1st degree AV block Status: Acute (2) Encephalopathy Status: Acute (3) Generalized weakness Status: Acute (4) Sinus bradycardia Status: Acute (5) Symptomatic bradycardia Status: Acute (6) Syncope Status: Acute (7) Coronary artery disease Status: Chronic (8) Hx of CABG Status: Chronic (9) Hyperlipidemia Status: Chronic (10) Hypertension Status: Chronic Qualifiers: Hypertension type: essential hypertension Qualified Code(s): I10 - Essential (primary) hypertension Core Measure Documentation - Palliative Care Palliative Care/ Comfort Measures: Not Applicable - Core Measures Any of the following diagnoses?: none Exam - Constitutional Vitals: Temp Pulse Resp BP Pulse Ox 97.8 F 60 20 154/62 98 05/17/20 16:58 05/17/20 16:58 05/17/20 16:58 05/17/20 16:58 05/17/20 16:58 General appearance: Present: no acute distress, well-nourished - EENT Eyes: Present: PERRL ENT: hearing intact, clear oral mucosa - Neck Neck: Present: supple, normal ROM - Respiratory Respiratory effort: normal Respiratory: bilateral: CTA - Cardiovascular Heart Sounds: Present: S1 & S2. Absent: rub, click - Extremities Extremities: pulses symmetrical, No edema Peripheral Pulses: within normal limits - Abdominal General gastrointestinal: Present: soft, non-tender, non-distended, normal bowel sounds Male genitourinary: Present: normal - Integumentary Integumentary: Present: clear, warm, dry - Musculoskeletal Musculoskeletal: gait normal, strength equal bilaterally - Psychiatric Psychiatric: appropriate mood/affect, intact judgment & insight - Neurologic Neurologic: CNII-XII intact, moves all extremities Plan Diet: low fat, low salt Additional Instructions: Stop coreg/carvedilol for now. Use isosorbide only if SBP > 140 for now. Continue rest of home medications. You have been started on low dose levothyroxine. You need to have a repeat thyroid function test in 6-8 weeks and have medication dose adjusted. Follow up with Dr Brody on 06/03 at 3 :15PM. Follow up with pulmonology for a sleep study Follow up with: PRIMARY CAREMD [Primary Care Provider] - 7 Days ETMO BRDOY MD [Staff Physician] - 7 Days APRIL BARBOZA MD [Staff Physician] - 7 Days Prescriptions: Levothyroxine [Synthroid] 25 mcg PO QAM #30 tablet
== END 2020-05-17 18:42 | disposition home or self-care (01) ==
LOC: ED 10:38 → 4A 13:57
PROVIDERS: ADMIT Internal Medicine; ATTEND Internal Medicine
DX: G45.9 Transient cerebral ischemic attack, unspecified (principal); I11.0 Hypertensive heart disease with heart failure; I50.9 Heart failure, unspecified; I25.10 Atherosclerotic heart disease of native coronary artery without angina pectoris; I25.2 Old myocardial infarction; E11.9 Type 2 diabetes mellitus without complications; E78.5 Hyperlipidemia, unspecified; E66.2 Morbid (severe) obesity with alveolar hypoventilation; I45.10 Unspecified right bundle-branch block; R29.713 NIHSS score 13; I44.0 Atrioventricular block, first degree; I73.9 Peripheral vascular disease, unspecified; G93.40 Encephalopathy, unspecified; H54.61 Unqualified visual loss, right eye, normal vision left eye; R07.89 Other chest pain; R53.1 Weakness; R00.1 Bradycardia, unspecified; R55 Syncope and collapse; Z68.34 Body mass index [BMI] 34.0-34.9, adult; Z95.1 Presence of aortocoronary bypass graft; Z90.49 Acquired absence of other specified parts of digestive tract; Z79.82 Long term (current) use of aspirin; Z98.890 Other specified postprocedural states; Z79.02 Long term (current) use of antithrombotics/antiplatelets
CPT/HCPCS: 36415; 70450; 70544; 70549; 70553; 71045; 71275; 80048; 80053; 80162; 82550; 82553; 82962; 83690; 83735; 84439; 84443; 84484; 85025; 85610; 85670; 85730; 86850; 86900; 86901; 92610; 93005; 93306; 94760; 96374; 96375; 99291; A9270; A9577; G0378; J2405; J3010; Q9967

== ENCOUNTER 2020-11-28 06:43 | Day surgery (SDC) | payer MEDICARE ==
[2020-11-28 07:36] LABS: Basophils % (Auto) 0.8 % (0.0-1.8); Eosinophils # (Auto) 0.1 K/mm3 (0.0-0.4); Eosinophils % (Auto) 1.6 % (0.0-4.3); Hematocrit 37.3 % (35.5-45.6); Lymphocytes # (Auto) 1.8 K/mm3 (1.2-5.4); Lymphocytes % (Auto) 28.8 % (13.4-35.0); Mean Corpuscular HGB Conc 35 % (32-34); Mean Corpuscular Volume 98 fl (84-94); Monocytes # (Auto) 0.5 K/mm3 (0.0-0.8); Monocytes % (Auto) 8.9 % (0.0-7.3); Platelet Count 141 K/mm3 (140-440); Red Blood Count 3.82 M/mm3 (3.65-5.03); Red Cell Distribution Width 13.6 % (13.2-15.2)
[2020-11-28 07:47] LABS: BUN/Creatinine Ratio 30; Blood Urea Nitrogen 30 mg/dL (9-20); Calcium 8.4 mg/dL (8.4-10.2); Hemolysis Index 4
--- NOTE | 2020-11-28 08:01 | Anesthesia Day of Surgery ---
Anesthesia Day of Surgery - Day of Surgery Patient Examined: Yes Patient H&P Reviewed: Yes Patient is NPO: Yes
--- NOTE | 2020-11-28 08:03 | Anesthesia Consultation ---
Anesthesia Consult and Med Hx Date of service: 11/28/20 - Airway Anesthetic Teeth Evaluation: Good, Edentulous (Upper) ROM Head & Neck: Adequate Mental/Hyoid Distance: Adequate Mallampati Class: Class III Intubation Access Assessment: Probably Good - Pre-Operative Health Status ASA Pre-Surgery Classification: ASA3 Proposed Anesthetic Plan: General, MAC - Pulmonary Hx Smoking: Yes (Quit) Hx Respiratory Symptoms: No - Cardiovascular System Hx Hypertension: Yes (1999) Hx Coronary Artery Disease: Yes Hx Heart Attack/AMI: Yes (2002 then CABG; 4 stents over the years-last 2014) Hx Angina: Yes (Last SL NTG >1 year ago) Hx Cardia Arrhythmia: Yes - Central Nervous System Hx Neuromuscular Disorder: Yes (Neuropathy on gabapentin) Hx Psychiatric Problems: No - Gastrointestinal Hx Gastroesophageal Reflux Disease: No (S/P Gastric bypass) - Endocrine Hx Renal Disease: No Hx Liver Disease: No Hx Non-Insulin Dependent Diabetes: Yes (HgbA1C 5.3 recently) Hx Thyroid Disease: Yes Hx Hypothyroidism: Yes - Hematic Hx Anemia: Yes - Other Systems Hx Cancer: No Hx Obesity: Yes
[2020-11-28] MEDS ORDERED: propofoL 200 MG/20 ML VIAL IV ONE (08:26)
[2020-11-28] MEDS ORDERED: LIDOCAINE MPF (2%) 20 MG/1 ML VIAL 5 ML ONE (08:26)
[2020-11-28] MEDS ORDERED: SODIUM CHLORIDE 0.9% 1000 ML 1,000 ML IV SCH (08:30)
[2020-11-28] MEDS ORDERED: ATROPINE 0.1% (1 MG/10 ML) CARDIAC SYRINGE ONE (08:42)
--- NOTE | 2020-11-28 09:04 | Electrocardiograph Report ---
[facility] Test Date: 2020-11-28 Test Time: 08:43:33 Pat Name: MARCO ANTONIO STODDARD JR Department: Room: Gender: M Care Taker: ADITYA : 1950 Requested By: DELFIN BRODY Order Number: [id number] Reading MD: Delfin Brody Measurements Intervals [place] Rate: 62 P: AR: QRS: -96 QRSD: 159 T: 1 QT: 467 QTc: 459 Interpretive Statements Atrial fibrillation RBBB and LAFB No previous ECG available for comparison Electronically Signed On 11-28-2020 9:04:24 EDT by Delfin Brody
--- NOTE | 2020-11-28 09:17 | Post Anesthesia Evaluation ---
- Post Anesthesia Evaluation Patient Participated: Yes Airway Patent: Yes Stable Respiratory Function: Yes Nausea/Vomiting: No Temp > 96.8F: Yes Pain Manageable: Yes Adequeate Hydration: Yes Anesthesia Complications: No Block Receding Appropriately: Not Applicable Patient on Ventilator: No
[2020-11-28 10:46] LABS: INR 1.28 (0.87-1.13)
[2020-11-28 10:47] LABS: Partial Thromboplastin Time 34.1 Sec. (24.2-36.6)
--- NOTE | 2020-11-28 11:08 | Cardiac Catherization Report ---
CARDIOVERSION REFERRING PHYSICIAN: Delfin Stubbs MD INDICATION FOR PROCEDURE: The patient is a pleasant 70-year-old gentleman found to have new atrial fibrillation, has been on systemic anticoagulation uninterrupted for over 2 months, here for elective cardioversion of atrial fibrillation. Risks, benefits, and alternatives discussed prior to obtaining informed consent. PROCEDURE IN DETAIL: The patient was brought to the catheterization suite in a post-absorptive state. Anesthesia at bedside. Once adequate sedation was obtained, the patient received 200 joules biphasic x 1 with successful resumption of sinus rhythm. There were no immediate complications. The patient tolerated the procedure well. CONCLUSIONS: Successful elective cardioversion of atrial fibrillation with resumption of sinus rhythm. No evident complications. Anesthesia to recover the patient. Results discussed with the patient and family. Follow up with me in the office. JOB# [id number] HARRIETT/PREET
[2020-11-28 11:09] VITALS: BP 155/63
--- NOTE | 2020-11-28 11:30 | Short Stay Summary ---
Short Stay Documentation Date of service: 11/28/20 - History H&P: obtained from office - Allergies and Medications Current Medications: Allergies No Known Allergies Allergy (Verified 11/28/20 07:14) Home Medications Medication Instructions Recorded Confirmed Last Taken Type Aspirin [Adult Aspirin] 81 mg PO DAILY 03/31/19 11/28/20 11/27/20 History AtorvaSTATin [Lipitor] 20 mg PO DAILY 03/31/19 11/28/20 11/27/20 History Clopidogrel [Plavix] 75 mg PO QDAY 03/31/19 11/28/20 11/27/20 History Furosemide [Lasix TAB] 40 mg PO DAILY 03/31/19 11/28/20 11/23/20 History Gabapentin [Neurontin] 600 mg PO TID 03/31/19 11/28/20 11/27/20 History Nitroglycerin [Nitrostat] 0.4 mg SL Q5M PRN 03/31/19 11/28/20 1 Year Ago History ~11/29/19 lisinopriL [Zestril TAB] 40 mg PO DAILY 03/31/19 11/28/20 11/27/20 History Isosorbide Dinitrate [Isordil] 30 mg PO DAILY 05/15/20 11/28/20 11/14/20 History Levothyroxine [Synthroid] 25 mcg PO QAM #30 tablet 05/17/20 11/28/20 11/27/20 Rx Active Medications Sodium Chloride (Nacl 0.9% 1000 Ml) 1,000 mls @ 42 mls/hr IV DIRECT MATIAS - Brief post op/procedure progress note Date of procedure: 11/28/20 Pre-op diagnosis: Atrial Fibrillation Post-op diagnosis: same Procedure: SHRUTHI with Cardioversion Anesthesia: local Estimated blood loss: none - Disposition Condition at discharge: Stable Disposition: [id number] TO HOME OR SELFCARE - Discharge Diagnoses (1) Afib Status: Acute Short Stay Discharge Plan Activity: advance as tolerated Diet: low fat, low cholesterol, low salt Wound: open to air, keep clean and dry, per your surgeon's advice Follow up with: PRIMARY CARE, [Primary Care Provider] - 7 Days TEMO BRODY MD [Staff Physician] - 7 Days (f/u with Dr Ricardo Brody in our [place] Office on 5/31/21 at 15:30. )
--- NOTE | 2020-12-01 09:27 | Electrocardiograph Report ---
[facility] Test Date: 2020-11-28 Test Time: 09:02:29 Pat Name: MARCO ANTONIO STODDARD JR Department: Room: Gender: M [employer]: ADITYA : 1950 Requested By: DELFIN BRODY Order Number: [id number] Reading MD: Delfin Brody Measurements Intervals Lane Rate: 59 P: ND: QRS: -101 QRSD: 166 T: 11 QT: 458 QTc: 456 Interpretive Statements Atrial fibrillation RBBB and LAFB Compared to ECG 11/28/2020 08:43:33 No significant changes Electronically Signed On 12-01-2020 9:27:22 EDT by Delfin Brody
== END 2020-11-28 11:40 | disposition home or self-care (01) ==
LOC: CATHLABREC 06:43
PROVIDERS: ATTEND Internal Medicine
DX: I48.0 Paroxysmal atrial fibrillation (principal); E11.51 Type 2 diabetes mellitus with diabetic peripheral angiopathy without gangrene; I25.10 Atherosclerotic heart disease of native coronary artery without angina pectoris; I10 Essential (primary) hypertension; E78.5 Hyperlipidemia, unspecified; G62.9 Polyneuropathy, unspecified; I11.0 Hypertensive heart disease with heart failure; I50.9 Heart failure, unspecified; K21.9 Gastro-esophageal reflux disease without esophagitis; E03.9 Hypothyroidism, unspecified; E66.9 Obesity, unspecified; Z79.899 Other long term (current) drug therapy; Z79.82 Long term (current) use of aspirin; Z87.891 Personal history of nicotine dependence; Z95.5 Presence of coronary angioplasty implant and graft; Z95.1 Presence of aortocoronary bypass graft; Z98.41 Cataract extraction status, right eye; Z98.42 Cataract extraction status, left eye; Z90.49 Acquired absence of other specified parts of digestive tract; Z98.890 Other specified postprocedural states; Z83.3 Family history of diabetes mellitus; Z80.0 Family history of malignant neoplasm of digestive organs; Z80.8 Family history of malignant neoplasm of other organs or systems; Z68.36 Body mass index [BMI] 36.0-36.9, adult; Z82.49 Family history of ischemic heart disease and other diseases of the circulatory system
CPT/HCPCS: 36415; 80048; 85025; 85610; 85730; 92960; 93005; J2704; J7030; J0461